=== PATIENT | female | born 1950 | race Caucasian/White ===

== ENCOUNTER 2018-01-14 00:30 | Inpatient (IN) | payer OTHER, MEDICAID ==
[2018-01-14] VITALS (11 sets, daily range): BP systolic 116–241; BP diastolic 41–116
[~2018-01-14] VITALS: Ht 172.7 cm; Wt 88.9 kg
--- NOTE | 2018-01-14 00:42 | NUR ---
BIB WHEELCHAIR TO ER BED 3
--- NOTE | 2018-01-14 00:50 | NUR ---
67/F CAME IN W C/O 07/20 GENERALIZED HEADACHE, ACUTE ONSE X 2 DAYS. PT REPORTS NAUSEA, DENIES V/D, DENIES VISUAL DISTURBANCES.AOX4, GCS 15. PMH: HTN, DM Addendum: 01/14/18 at 0109 by MEDNK DENIES SOB/CP. ALL LUNG SOUNDS CBTA, 16 RR EVEN AND UNLABORED. ELEVATED BP 231/113, ER MD MARCANO AWARE
[2018-01-14 00:57] LABS: BASOPHILS # (AUTO) 0.1 K/uL (0.00-0.22); BASOPHILS % (AUTO) 0.6 % (0.0-2.0); EOSINOPHILS % (AUTO) 0.5 % (0.0-4.0); HEMATOCRIT 37.3 % (36-48); LYMPHOCYTES # (AUTO) 3.1 K/uL (2.5-16.5); LYMPHOCYTES % (AUTO) 33.2 % (20.5-51.1); MEAN CORPUSCULAR HEMOGLOBIN 27 pg (27-31); MEAN CORPUSCULAR HGB CONC 32 g/dL (33-37); MEAN CORPUSCULAR VOLUME 84.8 fL (80-94); MONOCYTES # (AUTO) 0.5 K/uL (0.8-1.0); MONOCYTES % (AUTO) 5.2 % (1.7-9.3); NEUTROPHILS # (AUTO) 5.7 K/uL (1.8-7.7); NEUTROPHILS % (AUTO) 60.5 % (42.2-75.2); PLATELET COUNT (AUTO) 367 K/uL (140-450); RED CELL DISTRIBUTION WIDTH 13.4 % (11.6-13.7); WHITE BLOOD COUNT (AUTO) 9.5 K/uL (4.8-10.8)
[2018-01-14 01:15] LABS: PROTHROMBIN TIME 9.9 secs (10.8-13.4)
--- NOTE | 2018-01-14 01:20 | NUR ---
PT TAKEN TO CT
[2018-01-14 01:21] LABS: ANION GAP 17.3 (8-16); CARBON DIOXIDE 22.5 mmol/L (21-32); POTASSIUM 3.8 mmol/L (3.5-5.1)
[2018-01-14 01:22] LABS: ALBUMIN 3.6 g/dL (3.4-5.0); CREATININE 1.8 mg/dL (0.6-1.3); TOTAL BILIRUBIN 0.5 mg/dL (0.0-1.0)
[2018-01-14] MEDS ORDERED: LABETALOL 100 MG/20 ML VIAL IVP ONE (01:25)
[2018-01-14 01:26] LABS: CREATINE KINASE MB 4.5 ng/mL (0-3.6)
[2018-01-14] MEDS ORDERED: INSULIN REGULAR, HUMAN 100 UNIT/ML VIAL IVP ONE (01:30)
[2018-01-14 01:48] LABS: FREE T4 (FREE THYROXINE) 0.96 ng/dL (0.76-1.46); THYROID STIMULATING HORMONE 0.75 uIU/mL (0.34-3.74)
[2018-01-14 02:18] LABS: BARBITURATE, URINE NEGATIVE ng/ml (NEG <=200); BENZODIAZEPINE, URINE NEGATIVE ng/mL (NEG <=200); CANNABINOID, URINE NEGATIVE ng/mL (NEG <=50); COCAINE, URINE NEGATIVE ng/mL (NEG <=300); OPIATE, URINE NEGATIVE ng/mL (NEG <=2000); PHENCYCLIDINE SCREEN,URINE NEGATIVE ng/mL (NEG <=25)
[2018-01-14] MEDS ORDERED: ASPIRIN 325 MG TAB PO ONE (02:25)
[2018-01-14] MEDS ORDERED: INSULIN REGULAR, HUMAN 100 UNIT in NACL 0.9% 100 ML IV ONE ×2 (02:25)
--- NOTE | 2018-01-14 03:00 | NUR ---
Patient will be admitted to care of [facility]. Admited to ICU. Will go to room 5. Belongings list completed. BEDSIDE Report to SHOLA LINTON. INSULIN DRIP INFUSING
--- NOTE | 2018-01-14 03:10 | NUR ---
RECEIVED PT FROM ED NURSE.
--- NOTE | 2018-01-14 03:18 | NUR ---
PT ALERT AND ORIENTED X3, DROWSY, HISTORY OF CATARACTS. ABLE TO MOVE ALL EXTREMITIES, CLEAR SPEECH, S1 S2, NO EDEMA NOTED. BP ELEVATED 190S. LUNGS CLEAR TO AUSCULTATION, ABD SOFT NON DISTENDED, ACTIVE BOWEL SOUNDS. PT STATES SHE VOIDS REGULARLY. SKIN INTACT. PERIPHERAL IV TO R AC, INSULIN DRIP RUNNING @ 5 UNITS/HR. NO S/S OF DISTRESS NOTED. PT DENIES PAIN @ THIS TIME. WILL CONTINUE TO OBSERVE.
--- NOTE | 2018-01-14 03:20 | NUR ---
CALLED DR. SIMMONS FOR ORDERS FOR ELEVATED BP, ELEVATED BLOOD SUGAR. NEW ORDERS GIVEN, WILL CARRY OUT. SEE ORDER HISTORY FOR DETAILS.
[2018-01-14] MEDS ORDERED: LABETALOL 100 MG/20 ML VIAL ONE (03:37)
[2018-01-14] MEDS: LABETALOL 100 MG/20 ML VIAL IV PRN ×2 (03:42→20:56)
[2018-01-14] MEDS: INSULIN REGULAR, HUMAN 100 UNIT in NACL 0.9% 100 ML IV SCH ×12 (03:43→23:02)
[2018-01-14] MEDS ORDERED: LORazepam 2 MG/ML VIAL IVP PRN (03:45)
[2018-01-14] MEDS ORDERED: MORPHINE SULFATE 4 MG/ML SYR IVP PRN (03:45)
[2018-01-14] MEDS ORDERED: ONDANSETRON 4 MG/2 ML VIAL IVP PRN (03:45)
[2018-01-14] MEDS ORDERED: ACETAMINOPHEN 325 MG TAB PO PRN (03:45)
[2018-01-14] MEDS: NACL 0.9% 1,000 ML IV SCH ×3 (04:49→23:58)
[2018-01-14] MEDS: cloNIDine 0.1 MG TAB PO PRN (04:49)
--- NOTE | 2018-01-14 04:49 | NUR ---
BP STILL ELEVATED, PRN CLONIDINE GIVEN
--- NOTE | 2018-01-14 06:11 | NUR ---
bs checked 435; pt remained on insulin drip at 5 units/hr
[2018-01-14] MEDS ORDERED: GLIP10TE PO (06:40)
[2018-01-14] MEDS ORDERED: [UNRECOGNIZED DRUG - CODE] PO (06:40)
[2018-01-14] MEDS ORDERED: METF850T PO (06:40)
[2018-01-14] MEDS ORDERED: LIP80 PO (06:40)
[2018-01-14] MEDS ORDERED: LORA-476 PO (06:40)
[2018-01-14] MEDS ORDERED: BLEOS OP (06:40)
--- NOTE | 2018-01-14 07:07 | NUR ---
BS CHECKED 402, INSULIN DRIP @ 5 UNITS/HR.
--- NOTE | 2018-01-14 07:10 | NUR ---
RECEIEVED REPORT FROM LIZ JOLLEY RN. PT IS SLEEP IN BED. PT IS AMBULATORY AND MOVES ALL EXTREMITIES. PT IS A&0X4. PERRLA. S1S2 HEARD. PT LUNG SOUNDS ARE CLEAR BILATERALLY. BOWEL SOUNDS ARE PRESENT AND ACTIVE IN ALL 4 QUADRANTS. PT HAS INSULIN DRINK 5 UNITS/ HR RUNNING, NS RUNNING 100ML/HR. PT HAS SCDS IN PLACE. PT'S BED IS IN LOWEST POSITION, BED LOCK AND ALARM ON, CALL LIGHT WITHIN REACH. Addendum: 01/14/18 at 1002 by Raysa Galan RN PTS SKIN IS IN TACT, WARM AND DRY. PT IS ABLE TO VOCALIZED ALL NEEDS.
--- NOTE | 2018-01-14 07:28 | NUR ---
REPORT GIVEN TO AM NURSE, ENDORSED POC. NO ACUTE DISTRESS NOTED.
[2018-01-14] MEDS: HYDROcodone/APAP 5/325 MG 1 TAB TAB PO PRN (08:45)
[2018-01-14] MEDS ORDERED: LORazepam 1 MG TAB PO PRN (09:35)
[2018-01-14] MEDS ORDERED: HYDROCHLOROTHIAZIDE 25 MG TAB PO SCH (09:42)
--- NOTE | 2018-01-14 09:45 | NUR ---
DR. SIMMONS CAME TO SEE PT. SPOKE WITH PT AND DAUGHTER.
[2018-01-14 09:48] LABS: CREATINE KINASE MB 1.9 ng/mL (0-3.6)
[2018-01-14] MEDS: BLOOD GLUCOSE MONITORING 1 DEV DEV FS SCH ×14 (10:00→23:01)
--- NOTE | 2018-01-14 10:17 | NUR ---
PATIENT HAS BEEN SCREENED AND CATEGORIZED HIGH NUTRITION RISK. PATIENT WILL BE SEEN WITHIN 1-2 DAYS OF ADMISSION. 01/14/18 - 01/15/[address]
--- NOTE | 2018-01-14 11:00 | NUR ---
PT RESTING COMFORTABLY. NO FAMILY PRESENT AT MOMENT
--- NOTE | 2018-01-14 12:30 | NUR ---
PTS FAMILY AT BEDSIDE. PT IS RESTING AND STATES SHE FEELS MUCH MORE COMFORTABLE.
[2018-01-14] MEDS: PREDNISOL/SULFACE 0.23%-10% OP SOL. 5 ML BTL LEFT EYE SCH ×3 (13:00→20:16)
--- NOTE | 2018-01-14 13:15 | NUR ---
PT ASKED IF SHE CAN EAT SHE IS STARVING, EDUCATED HER ON BLOOD SUGAR, INSULIN, FOOD. PT EDUCATION GIVEN AND SHE WAS THANKFUL FOR ADVISE SHE ADMITTED HER DM IS POORLY CONTROLLED.
[2018-01-14] MEDS ORDERED: PROBIOTIC SCREEN 1 EA MISC MC PRN (14:50)
--- NOTE | 2018-01-14 15:00 | NUR ---
HOURLY BLOOD SUGAR CHECKS. FAMILY AT BEDSIDE. BED ALARM ON, LOCK ON, CALL LIGHT WITHIN REACH, BED IN LOWEST PERSON.
--- NOTE | 2018-01-14 16:50 | NUR ---
NOTIFIED DR. PRESTON WHEN SHE ARRIVED TO SEE PT OF PTS CURRENT HIGH BLOOD PRESSURE. RECEIVED NEW ORDERS. WILL CLOSELY MONITOR.
[2018-01-14] MEDS ORDERED: NIFEdipine 30 MG TABER PO SCH (17:00)
--- NOTE | 2018-01-14 17:00 | NUR ---
PT IS BACK ASLEEP AFTER FAMILY LEFT. SHE HAS HAD A LOT OF FAMILY AT BEDSIDE AND STATED SHE IS UNABLE TO REST. I HAVE ASKED FAMILY TO COME BACK LATER AFTER PT HAS RESTED.
--- NOTE | 2018-01-14 18:00 | NUR ---
WHEN FAMILY LEFT EARLIER, I ASKED GRANDSON, TO BRING IN HIS GRANDMOTHERS MEDICATION FROM HOME IN WHICH SHE FREQUENTLY TAKES. MEDICATION RECONCILIATION IS SHOWING A FEW MEDICATIONS HER FAMILY MEMBERS DO NOT BELIEVE SHE IS TAKING. SAMANTHA JUST CALLED BACK SAYING HE WILL BRING IN ALL THE MEDS. HE READ ALOUD WHICH MEDICATION SHE HAS AT HOME IN ADDITION TO THE DATES. MANY ARE FROM 2017. FAMILY HAS ALSO ELECTED TO HAVE PT'S SON; CHRISTIANO PERRY, EMERGENCY CONTRACT HE IS HER MAIN CAREGIVER. PT HAS OVER 10 SIBLINGS AND FAMILY HAS DECIDED THAT ANDREEA WILL BE THE POINT OF CONTACT AND TO DIRECT FAMILY MEMBERS WHO CALL TO SPEAK WITH ANDREEA FOR UPDATES.
--- NOTE | 2018-01-14 18:45 | NUR ---
FIRST COLLECTION OF URINE FOR 24 HR URINE COLLECTION.
--- NOTE | 2018-01-14 19:20 | NUR ---
PHONE CALL MADE TO DR GUILLEN, TIMBER SELECTOR; LEFT MESSAGE TO CALL RN BACK.AWAITING REPLY
--- NOTE | 2018-01-14 19:30 | NUR ---
ASSUMED CARE OF PT.INITIAL ASSESSMENT COMPLETED.PT AWAKE ALERT AND ORIENTED X4.SR ON MONITOR.W/ PERIPHERAL IV TO RT AC G20 INFUSING INSULIN DRIP AT 3UNITS/HOUR; CANNULA OUT, INSULIN DRIP TRANSFERRED TO RT HAND G22 INTACT.PT DENIES N/V.SKIN INTACT.DENIES PAIN.REPOSITIONED.
[2018-01-14] MEDS: glipiZIDE 5 MG TAB PO SCH (20:15)
[2018-01-14] MEDS: ATORVASTATIN 80 MG TAB PO SCH (20:15)
--- NOTE | 2018-01-14 20:38 | NUR ---
SPOKE WITH DR. SAI SIMMONS (CARDIO) AT 2034 REGARDING CONSULT, MD SAID THAT HE WILL COME AND SEE THE PATIENT TOMORROW.
[2018-01-14] MEDS ORDERED: metFORMIN 850 MG TAB PO SCH (21:00)
--- NOTE | 2018-01-14 22:20 | NUR ---
FAMILY IN THE UNIT.UPDATED ON PTS PRESENT CONDITION.QUESTIONS ANSWERED. PT ASLEEP;EASILY AROUSABLE.NO SOB NOTED ON ROOM AIR.INSULIN AT 2 UNITS/HR AT THIS TIME.WILL CONTINUE TO CLOSELY MONITOR PT
[2018-01-15] VITALS (12 sets, daily range): BP systolic 107–165; BP diastolic 48–82
[2018-01-15] MEDS: BLOOD GLUCOSE MONITORING 1 DEV DEV FS SCH ×24 (00:02→23:07)
[2018-01-15] MEDS: INSULIN REGULAR, HUMAN 100 UNIT in NACL 0.9% 100 ML IV SCH ×40 (00:03→20:12)
--- NOTE | 2018-01-15 00:07 | NUR ---
pt up to bedside commode to urinate. continued on 24 hour urine collection.no sob noted on room air.denies pain.
--- NOTE | 2018-01-15 02:30 | NUR ---
PT ASLEEP;NO SIGNS OF DISTRESS NOTED.STILL ON INSULIN DRIP AT 1UNIT/HR.NO SOB NOTED
--- NOTE | 2018-01-15 05:09 | NUR ---
MORNING CARE DONE.PT UP TO BEDSIDE COMMODE.VOIDED.DENIES PAIN.
--- NOTE | 2018-01-15 06:20 | NUR ---
BS 131; CONTINUED ON INSULIN DRIP AT 1UNITS/HR.TOLERATING ROOM AIR .NO SOB NOTED.DENIES PAIN.
[2018-01-15 07:15] LABS: BASOPHILS # (AUTO) 0.1 K/uL (0.00-0.22); BASOPHILS % (AUTO) 0.6 % (0.0-2.0); EOSINOPHILS # (AUTO) 0.1 K/uL (0-0.4); EOSINOPHILS % (AUTO) 1.4 % (0.0-4.0); HEMATOCRIT 31.8 % (36-48); HEMOGLOBIN 10.4 g/dL (12.0-16.0); LYMPHOCYTES # (AUTO) 3.1 K/uL (2.5-16.5); LYMPHOCYTES % (AUTO) 30.2 % (20.5-51.1); MEAN CORPUSCULAR HEMOGLOBIN 28 pg (27-31); MEAN CORPUSCULAR HGB CONC 33 g/dL (33-37); MONOCYTES # (AUTO) 0.5 K/uL (0.8-1.0); MONOCYTES % (AUTO) 5.1 % (1.7-9.3); NEUTROPHILS # (AUTO) 6.4 K/uL (1.8-7.7); NEUTROPHILS % (AUTO) 62.7 % (42.2-75.2); PLATELET COUNT (AUTO) 268 K/uL (140-450); RED BLOOD CELL COUNT(AUTO) 3.79 MIL/uL (4.20-5.40); RED CELL DISTRIBUTION WIDTH 13.4 % (11.6-13.7); WHITE BLOOD COUNT (AUTO) 10.3 K/uL (4.8-10.8)
--- NOTE | 2018-01-15 07:25 | NUR ---
REPORT RECEIVED FROM NIGHT RN FOR CONTINUITY OF CARE. PATIENT IS AAO X4. SKIN WARM TO TOUCH WNL, TOENAILS WNL, NO EDEMA, FINE HAIR GROWTH AND +2 BILATERAL PEDAL PULSES. URINE AND BOWEL CONTINENT ABLE TO USE BEDSIDE COMMODE. RFA PERIPHERAL IV PATENT AND INTACT. CALL LIGHT WITHIN REACH. SAFETY MEASURES IN PLACE. WILL CONTINUE TO MONITOR.
[2018-01-15 07:40] LABS: ALBUMIN 2.7 g/dL (3.4-5.0); ANION GAP 16.2 (8-16); CARBON DIOXIDE 20.8 mmol/L (21-32); CREATININE 1.5 mg/dL (0.6-1.3); MAGNESIUM 2.1 mg/dL (1.8-2.4); PHOSPHORUS 3.1 mg/dL (2.5-4.9); TOTAL BILIRUBIN 0.4 mg/dL (0.0-1.0)
[2018-01-15 07:43] LABS: ANION GAP 16.7 (8-16); CARBON DIOXIDE 21.3 mmol/L (21-32); CREATININE 1.5 mg/dL (0.6-1.3)
[2018-01-15 07:59] LABS: CREATINE KINASE MB 3.6 ng/mL (0-3.6)
[2018-01-15] MEDS: NIFEdipine 30 MG TABER PO SCH (08:19)
[2018-01-15] MEDS: glipiZIDE 5 MG TAB PO SCH ×2 (08:19→20:46)
[2018-01-15] MEDS: HYDROCHLOROTHIAZIDE 25 MG TAB PO SCH (08:20)
--- NOTE | 2018-01-15 08:50 | NUR ---
DR. JULIA MANCINI IN, SEEN AND EXAMINED PATIENT. WILL FOLLOW UP WITH ORDERS.
[2018-01-15] MEDS: PREDNISOL/SULFACE 0.23%-10% OP SOL. 5 ML BTL LEFT EYE SCH ×4 (09:00→20:51)
[2018-01-15] MEDS ORDERED: LUBIPROSTONE PO SCH (09:00)
--- NOTE | 2018-01-15 09:48 | NUR ---
01/15/18 RD INITIAL ASSESSMENT COMPLETED PLEASE REFER TO NUTRITION ASSESSMENT UNDER CARE ACTIVITY FOR ESTIMATED NUTRITIONAL NEEDS. RD RECOMMENDATIONS: 1. CONTINUES ON CARDIAC, CCHO 60 GM DIET TOLERATED. 2. CONSULT RDN PRN. 3. RD WILL F/U 7 DAYS; LOW RISK. 5. RDN PROVIDED DIABETES/HEART HEALTHY DIET EDUCATION TO PATIENT AND/OR FAMILY; PT AND FAMILY ACCEPTED DIABETES/HEART HEALTHY DIET EDUCATION. DOMINGA LESLIE, , RDN
[2018-01-15] MEDS: NACL 0.9% 1,000 ML IV SCH ×2 (10:36→20:46)
--- NOTE | 2018-01-15 11:10 | NUR ---
DR. SIMMONS IN, SEEN AND EXAMINED PATIENT. WILL FOLLOW UP ON ORDERS.
[2018-01-15] MEDS: CHLORHEXADINE GLUC 2% CLOTH TP SCH (12:09)
[2018-01-15] MEDS: MUPIROCIN 2% OINT 22 GM TUBE TP SCH (13:45)
--- NOTE | 2018-01-15 19:25 | NUR ---
REPORT GIVEN TO NIGHT RN FOR CONTINUITY OF CARE. PATIENT IN STABLE CONDITION.
--- NOTE | 2018-01-15 19:30 | NUR ---
RECEIVED PT FROM DAY NURSE. NO ACUTE DISTRESS NOTED. WILL CONTINUE TO OBSERVE.
--- NOTE | 2018-01-15 19:45 | NUR ---
PT AAOX4, SITTING UP IN BED. NSR ON MONITOR S1 S2 NO EDEMA NOTED. LUNGS CTA. DENIES N/V/D. VOIDING IN BSC @ BEDSIDE. INSULIN DRIP RUNNING INTO R FOREARM. NS IVF RUNNING INTO R HAND. DENIES PAIN, DIZZINESS @ THIS TIME. NO ACUTE DISTRESS NOTED. WILL CONTINUE TO MONITOR.
[2018-01-15] MEDS: DOCUSATE SODIUM 100 MG GELCAP PO SCH (20:46)
[2018-01-15] MEDS: ATORVASTATIN 80 MG TAB PO SCH (20:46)
--- NOTE | 2018-01-15 21:30 | NUR ---
SON, HARLAN, CALLED UPDATED FAMILY WITH PT STATUS. NO ACUTE DISTRESS. WILL CONTINUE TO OBSERVE.
--- NOTE | 2018-01-15 23:15 | NUR ---
ASSISTED TO BEDSIDE COMMODE, 800 ML CLEAR YELLOW URINE NOTED.
[2018-01-16] VITALS (10 sets, daily range): BP systolic 124–171; BP diastolic 67–127
[2018-01-16] MEDS: BLOOD GLUCOSE MONITORING 1 DEV DEV FS SCH ×14 (00:33→20:22)
--- NOTE | 2018-01-16 01:30 | NUR ---
PT ASLEEP, RESTING COMFORTABLY NO S/S OF ACUTE DISTRESS NOTED. WILL CONTINUE TO OBSERVE.
--- NOTE | 2018-01-16 02:48 | NUR ---
PT RESTING COMFORTABLY NO S/S OF ACUTE DISTRESS NOTED. WILL CONTINUE TO MONITOR.
--- NOTE | 2018-01-16 04:35 | NUR ---
CHG BATH GIVEN, BACTROBAN APPLIED TO NARES PER PROTOCOL. LINEN CHANGED. PT SAT UP TO BEDSIDE COMMODE. PT DENIES PAIN @ THIS TIME. WILL CONTINUE TO OBSERVE.
[2018-01-16] MEDS: NACL 0.9% 1,000 ML IV SCH ×2 (05:26→19:29)
--- NOTE | 2018-01-16 06:35 | NUR ---
PT ASLEEP IN BED, VSS, DENIES PAIN. NO ACUTE DISTRESS. CONTINUE TO MONITOR
[2018-01-16 07:13] LABS: BASOPHILS # (AUTO) 0.1 K/uL (0.00-0.22); BASOPHILS % (AUTO) 0.6 % (0.0-2.0); EOSINOPHILS # (AUTO) 0.2 K/uL (0-0.4); HEMATOCRIT 31.6 % (36-48); HEMOGLOBIN 10.4 g/dL (12.0-16.0); LYMPHOCYTES # (AUTO) 2.7 K/uL (2.5-16.5); LYMPHOCYTES % (AUTO) 28.8 % (20.5-51.1); MEAN CORPUSCULAR HEMOGLOBIN 27 pg (27-31); MEAN CORPUSCULAR HGB CONC 33 g/dL (33-37); MEAN CORPUSCULAR VOLUME 83.3 fL (80-94); MONOCYTES # (AUTO) 0.5 K/uL (0.8-1.0); MONOCYTES % (AUTO) 5.7 % (1.7-9.3); NEUTROPHILS # (AUTO) 5.8 K/uL (1.8-7.7); NEUTROPHILS % (AUTO) 62.9 % (42.2-75.2); PLATELET COUNT (AUTO) 280 K/uL (140-450); RED BLOOD CELL COUNT(AUTO) 3.79 MIL/uL (4.20-5.40); WHITE BLOOD COUNT (AUTO) 9.3 K/uL (4.8-10.8)
[2018-01-16 07:23] LABS: ANION GAP 12.3 (8-16); CARBON DIOXIDE 22.8 mmol/L (21-32); CREATININE 1.2 mg/dL (0.6-1.3); POTASSIUM 4.1 mmol/L (3.5-5.1)
--- NOTE | 2018-01-16 07:29 | NUR ---
RECEIVED REPORT FROM NOC SHIFT RN. PT RESTING IN BED AWAKE, COMFORTABLY. SR ON MONITOR. PT A/O X4, ABLE TO MAKE NEEDS KNOWN. SKIN DRY AND WARM TO TOUCH, AFEBRILE. LUNGS SOUND CLEAR ON AUSCULTATION. PERIPHERAL LINES ON RIGHT FOREARM 22G AND RIGHT HAND 22G, INTACT. NS RUNNING AT 100 ML/HR. ABDOMEN SOFT ROUND AND NON-TENDER. ACTIVE BOWEL SOUND ON AUSCULTATION. DENIES PAIN AT THIS TIME. KEPT HOB ELEVATED. CALL LIGHT WITHIN REACH, BED IN LOW POSITION LOCKED. WILL CONTINUE TO MONITOR.
--- NOTE | 2018-01-16 07:29 | NUR ---
ENDORSED CARE TO DAY SHIFT RN. NO ACUTE DISTRESS NOTED.
[2018-01-16 07:31] LABS: MAGNESIUM 1.8 mg/dL (1.8-2.4); PHOSPHORUS 3.1 mg/dL (2.5-4.9)
[2018-01-16] MEDS: glipiZIDE 5 MG TAB PO SCH ×2 (08:23→20:24)
[2018-01-16] MEDS: NIFEdipine 30 MG TABER PO SCH (08:23)
[2018-01-16] MEDS: HYDROCHLOROTHIAZIDE 25 MG TAB PO SCH (08:24)
[2018-01-16] MEDS: PREDNISOL/SULFACE 0.23%-10% OP SOL. 5 ML BTL LEFT EYE SCH ×4 (08:26→20:23)
--- NOTE | 2018-01-16 08:28 | NUR ---
ADMINISTERED MEDICATION PER ORDERED. WILL CONTINUE TO MONITOR.
--- NOTE | 2018-01-16 09:29 | NUR ---
VEE AT BEDSIDE TALKING TO PT.
--- NOTE | 2018-01-16 09:53 | NUR ---
PT SEEN BY DR. MANCINI. WILL FOLLOW UP WITH ORDER.
[2018-01-16] MEDS: LABETALOL 100 MG/20 ML VIAL IV PRN ×2 (10:10→20:23)
[2018-01-16] MEDS ORDERED: DEXTROSE 50% 50 ML SYR IVP PRN (10:35)
[2018-01-16] MEDS: cloNIDine 0.1 MG TAB PO PRN (11:30)
[2018-01-16] MEDS: INSULIN LISPRO SLIDING SCALE 100 UNITS/ML VIAL SUBQ PRN ×3 (11:43→20:31)
[2018-01-16] MEDS: MUPIROCIN 2% OINT 22 GM TUBE TP SCH (12:55)
[2018-01-16] MEDS: CHLORHEXADINE GLUC 2% CLOTH TP SCH (12:56)
--- NOTE | 2018-01-16 13:00 | NUR ---
SEEN BY DR. MORALES. WILL FOLLOW UP ON ORDER.
--- NOTE | 2018-01-16 14:50 | NUR ---
PT SLEEPING IN BED. BP 144/72. NO RESPIRATORY DISTRESS NOTED. NO CHANGE IN LOC. WILL CONTINUE TO MONITOR.
--- NOTE | 2018-01-16 17:14 | NUR ---
PT TRANFERRED TO TELE UNIT BED 113 SAFELY VIA WHEELCHAIR. PT ON STABLE CONDITION. T-98 P -82 RR- 15 BP 144/69 SPO2 98%. BELONGING HANDED TO PT AND FAMILY. REPORT GIVEN TO TELE NURSE
--- NOTE | 2018-01-16 17:15 | NUR ---
PATIENT ARRIVED ON MST UNIT FROM ICU VIA WHEELCHAIR. PATIENT ABLE TO AMBULATE FROM WHEELCHAIR TO MST BED WITH STEADY GAIT. NO DISTRESS NOTED. DENIES ANY PAIN AT THIS TIME. RESPIRATIONS EVEN, UNLABORED, ON ROOM AIR. AAOX4, CALM, COOPERATIVE, SKIN COLOR APPROPRIATE TO ETHNICITY, WARM TO TOUCH. SKIN IS INTACT. LUNGS CTA ON ALL LOBES. ABDOMEN SOFT, OBESE. IV SITE INTACT, PATENT AND INFUSING IVF PER ORDERS. ORIENTED PATIENT TO ROOM AND CALL LIGHT. REVIEWED PLAN OF CARE WITH PATIENT. PATIENT VERBALIZED UNDERSTANDING. WILL CONTINUE TO MONITOR.
--- NOTE | 2018-01-16 18:30 | NUR ---
PATIENT SITTING IN BED WITH DINNER TRAY IN FRONT. NO DISTRESS NOTED. DENIES ANY PAIN. WILL CONTINUE TO MONITOR.
--- NOTE | 2018-01-16 19:15 | NUR ---
GAVE REPORT TO FORESTRY FARM LABORER NURSE FOR CONTINUITY OF CARE. PATIENT IN STABLE CONDITION.
--- NOTE | 2018-01-16 19:16 | NUR ---
RECEIVED REPORT FROM DAY NURSE, PT IN STABLE CONDITION. NO S/S OF DISTRESS NOTED. PT ON RA, AAOX4. IV TO RH 22G, AND R FA 22G, PATENT AND INTACT, INFUSING WELL. SKIN IS WARM AND DRY TO TOUCH, INTACT. RR EVEN/UNLABORED. INITIAL ASSESSMENT COMPLETED, PLAN OF CARE DISCUSSED WITH PT AND FAMILY AT THE BEDSIDE, VERBALIZED UNDERSTANDING. ALL SAFETY PRECAUTIONS MET, CALL LIGHT WITHIN REACH, BOARD UPDATED, WILL CONTINUE TO MONITOR
[2018-01-16] MEDS: ATORVASTATIN 80 MG TAB PO SCH (20:23)
[2018-01-16] MEDS: DOCUSATE SODIUM 100 MG GELCAP PO SCH (20:24)
[2018-01-16] MEDS: HYDROcodone/APAP 5/325 MG 1 TAB TAB PO PRN (20:24)
--- NOTE | 2018-01-16 21:30 | NUR ---
VSS; PT RESTING COMFORTABLY IN BED, NO S/S OF DISTRESS NOTED; RR EVEN/UNLABORED; ALL SAFETY PRECAUTIONS MET, WILL CONTINUE TO MONITOR.
[2018-01-17] VITALS: BP 142/65
--- NOTE | 2018-01-17 | NUR ---
VSS; PT RESTING COMFORTABLY IN BED, NO S/S OF DISTRESS NOTED; RR EVEN/UNLABORED; ALL SAFETY PRECAUTIONS MET, WILL CONTINUE TO MONITOR.
[2018-01-17 04:00] VITALS: BP 144/68
--- NOTE | 2018-01-17 04:06 | NUR ---
VSS; PT RESTING COMFORTABLY IN BED, NO S/S OF DISTRESS NOTED; RR EVEN/UNLABORED; ALL SAFETY PRECAUTIONS MET, WILL CONTINUE TO MONITOR.
[2018-01-17] MEDS: NACL 0.9% 1,000 ML IV SCH (05:52)
[2018-01-17] MEDS: BLOOD GLUCOSE MONITORING 1 DEV DEV FS SCH ×3 (06:47→16:30)
[2018-01-17 06:58] LABS: BASOPHILS # (AUTO) 0.1 K/uL (0.00-0.22); BASOPHILS % (AUTO) 0.8 % (0.0-2.0); EOSINOPHILS # (AUTO) 0.2 K/uL (0-0.4); EOSINOPHILS % (AUTO) 2.2 % (0.0-4.0); HEMATOCRIT 31.6 % (36-48); HEMOGLOBIN 10.3 g/dL (12.0-16.0); LYMPHOCYTES % (AUTO) 35.6 % (20.5-51.1); MEAN CORPUSCULAR HEMOGLOBIN 27 pg (27-31); MEAN CORPUSCULAR HGB CONC 33 g/dL (33-37); MEAN CORPUSCULAR VOLUME 83.8 fL (80-94); MONOCYTES # (AUTO) 0.5 K/uL (0.8-1.0); MONOCYTES % (AUTO) 5.6 % (1.7-9.3); NEUTROPHILS # (AUTO) 4.7 K/uL (1.8-7.7); NEUTROPHILS % (AUTO) 55.8 % (42.2-75.2); PLATELET COUNT (AUTO) 284 K/uL (140-450); RED BLOOD CELL COUNT(AUTO) 3.77 MIL/uL (4.20-5.40); RED CELL DISTRIBUTION WIDTH 13.4 % (11.6-13.7); WHITE BLOOD COUNT (AUTO) 8.5 K/uL (4.8-10.8)
[2018-01-17 07:26] LABS: ALBUMIN 2.6 g/dL (3.4-5.0); ANION GAP 13.3 (8-16); CARBON DIOXIDE 22.7 mmol/L (21-32); CREATININE 1.2 mg/dL (0.6-1.3); MAGNESIUM 1.8 mg/dL (1.8-2.4); PHOSPHORUS 3.6 mg/dL (2.5-4.9); TOTAL BILIRUBIN 0.3 mg/dL (0.0-1.0)
--- NOTE | 2018-01-17 07:27 | NUR ---
REPORT GIVEN TO DAY SHIFT NURSE FOR CONTINUITY OF CARE, PT IN STABLE CONDITION
--- NOTE | 2018-01-17 07:28 | NUR ---
RECEIVED REPORT FROM WASTE MANAGEMENT RECYCLING TECHNICIAN NURSE. PATIENT SITTING LYING IN BED SLEEPING, AROUSABLE BY VOICE. NO DISTRESS NOTED. DENIES ANY PAIN AT THIS TIME. RESPIRATIONS EVEN, UNLABORED, ON ROOM AIR. AAOX4, CALM, COOPERATIVE, SKIN COLOR APPROPRIATE TO ETHNICITY, WARM TO TOUCH. SKIN IS INTACT. LUNGS CTA ON ALL LOBES. ABDOMEN SOFT, NON-DISTENDED. IV SITE INTACT, PATENT, AND INFUSING IVF PER ORDERS. REVIEWED PLAN OF CARE WITH PATIENT. PATIENT VERBALIZED UNDERSTANDING. SAFETY MEASURES IN PLACE, CALL LIGHT WITHIN REACH. WILL CONTINUE TO MONITOR.
[2018-01-17 08:00] VITALS: BP 145/72
[2018-01-17] MEDS ORDERED: NIFEdipine 30 MG TABER PO SCH (09:00)
[2018-01-17] MEDS: PREDNISOL/SULFACE 0.23%-10% OP SOL. 5 ML BTL LEFT EYE SCH ×3 (09:29→18:02)
[2018-01-17] MEDS: glipiZIDE 5 MG TAB PO SCH (09:29)
--- NOTE | 2018-01-17 09:32 | NUR ---
PATIENT LYING IN BED WATCHING TV. NO DISTRESS NOTED. DENIES ANY PAIN. SCHEDULED MEDICATIONS DUE GIVEN. SAFETY MEASURES IN PLACE, CALL LIGHT WITHIN REACH. WILL CONTINUE TO MONITOR.
--- NOTE | 2018-01-17 11:00 | NUR ---
PATIENT SITTING IN BED WATCHING TV. NO DISTRESS NOTED. DENIES ANY PAIN. CONDITION UNCHANGED. WILL CONTINUE TO MONITOR.
[2018-01-17 12:00] VITALS: BP 185/92
[2018-01-17] MEDS: CHLORHEXADINE GLUC 2% CLOTH TP SCH (12:30)
[2018-01-17] MEDS: MUPIROCIN 2% OINT 22 GM TUBE TP SCH (12:30)
[2018-01-17] MEDS: INSULIN LISPRO SLIDING SCALE 100 UNITS/ML VIAL SUBQ PRN (12:40)
[2018-01-17] MEDS: cloNIDine 0.1 MG TAB PO PRN (12:46)
--- NOTE | 2018-01-17 12:48 | NUR ---
PATIENT SITTING IN BED WITH LUNCH TRAY. NO DISTRESS NOTED. DENIES ANY PAIN AT THIS TIME. SCHEDULED MEDICATIONS DUE GIVEN. CLONIDINE GIVEN PRN DUE TO HIGH BP. SAFETY MEASURES IN PLACE, CALL LIGHT WITHIN REACH. WILL CONTINUE TO MONITOR.
[2018-01-17] MEDS ORDERED: INSULIN LANTUS 100 UNITS/ML 10 ML VIAL SUBQ SCH (13:29)
[2018-01-17 16:00] VITALS: BP 139/69
--- NOTE | 2018-01-17 16:30 | NUR ---
GAVE REPORT TO ROYER RAND FOR CONTINUITY OF CARE FOR PATIENT. ANSWERED ALL QUESTIONS. PATIENT IN STABLE CONDITION.
[2018-01-17] MEDS ORDERED: BACTO TP (17:34)
[2018-01-17] MEDS ORDERED: ADA30 PO (17:34)
[2018-01-17] MEDS ORDERED: DOCU-299 PO (17:34)
[2018-01-17 18:15] VITALS: BP 135/88
--- NOTE | 2018-01-17 18:56 | NUR ---
PATIENT DISCHARGE TO HOME WITH BY AMBULATE. ALERT AND ORIENTED X3 STABLE CONDITION. V/S STABLE. INSTRUCTED DISCHARGE MEDS,DM MANAGEMENT,INFECTION CONTROL,F/U MD APPOINTMENT DATE. PATIENT ABLE TO SIGN DC PAPER AND VERBALIZED UNDERSTANDING.
[2018-01-18] MEDS ORDERED: INSULIN LANTUS 100 UNITS/ML 10 ML VIAL SUBQ SCH (09:00)
== END 2018-01-17 18:40 | disposition home or self-care (01) | DRG 304 ==
LOC: MED 00:30 → MIC 02:27 → MTU 01-16 17:57
PROVIDERS: ADMIT Preventive Medicine Preventive Medicine/Occupational Environmental Medicine; ATTEND Preventive Medicine Preventive Medicine/Occupational Environmental Medicine
DX: I16.0 Hypertensive urgency (principal); N17.0 Acute kidney failure with tubular necrosis; E87.2 Acidosis; E87.1 Hypo-osmolality and hyponatremia; E11.21 Type 2 diabetes mellitus with diabetic nephropathy; E11.69 Type 2 diabetes mellitus with other specified complication; E11.65 Type 2 diabetes mellitus with hyperglycemia; E88.81 Metabolic syndrome and other insulin resistance; E11.22 Type 2 diabetes mellitus with diabetic chronic kidney disease; D64.9 Anemia, unspecified; N20.0 Calculus of kidney; I65.23 Occlusion and stenosis of bilateral carotid arteries; N18.9 Chronic kidney disease, unspecified; E88.09 Other disorders of plasma-protein metabolism, not elsewhere classified; I12.9 Hypertensive chronic kidney disease with stage 1 through stage 4 chronic kidney disease, or unspecified chronic kidney disease; I25.10 Atherosclerotic heart disease of native coronary artery without angina pectoris; H53.8 Other visual disturbances; E66.9 Obesity, unspecified; R79.89 Other specified abnormal findings of blood chemistry; Z22.322 Carrier or suspected carrier of Methicillin resistant Staphylococcus aureus; Z79.4 Long term (current) use of insulin; Z91.19 Patient's noncompliance with other medical treatment and regimen; Z68.29 Body mass index [BMI] 29.0-29.9, adult
CPT/HCPCS: 36415; 70450; 71045; 76770; 80048; 80053; 80305; 82330; 82550; 82553; 82570; 82803; 82948; 83036; 83540; 83690; 83735; 84100; 84439; 84443; 84484; 85025; 85610; 85730; 87081; 93005; 93880; 96374; 96375; 99291; J1815; J3490; J7030; Q0092

== ENCOUNTER 2018-12-18 12:30 | Inpatient (IN) | payer MEDICAID, OTHER ==
[~2018-12-18] VITALS: Ht 175.3 cm; Wt 66.7 kg
[~2018-12-18 12:30] MED LIST: BACTO TP; BLEOS OP; DOCU-299 PO; GLIP10TE PO; LIP80 PO; LORA-476 PO; NIFE30TE98 PO; [UNRECOGNIZED DRUG - CODE] PO
[2018-12-18 12:49] VITALS: BP 124/66
[2018-12-18 13:34] LABS: ANION GAP 12.2 (8-16); APPEARANCE,URINE CLEAR (CLEAR); BILIRUBIN,URINE NEGATIVE (NEGATIVE); BLOOD, URINE TRACE-L (NEGATIVE); CARBON DIOXIDE 28.7 mmol/L (21-32); COLOR,URINE YELLOW (YELLOW); CREATININE 1.8 mg/dL (0.6-1.3); LEUKOCYTE ESTERASE ,URINE NEGATIVE (NEGATIVE); NITRITE, URINE NEGATIVE (NEGATIVE); PH,URINE 5.5 (5.0-9.0); POTASSIUM 3.9 mmol/L (3.5-5.1); UGLUCOSE 2+ (NEGATIVE)
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
[2018-12-18 13:44] LABS: ALBUMIN 3.6 g/dL (3.4-5.0); TOTAL BILIRUBIN 0.5 mg/dL (0.0-1.0)
--- NOTE | 2018-12-18 13:46 | NUR ---
PT TO ER BED 5
--- NOTE | 2018-12-18 13:50 | NUR ---
PATIENT PRESENTS TO ED WITH BEBA CHEIF C/O DIZZINESS THAT STARTED 2 DAYS AGO. PT ALSO C/O PAIN ON RIGHT ARM. HAS LEFT DIEBETIC FOOT, COVERED WITH DRESSING, INTACT DRESSING. DENIES N/V/D SKIN IS PINK/WARM/DRY; AAOX4 WITH EVEN AND STEADY GAIT. PT DENIES ANY FEVER, CP, SOB, OR COUGH AT THIS TIME. PATIENT STATES PAIN OF 7/10 AT THIS TIME. VSS. PATIENT POSITIONED FOR COMFORT. HOB ELEVATED. BEDRAILS UP X2. BED DOWN. ER MD MADE AWARE OF PT STATUS.
[2018-12-18 13:57] LABS: WBC,URINE 0-5 /HPF (0-5)
[2018-12-18 14:05] LABS: BASOPHILS % (AUTO) 0.3 % (0.0-2.0); EOSINOPHILS # (AUTO) 0.2 K/uL (0-0.4); EOSINOPHILS % (AUTO) 1.9 % (0.0-4.0); HEMATOCRIT 34.5 % (36-48); HEMOGLOBIN 11.4 g/dL (12.0-16.0); LYMPHOCYTES # (AUTO) 2.7 K/uL (2.5-16.5); LYMPHOCYTES % (AUTO) 28.2 % (20.5-51.1); MEAN CORPUSCULAR HEMOGLOBIN 27 pg (27-31); MEAN CORPUSCULAR HGB CONC 33 g/dL (33-37); MEAN CORPUSCULAR VOLUME 82.3 fL (80-94); MONOCYTES # (AUTO) 0.4 K/uL (0.8-1.0); MONOCYTES % (AUTO) 3.7 % (1.7-9.3); NEUTROPHILS # (AUTO) 6.2 K/uL (1.8-7.7); NEUTROPHILS % (AUTO) 65.9 % (42.2-75.2); PLATELET COUNT (AUTO) 359 K/uL (140-450); WHITE BLOOD COUNT (AUTO) 9.5 K/uL (4.8-10.8)
--- NOTE | 2018-12-18 14:15 | NUR ---
NO C/O HEADACHE OR DIZZINESS AT THIS TIME.
[2018-12-18] MEDS ORDERED: NACL 0.9% 1,000 ML IV ONE (14:21)
[2018-12-18] MEDS ORDERED: MECLIZINE 25 MG TAB PO ONE (14:25)
[2018-12-18] MEDS ORDERED: METOCLOPRAMIDE 10 MG TAB PO ONE (14:25)
[2018-12-18] MEDS ORDERED: ONDANSETRON 4 MG/2 ML VIAL IVP ONE (14:25)
[2018-12-18] MEDS ORDERED: FAMOTIDINE 20 MG TAB PO ONE (14:25)
[2018-12-18] MEDS ORDERED: hydrOXYzine HCL 25 MG TAB PO ONE (14:25)
[2018-12-18 14:58] LABS: AMYLASE 49 U/L (25-115); LIPASE 211 U/L (73-393)
[2018-12-18 15:35] LABS: PROTHROMBIN TIME 9.3 secs (10.8-13.4)
[2018-12-18] MEDS ORDERED: ACETAMINOPHEN 325 MG TAB PO PRN (15:35)
[2018-12-18] MEDS ORDERED: LORazepam 2 MG/ML VIAL IM/IVP PRN (15:35)
[2018-12-18] MEDS ORDERED: ONDANSETRON 4 MG/2 ML VIAL IM/IVP PRN (15:35)
[2018-12-18] MEDS ORDERED: ZOLPIDEM 5 MG TAB PO PRN (15:35)
[2018-12-18] MEDS ORDERED: MORPHINE SULFATE 2 MG/ML SYR IVP PRN (15:35)
[2018-12-18] MEDS ORDERED: DOCUSATE SODIUM 100 MG GELCAP PO PRN (15:35)
[2018-12-18 16:00] VITALS: BP 168/84
[2018-12-18 16:06] LABS: MAGNESIUM 1.7 mg/dL (1.8-2.4); PHOSPHORUS 4.4 mg/dL (2.5-4.9); THYROID STIMULATING HORMONE 1.4 uIU/mL (0.34-3.74)
[2018-12-18] MEDS ORDERED: DEXTROSE 50% 50 ML SYR IVP PRN (16:25)
[2018-12-18] MEDS ORDERED: ALBUTEROL SULFATE/IPRATROPIU 3 ML SOL IH PRN (16:25)
[2018-12-18] MEDS: BLOOD GLUCOSE MONITORING 1 DEV DEV FS SCH ×2 (16:30→21:29)
[2018-12-18] MEDS ORDERED: MECLIZINE 25 MG TAB PO PRN (16:45)
--- NOTE | 2018-12-18 16:45 | NUR ---
Patient noted to have existing wounds upon arrival to ER. Photos taken of wound and placed in chart. Wound covered with dressing. Physician informed.
--- NOTE | 2018-12-18 16:49 | NUR ---
Patient will be admitted to care of Dr. Nguyen. Admited to tele unit. Will go to room 120A. Belongings list completed.
--- NOTE | 2018-12-18 17:00 | NUR ---
PT TRANSFERRED TO [facility] 120A VIA [facility] ON STABLE CONDITION. BELONGINGS TAKEN WITH PT. REPORT GIVEN TO CASSI.
--- NOTE | 2018-12-18 17:00 | NUR ---
RECEIVED BEDSIDE REPORT FROM ROYER CHIU. PATIENT AAOX4. PATIENT ON ROOM AIR, NO DISTRESS NOTED. L MEDIAL FOOT DIABETIC ULCER, OPEN TO AIR. FALL RISK PROTOCOL IN PLACE, WALKER AT BEDSIDE. IV ON R AC 20 G INFUSING NS AT 60. IV ASYMPTOMATIC, PATENT AND INTACT. PATIENT ON TELE MONITOR AND STANDARD PRECAUTIONS IN PLACE. MRSA SWAB OF BOTH NARES DONE AND SENT TO LAB. BED IN LOW POSITION, CALL LIGHT WITHIN REACH, SIDE RAILS X2 UP. WILL CONTINUE TO MONITOR.
[2018-12-18] MEDS: NACL 0.9% 1,000 ML IV SCH (17:45)
[2018-12-18] MEDS ORDERED: MAGNESIUM OXIDE 400 MG TAB PO SCH (18:00)
--- NOTE | 2018-12-18 18:50 | NUR ---
PATIENT SLEEPING. NO DISTRESS NOTED, ON ROOM AIR. WILL CONTINUE TO MONITOR.
--- NOTE | 2018-12-18 19:10 | NUR ---
GAVE REPORT TO RENÉE. PATIENT ENDORSED IN STABLE CONDITION.
--- NOTE | 2018-12-18 19:11 | NUR ---
RECEIVED BEDSIDE REPORT FROM DAY SHIFT NURSE CASSI RN, PT STABLE, NO DISTRESS NOTED, IV TO L FA 20G PATENT, INTACT, INFUSING NS @ 60ML/HR, INFUSING WELL, PT ON ROOM AIR, NO SOB, PT STATED HAVING NO PAIN AT THIS MOMENT, INITIAL ASSESSMENT DONE, ALL SAFETY PRECAUTION MET, CALL LIGHT WITHIN REACH, WILL CONTINUE TO MONITOR.
[2018-12-18 20:00] VITALS: BP 156/84
[2018-12-18] MEDS: INSULIN LISPRO SLIDING SCALE 100 UNITS/ML VIAL SUBQ PRN (21:37)
--- NOTE | 2018-12-18 21:37 | NUR ---
CHECKED PT BLOOD SUGAR 196, INSULIN PER PROTOCOL ADMINISTERED, PT TOLERATED WELL, NO DISTRESS NOTED, CALL LIGHT WITHIN REACH, WILL CONTINUE TO MONITOR.
[2018-12-19] VITALS: BP 145/76
--- NOTE | 2018-12-19 00:10 | NUR ---
CHECKED ON PT, PT SLEEPING, V/S TAKEN, WITHIN PT BASELINE, CALL LIGHT WITHIN REACH, WILL CONTINUE TO MONITOR.
--- NOTE | 2018-12-19 02:07 | NUR ---
PT SLEEPING, NO DISTRESS NOTED, CALL LIGHT WITHIN REACH, WILL CONTINUE TO MONITOR,.
[2018-12-19] MEDS: NACL 0.9% 1,000 ML IV SCH (03:10)
[2018-12-19 04:00] VITALS: BP 144/75
--- NOTE | 2018-12-19 04:14 | NUR ---
CHECKED ON PT, PT SLEEPING, NO DISTRESS NOTED, V/S TAKEN, WITHIN PT BASELINE, CALL LIGHT WITHIN REACH, WILL CONTINUE TO MONITOR.
[2018-12-19] MEDS: BLOOD GLUCOSE MONITORING 1 DEV DEV FS SCH ×4 (05:46→20:31)
[2018-12-19] MEDS: HYDROcodone/APAP 5/325 MG 1 TAB TAB PO PRN ×2 (06:01→20:22)
[2018-12-19] MEDS ORDERED: PNEUMOCOCCAL VACCINE 23 MCG/0.5 ML VIAL IMVAC SCH (06:25)
[2018-12-19 06:40] LABS: BASOPHILS % (AUTO) 0.4 % (0.0-2.0); EOSINOPHILS # (AUTO) 0.1 K/uL (0-0.4); EOSINOPHILS % (AUTO) 1.9 % (0.0-4.0); HEMATOCRIT 31.2 % (36-48); HEMOGLOBIN 10.4 g/dL (12.0-16.0); LYMPHOCYTES # (AUTO) 2.5 K/uL (2.5-16.5); LYMPHOCYTES % (AUTO) 33.1 % (20.5-51.1); MEAN CORPUSCULAR HEMOGLOBIN 27 pg (27-31); MEAN CORPUSCULAR HGB CONC 33 g/dL (33-37); MEAN CORPUSCULAR VOLUME 82.1 fL (80-94); MONOCYTES # (AUTO) 0.4 K/uL (0.8-1.0); MONOCYTES % (AUTO) 5.5 % (1.7-9.3); NEUTROPHILS # (AUTO) 4.5 K/uL (1.8-7.7); NEUTROPHILS % (AUTO) 59.1 % (42.2-75.2); PLATELET COUNT (AUTO) 312 K/uL (140-450); RED CELL DISTRIBUTION WIDTH 13.8 % (11.6-13.7); WHITE BLOOD COUNT (AUTO) 7.5 K/uL (4.8-10.8)
[2018-12-19 06:51] LABS: CHOL/HDL RATIO 6.2 (1-4.5); MAGNESIUM 1.7 mg/dL (1.8-2.4)
[2018-12-19 06:52] LABS: ANION GAP 9.9 (8-16); CARBON DIOXIDE 28.9 mmol/L (21-32); CREATININE 1.8 mg/dL (0.6-1.3); POTASSIUM 3.8 mmol/L (3.5-5.1)
--- NOTE | 2018-12-19 07:22 | NUR ---
ENDORSED PT TO DAY SHIFT NURSE GRISELDA LINTON, PT STABLE, NO DISTRESS NOTED, CALL LIGHT WITHIN REACH, WILL CONTINUE TO MONITOR.
--- NOTE | 2018-12-19 07:30 | NUR ---
RECEIVED PT FROM WOOD PANEL INSPECTOR NURSE, RENÉE, PT IS AWAKE AND LYING ON THE BED WITH SIDE RAILS UP AND CALL LIGHT WITHIN REACH, PT HAS AN IV LINE ON THE RT FA G. 22 INTACT WITH NS AT 60ML/HR INFUSING, PT HAS A WALKER ON THE BEDSIDE AND USED FOR AMBULATION. PT HAS A DIABETIC ULCER NOTED ON THE LEFT FOOT. PT DENIES PAIN ANO SOB NOTED. WILL CONTINUE TO MONITOR PT.
[2018-12-19 08:00] VITALS: BP 154/86
--- NOTE | 2018-12-19 08:00 | NUR ---
PT IS AWAKE AND VITAL SIGNS TAKEN AND IS WITHIN NORMAL LIMIT, NO SIGN OF DISTRESS NOTED AND WILL CONTINUE TO MONITOR PT.
[2018-12-19 08:14] LABS: T4 (THYROXINE) 7.8 ug/dL (4.5-12.0)
--- NOTE | 2018-12-19 08:37 | NUR ---
PATIENT HAS BEEN SCREENED AND CATEGORIZED MODERATE NUTRITION RISK. PATIENT WILL BE SEEN WITHIN 3-5 DAYS OF ADMISSION. 12/21/18DHARMESH SAUCEDO RD
--- NOTE | 2018-12-19 11:24 | NUR ---
WOUND CARE EVALUATION NOTE: REASON FOR EVALUATION: LEFT FOOT WOUND SKIN ASSESSMENT DONE ON THIS 68 Y/O FEMALE PATIENT TO [facility], WITH INITIAL DIAGNOSIS OF DIZZINESS X 3 DAYS. PT IS AAX4 DURING ASSESSMENT. PAST MEDICAL HX: DM, HTN, HLD AND PER PT. HAS HX OF DIABETIC ULCER TO LEFT FOOT AND FOLLOW UP WITH A PODIATRY WITH HX OF DEBRIDEMENT TO LEFT FOOT ABOUT A MONTH AGO. PER PT. HER NEXT PODIATRY APPOINTMENT WILL BE ON 12/28/2018. PT. AMBULATED TO WITH 4WW, ABLE TO TURN AND REPOSITION . WOUND CARE PLAN DISCUSSED WITH PRIMARY RN AND PT. PT VERBALIZES UNDERSTANDING. PER PT. SHE AND HER DAUGHTER ARE ABLE TO DO THE WOUND CARE AT HOME. INTEGUMENTARY: -LEFT MEDIAL FOOT 1ST METATARSAL DIABETIC ULCER UN-STAGEABLE 2.5X2CM 100% BROWN ESCHAR, ROBERTH WOUND PALE PINK AND INTACT, NO PAIN -BLE MULTIPLE PIN POINTS OLD DRY SCABS RECOMMENDATIONS: -APPLY SOAKED BETADINE SOLUTION TO LEFT MEDIAL FOOT 1ST METATARSAL AND COVER WITH DRY DRESSING QD AND PRN IF SOILING. -CONTINUE TO FOLLOW PODIATRY OUT PATIENT. -OFFLOAD BILATERAL HEELS BY PLACING PILLOWS UNDER CALVES AT ALL TIMES, UNLESS OTHERWISE CONTRAINDICATED RECOMMENDATIONS DISCUSSED WITH PRIMARY RN. WILL FOLLOW UP PATIENT Q 7 -10 DAYS AND PRN. PLEASE CONTACT WOUND CARE NURSE FOR ANY QUESTIONS AND CHANGES IN SKIN CONDITION.
--- NOTE | 2018-12-19 11:25 | NUR ---
SKIN ASSESSMENT DONE TO PT BY WOUND CARE NURSE AND PT SHOWS NO SIGN OF PAIN AND DISTRESS, WILL MONITOR PT.
--- NOTE | 2018-12-19 11:30 | NUR ---
PT IS AWAKE AND VITAL SIGNS TAKEN AND IS WITHIN NORMAL LIMIT, BLOOD GLUCOSE CHECK DONE AND RESULT IS 234 AND INSULIN 4 UNITS WAS GIVEN AND PT TOLERATED IT. WILL MONITOR PT.
[2018-12-19] MEDS ORDERED: LORazepam 1 MG TAB PO PRN (11:55)
[2018-12-19 12:00] VITALS: BP 170/82
[2018-12-19] MEDS ORDERED: hydrALAZINE 20 MG/ML VIAL IVP PRN (12:00)
[2018-12-19] MEDS ORDERED: NIFEdipine 30 MG TABER PO SCH ×2 (12:01→19:00)
[2018-12-19] MEDS ORDERED: PREDNISOL/SULFACE 0.23%-10% OP SOL. 5 ML BTL OP SCH (13:00)
[2018-12-19] MEDS: INSULIN LISPRO SLIDING SCALE 100 UNITS/ML VIAL SUBQ PRN ×3 (13:17→20:30)
[2018-12-19 16:00] VITALS: BP 142/71
--- NOTE | 2018-12-19 17:15 | NUR ---
PT IS AWAKE AND VITAL SIGNS TAKEN AND IS WITHIN NORMAL LIMIT, ORAL MEDICATIONS WERE GIVEN AND BLOOD GLUCOSE CHECK DONE AND RESULT IS 228, INSULIN 4 UNITS WAS GIVEN ON THE RT UA AND PT TOLERATED IT. NO SIGN OF DISTRESS NOTED AND WILL MONITOR PT.
[2018-12-19] MEDS: glipiZIDE 5 MG TAB PO SCH (17:16)
--- NOTE | 2018-12-19 17:22 | NUR ---
PT IS AWAKE AND VITAL SIGNS CHECKED AND BP RESULT IS 142/71, BLOOD GLUCOSE CHECK DONE AND RESULT IS 228 AND 4 UNITS INSULIN WAS GIVEN ON THE RT UA, PT TOLERATED IT, PT DENIES PAIN AND NO SIGN OF DISTRESS NOTED. WILL MONITOR PT.
--- NOTE | 2018-12-19 19:20 | NUR ---
ENDORSED PT TO BASIN TENDER NURSEAARON FOR CONTINUITY OF CARE, PT IS AWAKE AND STABLE AT THIS TIME TALKING TO FAMILY ON THE BEDSIDE.
--- NOTE | 2018-12-19 19:21 | NUR ---
RECEIVED BEDSIDE REPORT FROM GRISELDA LINTON. PT IS AAO X 4. RESPIRATIONS ARE EQUAL AND UNLABORED. HAS IV ON R FA 20G NS IS INFUSING AT 60ML/H. PT USES WALKER WITH ASSIST. PT WITH L FOOT DM ULCER. WOUND CARE NURSE SAW PT TODAY. APPLIED BETADINE AND DRESSING. DRESSING SEEN WITH MINIMAL DRAINAGE. WILL CONTINUE TO MONITOR. FAMILY IS AT BEDSIDE. SAFETY MEASURES ARE IN PLACE. WILL CONTINUE TO MONITOR.
[2018-12-19 20:00] VITALS: BP 146/74
[2018-12-19] MEDS ORDERED: MAGNESIUM OXIDE 400 MG TAB PO SCH (20:00)
--- NOTE | 2018-12-19 20:31 | NUR ---
VITAL SIGNS ARE STABLE. PTS MG LEVEL LOW:1.7 MAG OX ADMINISTERED. PT STATES HAS PAIN 6/10 ON L FOOT ULCER. NORCO GIVEN. CALL LIGHT WITHIN REACH. WILL CONTINUE TO MONITOR.
[2018-12-19] MEDS ORDERED: DOCUSATE SODIUM 100 MG GELCAP PO SCH (21:00)
--- NOTE | 2018-12-19 21:00 | NUR ---
PT SHOWING FIRST DEGREE AV BLOCK ON TELE MONITOR. DR GUZMAN MADE AWARE. DR ORDERED EKG TO EVALUATE. WILL CONTINUE TO MONITOR.
[2018-12-20] VITALS: BP 127/68
--- NOTE | 2018-12-20 00:10 | NUR ---
VITAL SIGNS ARE STABLE.RESPIRATIONS ARE EQUAL AND UNLABORED. ASSISTED PT TO BATHROOM. PT USED HER WALKER. NO S/S OF DISTRESS. ALL NEEDS MET AT THIS TIME. WILL CONTINUE TO MONITOR.
--- NOTE | 2018-12-20 01:32 | NUR ---
PT IS SLEEPING. NO S/S OF DISTRESS NOTED. CALL LIGHT WITHIN REACH.
--- NOTE | 2018-12-20 03:03 | NUR ---
PT SLEEPING. NO S/S OF DISTRESS. CALL LIGHT WITHIN REACH.
[2018-12-20] MEDS: NACL 0.9% 1,000 ML IV SCH (03:05)
--- NOTE | 2018-12-20 03:20 | NUR ---
GAVE BEDSIDE REPORT TO RAUL LINTON. PT ENDORSED IN STABLE CONDITION.
--- NOTE | 2018-12-20 03:21 | NUR ---
RECEIVED REPORT FROM ROYER MICHELE FOR CONTINUITY OF CARE. PT IS A/OX4, ON ROOM AIR. PT ABLE TO MAKE NEEDS KNOWN, AND ABLE TO FOLLOW COMMANDS. PT AMBULATES WITH ASSISTANCE. PT HAS LEFT FOOT DIABETIC ULCER, SEE WOUND ASSESSMENT. PT HAS A 20G IV TO RIGHT FOREARM, ASYMPTOMATIC AND INTACT. VITAL SIGNS WITHIN NORMAL LIMITS. PT STABLE, DENIES PAIN, NO SIGNS OF DISTRESS NOTED AT THIS TIME. PT POSITIONED FOR COMFORT. BED IN LOWEST POSITION, BED ALARM ON. WILL CONTINUE TO MONITOR.
[2018-12-20 04:00] VITALS: BP 125/68
[2018-12-20] MEDS: BLOOD GLUCOSE MONITORING 1 DEV DEV FS SCH (06:13)
[2018-12-20] MEDS: INSULIN LISPRO SLIDING SCALE 100 UNITS/ML VIAL SUBQ PRN (06:16)
[2018-12-20] MEDS: glipiZIDE 5 MG TAB PO SCH (06:30)
--- NOTE | 2018-12-20 06:31 | NUR ---
ADMINISTERED SCHEDULED MEDICATIONS, PT TOLERATED WELL. 2 UNITS OF HUMALOG GIVEN FOR GLUCOSE LEVEL 183.
[2018-12-20 06:40] LABS: ANION GAP 10.4 (8-16); CARBON DIOXIDE 26.6 mmol/L (21-32); CREATININE 1.8 mg/dL (0.6-1.3)
[2018-12-20 06:41] LABS: MAGNESIUM 1.9 mg/dL (1.8-2.4); PHOSPHORUS 4.1 mg/dL (2.5-4.9)
[2018-12-20 06:49] LABS: BASOPHILS % (AUTO) 0.5 % (0.0-2.0); EOSINOPHILS # (AUTO) 0.2 K/uL (0-0.4); EOSINOPHILS % (AUTO) 2.6 % (0.0-4.0); HEMATOCRIT 28.1 % (36-48); HEMOGLOBIN 9.5 g/dL (12.0-16.0); LYMPHOCYTES # (AUTO) 2.2 K/uL (2.5-16.5); MEAN CORPUSCULAR HEMOGLOBIN 28 pg (27-31); MEAN CORPUSCULAR HGB CONC 34 g/dL (33-37); MEAN CORPUSCULAR VOLUME 82.5 fL (80-94); MONOCYTES # (AUTO) 0.5 K/uL (0.8-1.0); MONOCYTES % (AUTO) 6.2 % (1.7-9.3); NEUTROPHILS # (AUTO) 5.2 K/uL (1.8-7.7); NEUTROPHILS % (AUTO) 63.7 % (42.2-75.2); PLATELET COUNT (AUTO) 298 K/uL (140-450); RED BLOOD CELL COUNT(AUTO) 3.41 MIL/uL (4.20-5.40); RED CELL DISTRIBUTION WIDTH 13.7 % (11.6-13.7); WHITE BLOOD COUNT (AUTO) 8.2 K/uL (4.8-10.8)
--- NOTE | 2018-12-20 07:29 | NUR ---
ENDORSED PT TO DAY SHIFT RN CASSI AT BEDSIDE, FOR CONTINUITY OF CARE. PT IN STABLE CONDITION.
--- NOTE | 2018-12-20 07:30 | NUR ---
RECEIVED BEDSIDE REPORT FROM LOG BUYER NURSE. PATIENT ON TELE MONITOR. PATIENT AAOX4. ON ROOM AIR, NO DISTRESS NOTED. L MEDIAL FOOT DIABETIC ULCER DRESSING INTACT. PATIENT AMBULATORY W WALKER. PATIENT CONTINENT. IV ON R FA 20 G INFUSING NS AT 60, IV ASYMPTOMATIC, PATENT AND INTACT. BED IN LOW POSITION, CALL LIGHT WITHIN REACH, SIDE RAILS X2 UP. WILL CONTINUE TO MONITOR.
[2018-12-20 08:00] VITALS: BP 125/64
[2018-12-20] MEDS ORDERED: NIFEdipine 30 MG TABER PO SCH ×2 (09:00)
[2018-12-20] MEDS ORDERED: hydrALAZINE 10 MG TAB PO SCH (09:00)
[2018-12-20] MEDS ORDERED: ASPIRIN 81 MG TAB.CHEW PO SCH (09:00)
[2018-12-20] MEDS ORDERED: ATORVASTATIN 80 MG TAB PO SCH (09:00)
[2018-12-20] MEDS ORDERED: LISINOPRIL 20 MG TAB PO SCH (09:00)
--- NOTE | 2018-12-20 09:21 | NUR ---
FAMILY AT BEDSIDE. ADMINISTERED SCHEDULED MEDS. PATIENT TOLERATED WELL. WILL CONTINUE TO MONITOR. PATIENT STATED SHE NEEDS TO BE DISCHARGED BY 11 AM BECAUSE SHE HAS BUSINESS TO TAKE CARE OF.
[2018-12-20] MEDS ORDERED: ORE25 PO (10:40)
[2018-12-20 12:00] VITALS: BP 151/67
[2018-12-20] MEDS ORDERED: INSU100S22 SUBQ (12:01)
--- NOTE | 2018-12-20 12:26 | NUR ---
PATIENT EATING LUNCH. ON ROOM AIR, NO DISTRESS NOTED AT THIS TIME. ASKED PATIENT IF SHE STILL WANTED PNA VACCINE, PATIENT REFUSED. EDUCATED PATIENT ON IMPORTANCE OF VACCINE, BUT STILL REFUSED.
--- NOTE | 2018-12-20 13:25 | NUR ---
PROVIDED PATIENT WITH DISCHARGE INSTRUCTIONS. INSTRUCTED PATIENT TO FOLLOW UP WITH PCP WITHIN 5-7 DAYS. EDUCATED TO RETURN TO NEAREST ER WHEN EXPERIENCING SOB, FEVER, PAIN ETC. PROVIDED PATIENT WITH LIST OF NEW MEDICATIONS AND TO CONTINUE HOME MEDS. PRESCRIPTIONS ELECTRONICALLY SENT TO PHARMACY. ADVISED PATIENT TO ASSESS FEET DAILY FOR HER DIABETES AND TO FOLLOW UP WITH CLIENT RESOLUTION SPECIALIST. PHOTO TAKEN OF L MEDIAL DIABETIC FOOT ULCER. FLU UP TO DATE, REFUSED PNA VACCINE. REMOVED WRIST BANDS, TELE MONITOR, AND IV, IV TIP INTACT. PATIENT WITH ALL BELONGINGS TAKEN HOME INCLUDING WALKER. FAMILY AT BEDSIDE. ANSWERED ALL QUESTIONS AND CONCERNS. PATIENT VERBALIZED UNDERSTANDING.
== END 2018-12-20 13:25 | disposition home or self-care (01) | DRG 73 ==
LOC: MED 12:30 → MTU 15:36
PROVIDERS: ADMIT General Practice; ATTEND General Practice
DX: G90.8 Other disorders of autonomic nervous system (principal); N17.0 Acute kidney failure with tubular necrosis; N18.4 Chronic kidney disease, stage 4 (severe); E11.65 Type 2 diabetes mellitus with hyperglycemia; E83.42 Hypomagnesemia; Z79.899 Other long term (current) drug therapy; I12.9 Hypertensive chronic kidney disease with stage 1 through stage 4 chronic kidney disease, or unspecified chronic kidney disease; E11.22 Type 2 diabetes mellitus with diabetic chronic kidney disease; M19.90 Unspecified osteoarthritis, unspecified site; J45.909 Unspecified asthma, uncomplicated; E11.621 Type 2 diabetes mellitus with foot ulcer; L97.529 Non-pressure chronic ulcer of other part of left foot with unspecified severity; Z79.84 Long term (current) use of oral hypoglycemic drugs
CPT/HCPCS: 36415; 70450; 71045; 80048; 80053; 81001; 82140; 82150; 82948; 83036; 83690; 83735; 83880; 84100; 84436; 84443; 84484; 85025; 85610; 85730; 87081; 90732; 93005; 93880; 93925; 93970; 96374; 99285; J1644; J1815; J2405; J7030; J8597; Q0092

== ENCOUNTER 2021-02-06 07:57 | Inpatient (IN) | payer OTHER, SELFPAY ==
[~2021-02-06] VITALS: Ht 172.7 cm; Wt 86.2 kg
[2021-02-06] VITALS (16 sets, daily range): BP systolic 130–166; BP diastolic 57–84
[~2021-02-06 07:57] MED LIST changes: -BACTO TP; +INSU100S22 SUBQ; +NIFE-184 PO; -NIFE30TE98 PO
--- NOTE | 2021-02-06 08:04 | NUR ---
Patient transferred to bed 10 via wheelchair by tech. RN evaluating the patient at bedside.
--- NOTE | 2021-02-06 08:07 | NUR ---
Dr. Beach is evaluating the patient at bedside.
--- NOTE | 2021-02-06 08:16 | NUR ---
RT AT BEDSIDE.
[2021-02-06] MEDS ORDERED: ATI.5 PO (08:24)
[2021-02-06] MEDS ORDERED: LISI-487 PO (08:24)
[2021-02-06] MEDS ORDERED: ASPI-1822 PO (08:24)
[2021-02-06] MEDS ORDERED: METO-251 PO (08:24)
[2021-02-06] MEDS ORDERED: SULF-59 PO (08:24)
[2021-02-06] MEDS ORDERED: GABA100C PO (08:24)
[2021-02-06] MEDS ORDERED: AMLO10TA PO (08:24)
[2021-02-06] MEDS ORDERED: HYDR-5191 PO (08:24)
[2021-02-06] MEDS ORDERED: ICOS1SGL PO (08:24)
[2021-02-06] MEDS ORDERED: LORA10TA19 PO (08:24)
[2021-02-06] MEDS ORDERED: GLIP5TER PO (08:24)
[2021-02-06] MEDS ORDERED: ALBU0.0912 INH (08:26)
--- NOTE | 2021-02-06 08:38 | NUR ---
BIB FAMILY C/O SOB STARTING THIS AM. PT SPO2 73% ON ROOM AIR HX HYPERLIPIDEMIA, HTN, DM
--- NOTE | 2021-02-06 08:41 | NUR ---
PT CAME TO ED SOB AND IN DISTRESS. PLACED PT ON BIPAP WITH SETTINGS 12/6 RR 16 FIO2 100%. MD MARCANO AWARE OF SETTINGS AND AGREES. TITRATED FIO2 TO 40% SPO2 NOW IS 98% . PT VERBALIZED FEELING BETTER WITH BIPAP. BREATH SOUNDS CLEAR. PT HAS MEDIUM MASK WITH SKIN GEL UNDERNEATH. SKIN INTACT. BIPAP CONNECTED TO RED OUTLET. ALARMS AUDIBLE. WILL CONTINUE TO MONITOR.
[2021-02-06 08:45] LABS: BASOPHILS % (AUTO) 0.2 % (0.0-2.0); HEMATOCRIT 24.3 % (36-48); HEMOGLOBIN 7.9 g/dL (12.0-16.0); LYMPHOCYTES # (AUTO) 0.5 K/uL (2.5-16.5); LYMPHOCYTES % (AUTO) 5.8 % (20.5-51.1); MEAN CORPUSCULAR HEMOGLOBIN 28 pg (27-31); MEAN CORPUSCULAR HGB CONC 33 g/dL (33-37); MEAN CORPUSCULAR VOLUME 85.7 fL (80-94); MONOCYTES # (AUTO) 0.1 K/uL (0.8-1.0); MONOCYTES % (AUTO) 1.6 % (1.7-9.3); NEUTROPHILS # (AUTO) 7.6 K/uL (1.8-7.7); NEUTROPHILS % (AUTO) 92.4 % (42.2-75.2); PLATELET COUNT (AUTO) 166 K/uL (140-450); RED BLOOD CELL COUNT(AUTO) 2.83 MIL/uL (4.20-5.40); RED CELL DISTRIBUTION WIDTH 13.8 % (11.6-13.7); WHITE BLOOD COUNT (AUTO) 8.2 K/uL (4.8-10.8)
[2021-02-06] MEDS ORDERED: DEXAMETHASONE 4 MG/ML VIAL IVP ONE (08:50)
[2021-02-06 09:06] LABS: ALBUMIN 3.4 g/dL (3.4-5.0); ANION GAP 21.7 (8-16); CARBON DIOXIDE 12.6 mmol/L (21-32); POTASSIUM 5.3 mmol/L (3.5-5.1); TOTAL BILIRUBIN 0.6 mg/dL (0.0-1.0)
--- NOTE | 2021-02-06 09:24 | NUR ---
Dr. Beach is evaluating the patient at bedside.
[2021-02-06] MEDS ORDERED: AZITHROMYCIN 500 MG in DEXTROSE 5% 250 ML IV ONE (09:30)
[2021-02-06] MEDS ORDERED: ASPIRIN 325 MG TAB PO ONE (09:30)
[2021-02-06] MEDS ORDERED: cefTRIAXone 1,000 MG VIAL ONE (09:39)
--- NOTE | 2021-02-06 09:55 | NUR ---
Dr. Cardenas is evaluating the patient at bedside.
[2021-02-06] MEDS ORDERED: AZITHROMYCIN 500 MG INJ VIAL IV ONE (09:57)
[2021-02-06] MEDS ORDERED: DEXT 5% /NACL 0.9% 1,000 ML IV SCH (10:00)
[2021-02-06] MEDS ORDERED: HYDROcodone/APAP 7.5/325 MG 1 TAB PO PRN (10:00)
[2021-02-06] MEDS ORDERED: ONDANSETRON 4 MG/2 ML VIAL IM/IVP PRN (10:00)
[2021-02-06] MEDS ORDERED: DOCUSATE SODIUM 100 MG GELCAP PO PRN (10:00)
[2021-02-06] MEDS ORDERED: guaiFENesin DM 200/20 MG-10 ML 10 ML UDC PO PRN (10:00)
[2021-02-06] MEDS ORDERED: ZOLPIDEM 5 MG TAB PO PRN (10:00)
[2021-02-06] MEDS ORDERED: ACETAMINOPHEN 325 MG TAB PO PRN (10:00)
[2021-02-06] MEDS ORDERED: POTASSIUM CHLORIDE 40 MEQ, LIDOCAINE MPF 1% 25 MG in NACL 0.9% 250 ML IV PRN ×7 (10:00→11:05)
[2021-02-06] MEDS ORDERED: ALBUTEROL HFA MDI 90 MCG/ACTUATION 8 GM INH PRN (10:05)
[2021-02-06] MEDS ORDERED: ALBUTEROL SULFATE/IPRATROPIU 3 ML SOL IH PRN (10:05)
[2021-02-06] MEDS ORDERED: DEXTROSE 50% 50 ML SYR IVP PRN ×2 (10:10→11:05)
[2021-02-06] MEDS ORDERED: INSULIN LISPRO SLIDING SCALE 100 UNITS/ML VIAL SUBQ PRN (10:10)
[2021-02-06 10:26] LABS: PROTHROMBIN TIME 10.4 secs (10.8-13.4)
[2021-02-06] MEDS ORDERED: FUROSEMIDE 100 MG/10 ML VIAL IV SCH (10:30)
[2021-02-06 10:32] LABS: CHOL/HDL RATIO 3.9 (1-4.5); FREE T4 (FREE THYROXINE) 1.08 ng/dL (0.76-1.46); PHOSPHORUS 4.8 mg/dL (2.5-4.9); THYROID STIMULATING HORMONE 1.02 uIU/mL (0.34-3.74)
--- NOTE | 2021-02-06 10:32 | NUR ---
Patient will be admitted to care of Virginia Cardenas DO. Admited to ICU. Will go to room 8. Belongings list completed. Report to ROYER Mike.
--- NOTE | 2021-02-06 10:37 | NUR ---
RECEIVED REPORT FROM ED NURSE. PATIENT BROUGHT IN VIA GURNEY. ON BIPAP RR 12, 40% FIO2, 97% SPO2 WITH LABORED BREATHING AND ACCESSORY MUSCLE USE. R AC 20 G SL. SKIN INTACT. TAR POT MAN IN PLACE. SAFETY MEASURES IN PLACE. ENHANCED DROPLET PRECAUTIONS FOR COVID 19.
--- NOTE | 2021-02-06 10:37 | NUR ---
PT TRANSFERRED FROM ED TO ICU ON BIPAP WITH NO INCIDENT. BIPAP CONNECTED TO RED OUTLET, ALARMS AUDIBLE. PAGED MD GARCIA TO VERIFY HHN ORDER, WAITING FOR CALL BACK. WILL CONTINUE TO MONITOR.
--- NOTE | 2021-02-06 11:01 | NUR ---
ADMINISTERED SCHEDULED MEDS PER MD ORDER. MED EDUCATION PROVIDED, PATIENT VERBALIZES UNDERSTANDING. IV FLUID STARTED WITH ALL NEW TUBING. RIB CUTTER IN PLACE. SAFETY MEASURES IN PLACE.
[2021-02-06] MEDS ORDERED: INSULIN REGULAR, HUMAN 100 UNIT in NACL 0.9% 100 ML IV SCH ×2 (11:05)
[2021-02-06] MEDS ORDERED: INSULIN REGULAR, HUMAN 100 UNIT/ML VIAL IVP SCH (11:30)
[2021-02-06] MEDS ORDERED: BLOOD GLUCOSE MONITORING 1 DEV DEV FS SCH (11:30)
--- NOTE | 2021-02-06 11:41 | NUR ---
DC PLANNIN YRS OLD FEMALE PATIENT WAS ADMITTED FROM HOME WITH A DX OF COVID, RENAL FAILURE BIPAP AND NSTEMI. PT HAS A HX OF DM, HTN, BKA AND ASTHMA. CXR SHOWED DIFFUSED BILATERAL PULMONARY NODULES/INFILTRATES. RAPID COVID TEST POSITIVE. BLOOD CULTURE PENDING. ON BIPAP FIO2 100% SATING 96%. ORDERED CONVALESCENT PLASMA ,STARTED COVID PROTOCOL, IVF, IV ABX AZITHROMYCIN AND ROCEPHIN CONSULTED WITH CARDIO, PULMO,NEPHRO AND ID. DC PLAN PER PT RESPOND TO THE TREATMENT. CM TO FOLLOW. Addendum: 02/14/21 at 1511 by Zari Soni RN DC PLANNING: CALLED DR ARNOLD SPEECH AND HEARING DIRECTOR DISCUSSED THE DC PLAN IF PT NEEDS PERMANENT DIALYSIS OR TEMPORARY . PER DR ARNOLD IT'S HARD TO TELL NOW FOR THE KIDNEY TO RECOVER. HOWEVER PT NEEDS TUNNEL CATH WILL ORDER IT ON WEDNESDAY AND TO PLACE HER FOR OUT PATIENT DIALYSIS ,CAN GO TO [facility]. CM TO FOLLOW
[2021-02-06] MEDS: BLOOD GLUCOSE MONITORING 1 DEV DEV FS SCH ×13 (12:01→23:05)
[2021-02-06] MEDS: NACL 0.9% 1,000 ML IV SCH ×2 (12:01→22:34)
[2021-02-06 12:13] LABS: PHOSPHORUS 5.2 mg/dL (2.5-4.9)
[2021-02-06 12:26] LABS: ANION GAP 21.6 (8-16); CARBON DIOXIDE 12.7 mmol/L (21-32)
--- NOTE | 2021-02-06 12:39 | NUR ---
ABG, RR PUNCTURE ON BIPAP 12 07/15 40% pH 7.32 pCO2 22.0 pO2 82.2 HCO3 11.1 BE -13.5 Addendum: 02/06/21 at 1[address] DR[address] GARCIA CALLED, AWAITING CALL BACK
[2021-02-06 12:42] LABS: POTASSIUM 6.3 mmol/L (3.5-5.1)
--- NOTE | 2021-02-06 12:43 | NUR ---
ATTEMPTED TO SEE PATIENT FOR PHYSICAL THERAPY EVALUATION HOWEVER CHARGE NURSE REPORTED HOLD FOR ALL THERAPY DUE TO PLACEMENT OF BIPAP AT THIS TIME. WILL FOLLOW UP TOMORROW IF PATIENT APPROPRIATE.
--- NOTE | 2021-02-06 12:50 | NUR ---
TALK TO DR GARCIA INFORMED HIM LAB RESULT GLUCOSE 500 K 6.3 ,SO HE IS AWARE AND PT ALREADY RECEIVED INSULIN IVP AND INSULIN IV DRIP. SHE WILL BE OK.
--- NOTE | 2021-02-06 13:14 | NUR ---
CALL PLACE TO PICC RN LEAVE MESSAGE IN ANSWERING MACHINE, PT FOR PICC INSERTION.
[2021-02-06] MEDS: hydrALAZINE 25 MG TAB PO SCH ×2 (13:28→17:28)
[2021-02-06] MEDS: ALBUTEROL SULFATE/IPRATROPIU 3 ML SOL IH SCH ×2 (13:28→19:39)
[2021-02-06 16:36] LABS: ANION GAP 21.1 (8-16); CARBON DIOXIDE 13.7 mmol/L (21-32); MAGNESIUM 2.2 mg/dL (1.8-2.4); PHOSPHORUS 5.1 mg/dL (2.5-4.9); POTASSIUM 5.8 mmol/L (3.5-5.1)
[2021-02-06 16:39] LABS: CREATININE 4.9 mg/dL (0.6-1.3)
[2021-02-06 17:20] LABS: CKMB RELATIVE INDEX 1.1 (0.0-2.5); CREATINE KINASE MB 9.6 ng/mL (0-3.6)
--- NOTE | 2021-02-06 19:24 | NUR ---
ENDORSED PATIENT TO WAISTBAND SETTER LOCKSTITCH NURSE. PATIENT STABLE AT THIS TIME.
--- NOTE | 2021-02-06 19:30 | NUR ---
RECEIVED PT IN HIGH FOWLERS. DENIES PAIN UPON QUESTIONING. A/O X4. PUPILS 3MM, PERRL. BIPAP IN PLACE WITH FIO2 @ 35%RT FA PERIPHERAL IV IN PLACE, INFUSING NS @ 125 ML/H. REGULAR INSULIN @ 0.1 U/KG/H. LUNGS RHONCHI THROUGHOUT. +S1, S2 NOTED. SR-ST ON MONITOR. BOWEL SOUNDS ACTIVE X4. NO ABD DISTENTION/TENDERNESS NOTED. NPO EXCEPT MEDS AT THIS TIME. ABLE TO USE BEDPAN WITH ASSISTANCE AND FREQUENT EPISODES OF INCONTINENCE. LEFT BKA NOTED. SKIN WARM, DRY, AND INTACT. BED LOW AND LOCKED WITH CALL LIGHT IN EASY REACH. WILL CONTINUE TO MONITOR FOR CHANGES.
--- NOTE | 2021-02-06 19:49 | NUR ---
PT SEEN AND ASSESSED. PT IS AWAKE AND ALERT. FOUND PT ON BiPAP SETTINGS IPAP 10, EPAP 5, BACK UP RR 10, FiO2 30% WITH SPO2 OF 98%. MACHINE PLUGGED IN RED OUTLET, ALARM SET AND FUNCTIONING, AMBU BAG AT BEDSIDE. AUSCULTATION REVEALS CLEAR BILATERAL BREATH SOUNDS. NO NOTED RESPIRATORY DISTRESS AT THIS TIME. HHN TX GIVEN, AND PT TOLERATED TX WELL WITH NO ADVERSE REACTION. WILL CONTINUE TO MONITOR PT.
--- NOTE | 2021-02-06 19:52 | NUR ---
TITRATED FiO2 FROM 35% TO 30%. SPO2 95%. PT TOLERATING WELL AT THIS TIME. RN NOTIFIED. WILL CONTINUE TO MONITOR PT.
[2021-02-06 20:31] LABS: CREATININE 4.9 mg/dL (0.6-1.3)
[2021-02-06 20:46] LABS: MAGNESIUM 2.2 mg/dL (1.8-2.4)
[2021-02-06] MEDS: METOPROLOL 50 MG TAB PO SCH (21:51)
[2021-02-07] VITALS (20 sets, daily range): BP systolic 96–172; BP diastolic 54–82
[2021-02-07] MEDS: BLOOD GLUCOSE MONITORING 1 DEV DEV FS SCH ×24 (00:07→23:05)
[2021-02-07 00:27] LABS: PHOSPHORUS 5.1 mg/dL (2.5-4.9)
[2021-02-07 00:32] LABS: ANION GAP 22.3 (8-16); POTASSIUM 5.3 mmol/L (3.5-5.1)
[2021-02-07] MEDS: ALBUTEROL SULFATE/IPRATROPIU 3 ML SOL IH SCH ×4 (00:34→19:24)
--- NOTE | 2021-02-07 00:41 | NUR ---
NO NOTED RESPIRATORY DISTRESS AT THIS TIME. HHN TX GIVEN, AND PT TOLERATED TX WELL WITH NO ADVERSE REACTION. WILL CONTINUE TO MONITOR PT.
--- NOTE | 2021-02-07 00:58 | NUR ---
VENOUS BLOOD RESULTS REPORTED TO DR. DUPONT. WILL CONTINUE TO MONITOR PT.
--- NOTE | 2021-02-07 01:07 | NUR ---
WEANED PT FROM BiPAP TO HIGH FLOW BUBBLE HUMIDIFIER AT 6L. SPO2 94%. NO NOTED RESPIRATORY DISTRESS AT THIS TIME. WILL CONTINUE TO MONITOR PT.
[2021-02-07 04:22] LABS: HEMOGLOBIN 7.7 g/dL (12.0-16.0); MONOCYTES # (AUTO) 0.2 K/uL (0.8-1.0)
[2021-02-07 05:16] LABS: ANION GAP 23.1 (8-16); CARBON DIOXIDE 11.8 mmol/L (21-32); POTASSIUM 4.9 mmol/L (3.5-5.1)
[2021-02-07 06:02] LABS: BASOPHILS % (AUTO) 0.2 % (0.0-2.0); HEMATOCRIT 23.8 % (36-48); LYMPHOCYTES # (AUTO) 0.8 K/uL (2.5-16.5); LYMPHOCYTES % (AUTO) 7.7 % (20.5-51.1); MEAN CORPUSCULAR HEMOGLOBIN 28 pg (27-31); MEAN CORPUSCULAR HGB CONC 33 g/dL (33-37); MONOCYTES % (AUTO) 1.7 % (1.7-9.3); NEUTROPHILS # (AUTO) 9.5 K/uL (1.8-7.7); NEUTROPHILS % (AUTO) 90.4 % (42.2-75.2); PLATELET COUNT (AUTO) 178 K/uL (140-450); RED BLOOD CELL COUNT(AUTO) 2.76 MIL/uL (4.20-5.40); RED CELL DISTRIBUTION WIDTH 13.7 % (11.6-13.7); WHITE BLOOD COUNT (AUTO) 10.5 K/uL (4.8-10.8)
[2021-02-07 06:04] LABS: CREATININE 4.7 mg/dL (0.6-1.3)
[2021-02-07] MEDS ORDERED: hydrALAZINE 20 MG/ML VIAL IVP PRN (06:50)
--- NOTE | 2021-02-07 06:50 | NUR ---
DR. GARCIA RETURNED THE CALL AFTER THE FOURTH TIME PAGING HIM; GOT NEW ORDER FOR THE HIGH BP MEDS AND UPDATED HIM ABOUT THE PATIENT'S OTHER MEDICAL CONDITION; WITH NEW ORDERS, CARRIED OUT.
[2021-02-07] MEDS ORDERED: hydrALAZINE 20 MG/ML VIAL ONE (06:56)
--- NOTE | 2021-02-07 07:20 | NUR ---
RECEIVED REPORT FROM NIGHTSHIFT NURSE. PT RESTING IN BED. ABLE TO MAKE NEEDS KNOWN. HIGH FLOW WITH BUBBLER IN PLACE AT 10L. NO SOB OR RESPIRATORY DISTRESS. ISIDRO PICC LINE IS CLEAN, DRY, AND INTACT, INFUSING NS @ 125 ML/H. REGULAR INSULIN @ 0.1 U/KG/H. NPO EXCEPT MEDS AT THIS TIME. SKIN WARM AND DRY TO TOUCH, LEFT BKA NOTED. PT WITH MCCLAIN DRAINING VIA GRAVITY. SAFETY MEASURES IN PLACE. WILL CONTINUE TO MONITOR
[2021-02-07 07:39] LABS: PHOSPHORUS 4.9 mg/dL (2.5-4.9)
[2021-02-07] MEDS: NACL 0.9% 1,000 ML IV SCH ×3 (07:39→17:47)
[2021-02-07 08:08] LABS: T4 (THYROXINE) 7.2 ug/dL (4.5-12.0)
[2021-02-07 08:26] LABS: ANION GAP 27.4 (8-16); CARBON DIOXIDE 9.5 mmol/L (21-32); MAGNESIUM 1.8 mg/dL (1.8-2.4); PHOSPHORUS 4.8 mg/dL (2.5-4.9); POTASSIUM 4.9 mmol/L (3.5-5.1)
[2021-02-07 08:30] LABS: CREATININE 4.5 mg/dL (0.6-1.3)
--- NOTE | 2021-02-07 08:30 | NUR ---
RECIEVED CALL FROM LAB, PT BICARB IS 9.5, GLUCOSE 493, CR 4.5. DR. GARCIA MADE AWARE. WILL CONTINUE TO MONITOR
--- NOTE | 2021-02-07 08:51 | NUR ---
PATIENT HAS BEEN SCREENED AND CATEGORIZED MODERATE NUTRITION RISK. PATIENT WILL BE SEEN WITHIN 3-5 DAYS OF ADMISSION. 02/08/21 02/10/[address] Addendum: 02/07/21 at [address] PATIENT WAS RE-SCREENED AND CATEGORIZED HIGH NUTRITIONAL RISK FOR DKA. PATIENT WILL BE SEEN WITHIN 1-2 DAYS OF ADMISSION. 02/07/[address]
[2021-02-07] MEDS ORDERED: AZITHROMYCIN 250 MG TAB PO SCH (09:00)
[2021-02-07] MEDS: PANTOPRAZOLE 40 MG INJ VIAL IVP SCH (09:11)
[2021-02-07] MEDS: METOPROLOL 50 MG TAB PO SCH ×2 (09:14→20:02)
[2021-02-07] MEDS: ZINC SULF 220 MG CAP PO SCH (09:14)
[2021-02-07] MEDS: ASCORBIC ACID 500 MG TAB PO SCH (09:15)
[2021-02-07] MEDS: ATORVASTATIN 80 MG TAB PO SCH (09:15)
--- NOTE | 2021-02-07 09:15 | NUR ---
ADMINISTERED SCHED MED PRESCRIBED PER MD ORDER. PT TOLERATED WELL. MEDICATION EDUCATION PERFORMED. PT VERBALIZED UNDERSTANDING. SAFETY MEASURES IN PLACE. WILL CONTINUE TO MONITOR
[2021-02-07] MEDS: ASPIRIN 81 MG TAB.CHEW PO SCH (09:16)
[2021-02-07] MEDS: amLODIPine 5 MG TAB PO SCH (09:16)
[2021-02-07] MEDS: hydrALAZINE 25 MG TAB PO SCH ×3 (09:17→16:24)
--- NOTE | 2021-02-07 10:29 | NUR ---
SOCIAL WORK NOTE: Patient's Orientation Unable To Assess Information Provided By ANDREEA PERRY - SON Comments SW WAS UNABLE TO MEET PATIENT AT BEDSIDE. SW COMPLETED ASSESSMENT WITH PATIENT'S SON. Flexographic Press Operator, Realtionship and Phone Number DAIANA HOPKINS SON [phone] ANDREEA PERRY SON [phone] Healthcare Power of Weaver Hand No Does Patient Have a POLST No Identifying Problems No Social Work Triggers Is A Social Work Consult Needed No Mandate Report Filed No Explanation Of Identifying Problems PATIENT IS A 70-YEAR-OLD FEMALE ADMITTED FOR COVID AND RENAL DISEASE. PATIENT HAS PMHX OF ASTHMA, DIABETES, AND HYPERTENSION. Admitted From Home Pre-Admission Level Of Functioning Status Assist With ADL Level Of Functioning Comment PER SON, PATIENT REQUIRES ASSISTANCE WITH MEAL PREPARATION, BATHING, MEDICATION, AND TOILETING. Prior Resources/Services Used In Last 12 Months [facility] Prior Resources/Service Comments PATIENT RECEIVES 60 HOURS MONTHLY. Prior DME Walker Wheelchair Dialysis Comments N/A Living Situation Lives With Family House Patient Had Caregiver Yes Name and Contact Number Of Designated Caregiver ANDREEA PERRY - [phone] Home Support No Caregiver Issues Financial Issues No Known Financial Issue Referral To The Financial Counselor Needed No Factors/Needs No D/C Needs Identified Pt/Rep Participated In Discharge Plan Yes Patient/Family Agress With Discharge Plan Yes Discharge Plan Comments TENTATIVE DISCHARGE PLAN IS FOR PATIENT TO RETURN HOME. DC Plan Status Initiated
--- NOTE | 2021-02-07 11:28 | NUR ---
CRYSTAL EVALUATOR CALLED TO BEDSIDE, PT REMOVED O2 AND WAS HALF OUT OF BED, PT RR>30 RETURNED TO BIPAP TO RECOVER WITH SpO2 REURN>90%, WILL REST ON BiPAP WHILE RN MEDICATES.
--- NOTE | 2021-02-07 11:29 | NUR ---
PT CONFUSED AND TAKING OFF HIGH FLOW NASAL CANNULA WHILE TRYING TO CLIMB OUT OF BED. PT DESAT TO 67% ON ROOM AIR. PT AAOX1. CALLED RT FOR ASSISTANCE. PT PLACED ON BIPAP SATURATING AT 96%. PAGED DR. GARCIA FOR ORDERS. ORDERS RECEIVED. SAFETY MEASURES IN PLACE. WILL CONTINUE TO MONITOR
--- NOTE | 2021-02-07 11:30 | NUR ---
PT TOOK OFF BIPAP AND DESAT TO 70% ON ROOM AIR. EDUCATED PT ON IMPORTANCE OF OXYGEN MAINTAINCE. PT AAOX0 AND UNABLE TO VERBALIZE UNDERSTANDING. WILL CONTINUE TO MONITOR
[2021-02-07] MEDS: LORazepam 2 MG/ML VIAL IM/IVP PRN ×3 (11:48→23:35)
--- NOTE | 2021-02-07 11:48 | NUR ---
PT TOOK OFF BIPAP AND DESAT TO 72%. WHEN EDUCATING PATIENT ON IMPORTANCE PT UNABLE TO VERBALIZE UNDERSTANDING. PT AAOXO AND CONFUSED. PT UNABLE TO STATE WHERE SHE IS, WHAT THE DAY IS, OR WHAT THE YEAR IS. PT IS AWARE OF NAME. ADMINISTERED PRN ATIVAN PRESCRIBED PER MD ORDER. SAFETY MEASURES IN PLACE. WILL CONTINUE TO MONITOR
--- NOTE | 2021-02-07 12:32 | NUR ---
PT HAS NO RESTRAINTS. PT SLEEPING. RT AT BEDSIDE AND SPOKE TO DR. GARCIA. CHARGE NURSE SPOKE WITH DR. GARCIA WELL TO UPDATE. ORDERS RECEIVED. SAFETY MEASURES IN PLACE. WILL CONTINUE TO MONITOR
--- NOTE | 2021-02-07 12:45 | NUR ---
PT PULLED OUT PICC LINE AND MCCLAIN CATHETER. NO SIGNS OF BLEEDING OR DISTRESS AT THIS TIME. NO SIGNS OF DISTRESS. NEWLY PLACED 16FR MCCLAIN CATHETER INSERTED PER MD ORDER. WILL FOLLOW UP WITH PICC LINE PLACEMENT. PT IN SOFT BILATERAL UPPER EXTREMITY RESTRAINTS. SAFETY MEASURES IN PLACE. WILL CONTINUE TO MONITOR
[2021-02-07] MEDS: INSULIN REGULAR, HUMAN 100 UNIT in NACL 0.9% 100 ML IV SCH ×4 (13:00→19:13)
[2021-02-07 13:02] LABS: ANION GAP 20.5 (8-16); CARBON DIOXIDE 12.2 mmol/L (21-32); POTASSIUM 4.7 mmol/L (3.5-5.1)
[2021-02-07 13:03] LABS: MAGNESIUM 2.1 mg/dL (1.8-2.4); PHOSPHORUS 5.7 mg/dL (2.5-4.9)
[2021-02-07 13:18] LABS: CREATININE 4.7 mg/dL (0.6-1.3)
--- NOTE | 2021-02-07 13:30 | NUR ---
OBJECTIVE C DEVELOPER CALLED PICCRN PT FOR PICCLINE REINSERTION
[2021-02-07] MEDS ORDERED: MORPHINE SULFATE 2 MG/ML SYR IVP PRN (13:50)
[2021-02-07] MEDS: SODIUM BICARBONATE 8.4% PFS 50 MEQ/50 ML SYR IVP SCH ×2 (14:00→20:11)
[2021-02-07] MEDS ORDERED: FUROSEMIDE 100 MG/10 ML VIAL IV SCH (14:00)
--- NOTE | 2021-02-07 14:01 | NUR ---
PT IS IN SEVERE PAIN. PRN MORPHINE ADMINISTERED PRESCRIBED PER MD ORDER. PT TOLERATED WELL. SAFETY MEASURES IN PLACE. WILL CONTINUE TO MONITOR
--- NOTE | 2021-02-07 14:03 | NUR ---
02/07/21 RD INITIAL ASSESSMENT COMPLETED PLEASE REFER TO NUTRITION ASSESSMENT UNDER CARE ACTIVITY FOR ESTIMATED NUTRITIONAL NEEDS. 1. CURRENTLY NPO 2. IF/WHEN MEDICALLY CLEARED RECOMMEND SWALL[facility]. RD TO FOLLOW-UP 2-3 DAYS, HIGH RISK DHARMESH SAUCEDO, RD
--- NOTE | 2021-02-07 16:05 | NUR ---
PT BLOOD SUGAR IS 256. PT ON INSULIN DRIP. NO SIGNS OF DISTRESS. WILL CONTINUE TO MONITOR
[2021-02-07 17:32] LABS: ANION GAP 25.2 (8-16); CARBON DIOXIDE 10.8 mmol/L (21-32)
--- NOTE | 2021-02-07 17:45 | NUR ---
OBTAINED CONSENT FOR PICC LINE FROM TRICIA DORAN [phone] VERIFIED WITH SECOND NURSE. SAFETY MEASURES IN PLACE. WILL CONTINUE TO MONITOR
[2021-02-07 18:00] LABS: CREATININE 4.7 mg/dL (0.6-1.3)
--- NOTE | 2021-02-07 18:20 | NUR ---
PT RESTLESS, ATTEMPTING TO PULL OFF OXYGEN NC, GOWN, IV, AND MCCLAIN. PT AAOX0. ADMINISTERED PRN ATIVAN PRESCRIBED PER MD ORDER. PT TOLERATED WELL. SAFETY MEASURES IN PLACE. WILL CONTINUE TO MONITOR
[2021-02-07 18:51] LABS: MAGNESIUM 2.1 mg/dL (1.8-2.4); PHOSPHORUS 5.8 mg/dL (2.5-4.9)
--- NOTE | 2021-02-07 19:14 | NUR ---
ENDORSED TO NIGHTSHIFT FOR CONTINUITY OF CARE. PT IS STABLE
--- NOTE | 2021-02-07 19:15 | NUR ---
RECEIVED BEDSIDE REPORT FROM DAY SHIFT NURSE NICHO RN, PT RESTING, NO DISTRESS NOTED, BILATERAL SOFT WRIST RESTRAINTS, NO S/S OF INJURY, PT AWAKE ABLE TO LET NEEDS KNOWN, PT ON HIGH FLOW O2 30LPM, FIO2 100%, SATURATING @ 95%, NO SOB NOTED, IV TO R FA 24G, PATENT INTACT, INFUSING NS @ 100ML/HR, INSULIN DRIP @ 0.05UNIT/KG/HR, INFUSING WELL, MCCLAIN CATH IN PLACE DRAINING TO GRAVITY, INITIAL ASSESSMENT DONE, ALL SAFETY PRECAUTION MET, CALL LIGHT WITHIN REACH, WILL CONTINUE TO MONITOR.
--- NOTE | 2021-02-07 19:37 | NUR ---
SPEECH THERAPIST AT BEDSIDE DOING SWALLOW EVAL. PER ST PT IS NOT ABLE TO SWALLOW, IT IS NOT SAFE TO GIVE ANYTHING TO PT BY MOUTH. TO KEEP PT NPO.
--- NOTE | 2021-02-07 19:41 | NUR ---
PT WAS SEEN FOR DYSPHAGIA. PT WAS POCKETING AND HIGH RISK OF ASPIRATION FOR ANY PO TRIALS. RECOMMENDATION NOTHING BY MOUTH
[2021-02-07] MEDS: DEXT 5% / NACL 0.45% 1,000 ML IV SCH (19:45)
--- NOTE | 2021-02-07 20:02 | NUR ---
DUE MEDICATIONS ADMINISTERED, PT TOLERATED WELL, LOPRESSOR PO NOT GIVEN DUE TO PT FAILED SWALLOW EVAL. PT CURRENTLY NPO. WILL CONTINUE TO MONITO.
[2021-02-07] MEDS: MUPIROCIN CA NASAL 2% 1GM TUBE NS SCH (20:10)
[2021-02-07] MEDS: CHLORHEXADINE GLUC 2% CLOTH TP SCH (20:11)
[2021-02-07 20:25] LABS: CARBON DIOXIDE 13.7 mmol/L (21-32); POTASSIUM 3.7 mmol/L (3.5-5.1)
[2021-02-07 20:26] LABS: MAGNESIUM 2.1 mg/dL (1.8-2.4); PHOSPHORUS 3.7 mg/dL (2.5-4.9)
[2021-02-07 20:35] LABS: CREATININE 4.6 mg/dL (0.6-1.3)
--- NOTE | 2021-02-07 22:15 | NUR ---
PT RESTING, RESTLESS TRYING TO PULL LINES, RESTRAINTS IN PLACE, NO S/S OF INJURY.
--- NOTE | 2021-02-07 23:36 | NUR ---
DR GARCIA CALLED, TALKED TO DR GARCIA REGARDING PT STILL AGITATED AND RESTLESS, TRYING TO PULL LINES, PER DR GARCIA OK TO CHANGE THE ORDER OF ATIVAN TO Q4H INSTEAD OF Q6H. WILL CONTINUE TO WITH ORDERS.
[2021-02-08] VITALS (25 sets, daily range): BP systolic 101–164; BP diastolic 42–83
[2021-02-08] MEDS: BLOOD GLUCOSE MONITORING 1 DEV DEV FS SCH ×13 (00:05→20:21)
[2021-02-08 00:30] LABS: ANION GAP 20.4 (8-16); CARBON DIOXIDE 14.3 mmol/L (21-32); PHOSPHORUS 3.8 mg/dL (2.5-4.9); POTASSIUM 3.7 mmol/L (3.5-5.1)
[2021-02-08 00:32] LABS: CREATININE 4.5 mg/dL (0.6-1.3)
[2021-02-08] MEDS: ALBUTEROL SULFATE/IPRATROPIU 3 ML SOL IH SCH ×4 (00:52→19:00)
--- NOTE | 2021-02-08 02:12 | NUR ---
PT RESTING, NO DISTRESS NOTED, RESTLESS, RESTRAINTS IN PLACE, NO S/S OF INJURY, WILL CONTINUE TO MONITOR.
[2021-02-08] MEDS: LORazepam 2 MG/ML VIAL IM/IVP PRN ×3 (03:25→12:36)
--- NOTE | 2021-02-08 03:25 | NUR ---
PT VERY RESTLESS, TRYING TO GET OUT OF BED, EXPLAINED TO PT, REORIENT PT, PT STILL TRYING TO GET OUT OF BED, ATIVAN GIVEN PER DR DE LA TORRE, WILL CONTINUE TO LILLIAN. Addendum: 02/08/21 at 0327 by Mae Cooper RN NOTED V/S STABLE 143/73, HR 101, RR 26, O2 SAT 97% ON HIFLOW O2
[2021-02-08] MEDS: NACL 0.9% 1,000 ML IV SCH (03:49)
--- NOTE | 2021-02-08 03:55 | NUR ---
PT WENT TO CT, FOR CT HEAD, IN STABLE CONDITION.
--- NOTE | 2021-02-08 04:25 | NUR ---
CAME BACK FROM CT, PT TOLERATED WELL, WILL CONTINUE TO MONITOR.
[2021-02-08 06:03] LABS: BASOPHILS % (AUTO) 0.4 % (0.0-2.0); HEMATOCRIT 22.6 % (36-48); HEMOGLOBIN 7.4 g/dL (12.0-16.0); LYMPHOCYTES # (AUTO) 0.5 K/uL (2.5-16.5); LYMPHOCYTES % (AUTO) 4.5 % (20.5-51.1); MEAN CORPUSCULAR HEMOGLOBIN 28 pg (27-31); MEAN CORPUSCULAR HGB CONC 33 g/dL (33-37); MEAN CORPUSCULAR VOLUME 84.8 fL (80-94); MONOCYTES # (AUTO) 0.1 K/uL (0.8-1.0); MONOCYTES % (AUTO) 1.1 % (1.7-9.3); NEUTROPHILS # (AUTO) 11.3 K/uL (1.8-7.7); PLATELET COUNT (AUTO) 209 K/uL (140-450); RED BLOOD CELL COUNT(AUTO) 2.66 MIL/uL (4.20-5.40); RED CELL DISTRIBUTION WIDTH 14.1 % (11.6-13.7); WHITE BLOOD COUNT (AUTO) 12.1 K/uL (4.8-10.8)
[2021-02-08 06:16] LABS: ANION GAP 20.7 (8-16); CARBON DIOXIDE 14.9 mmol/L (21-32); POTASSIUM 3.6 mmol/L (3.5-5.1)
[2021-02-08 06:20] LABS: CREATININE 4.2 mg/dL (0.6-1.3)
--- NOTE | 2021-02-08 06:20 | NUR ---
NOTIFIED DR. GARCIA REGARDING PT BLOOD SUGAR 68 @ 6AM, ANION GAP STILL 20.7. PER DR TO CONTINUE INSULIN DRIP AND FLUIDS D5 1/2NS @ 150ML/HR. WILL CONTINUE WITH ORDERS.
[2021-02-08 06:23] LABS: MAGNESIUM 1.9 mg/dL (1.8-2.4); PHOSPHORUS 3.7 mg/dL (2.5-4.9)
[2021-02-08] MEDS: DEXT 5% / NACL 0.45% 1,000 ML IV SCH (06:37)
--- NOTE | 2021-02-08 07:17 | NUR ---
ENDORSED PT TO DAY SHIFT NURSE KANDACE LINTON FOR CONTINUOUS OF CARE.
--- NOTE | 2021-02-08 07:18 | NUR ---
RECEIVED REPORT FROM RADIOLOGICAL ENGINEER NURSE. PATIENT CONTINUES TO BE IN CRITICAL CONDITION. INSULIN DRIP INFUSING. ON HIGH FLOW 30L/MIN WITH 100% FIO2. SAFETY MEASURES IN PLACE, CALL LIGHT WITHIN REACH. WILL CONTINUE TO MONITOR.
[2021-02-08] MEDS: SODIUM BICARBONATE 8.4% PFS 50 MEQ/50 ML SYR IVP SCH ×2 (08:27→20:22)
[2021-02-08] MEDS: PANTOPRAZOLE 40 MG INJ VIAL IVP SCH (08:27)
[2021-02-08 08:32] LABS: ANION GAP 20.7 (8-16); CARBON DIOXIDE 14.1 mmol/L (21-32); POTASSIUM 3.8 mmol/L (3.5-5.1)
[2021-02-08 08:37] LABS: MAGNESIUM 1.8 mg/dL (1.8-2.4); PHOSPHORUS 3.6 mg/dL (2.5-4.9)
--- NOTE | 2021-02-08 08:56 | NUR ---
PATIENT RESPIRATIONS 32, ATIVAN GIVEN AT THIS TIME. RHONCHI SOUND HEARD ON ALL LUNG QUADRANTS. SCHEDULED IV MEDICATIONS DUE GIVEN. UNABLE TO GIVE ORAL MEDICATION AT THIS TIME DUE TO PATIENT LETHARGIC, MIGHT ASPIRATE. WILL NOTIFY DR. GARCIA. WILL CONTINUE TO MONITOR.
[2021-02-08] MEDS: ATORVASTATIN 80 MG TAB PO SCH (09:00)
[2021-02-08] MEDS: METOPROLOL 50 MG TAB PO SCH ×2 (09:00→20:22)
[2021-02-08] MEDS: ASCORBIC ACID 500 MG TAB PO SCH (09:00)
[2021-02-08] MEDS: ZINC SULF 220 MG CAP PO SCH (09:00)
[2021-02-08] MEDS: amLODIPine 5 MG TAB PO SCH (09:00)
[2021-02-08] MEDS: hydrALAZINE 25 MG TAB PO SCH ×2 (09:00→13:00)
[2021-02-08] MEDS: ASPIRIN 81 MG TAB.CHEW PO SCH (09:00)
--- NOTE | 2021-02-08 09:20 | NUR ---
DR. GARCIA AT BEDSIDE REVIEWING PLAN OF CARE WITH PATIENT. WILL CONTINUE TO MONITOR.
[2021-02-08 09:21] LABS: CREATININE 4.1 mg/dL (0.6-1.3)
--- NOTE | 2021-02-08 09:28 | NUR ---
PHONE CALL MADE TO SON ANDREEA PERRY FOR CONDITION UPDATE BY DR GARCIA
[2021-02-08] MEDS ORDERED: DEXTROSE 50% 50 ML SYR IVP PRN (09:35)
[2021-02-08] MEDS ORDERED: DEXT 5% / NACL 0.9% 500 ML IV SCH (09:40)
[2021-02-08 09:49] LABS: APPEARANCE,URINE SLIGHTLY HAZY (CLEAR); BILIRUBIN,URINE NEGATIVE (NEGATIVE); BLOOD, URINE 3+ (NEGATIVE); COLOR,URINE YELLOW (YELLOW); LEUKOCYTE ESTERASE ,URINE NEGATIVE (NEGATIVE); NITRITE, URINE NEGATIVE (NEGATIVE); PH,URINE 5.5 (5.0-9.0); UGLUCOSE NEGATIVE (NEGATIVE)
[2021-02-08 09:54] LABS: RBC,URINE 50-80 /HPF (0-5); WBC,URINE 0-5 /HPF (0-5)
[2021-02-08] MEDS: FUROSEMIDE 40 MG/4 ML VIAL IVP SCH ×2 (09:54→17:42)
[2021-02-08 09:55] LABS: URINE AMORPHOUS URATE 1+ /HPF (None Seen)
--- NOTE | 2021-02-08 09:55 | NUR ---
PICC LINE CENTER CONTACT, AND TOLD AMY IS THE PICC RN FOR [facility] AND HE WILL CALL SHORTLY.
--- NOTE | 2021-02-08 10:07 | NUR ---
RECEIVED CALL BACK FROM PICC RN AMY, THAT HE WILL BE HERE SHORTLY.
--- NOTE | 2021-02-08 10:11 | NUR ---
SCHEDULED MEDICATIONS DUE GIVEN. WILL CONTINUE TO MONITOR.
--- NOTE | 2021-02-08 10:33 | NUR ---
RECEIVED CALL FROM SON ANDREEA, UPDATED HIM WITH PATIENT'S CONDITION, AND PLAN OF CARE, ANDREEA WAS AWARE. ANDREEA REQUESTS TO ADD PATIENT'S SISTER AKIL Ferro. PN PROFILE, ALLOWED HER TO CALL FOR MEDICAL INFORMATION AND MAKE MEDICAL DECISION FOR PATIENT.
--- NOTE | 2021-02-08 10:58 | NUR ---
BP 162/75, P:108. PRN HYDRALAZINE GIVEN AT THIS TIME. ECHOCARDIOGRAM TECH AT BEDSIDE TO PERFORM ECHOCARDIOGRAM. WILL CONTINUE TO MONITOR.
[2021-02-08] MEDS: INSULIN LISPRO SLIDING SCALE 100 UNITS/ML VIAL SUBQ PRN ×3 (11:48→20:24)
--- NOTE | 2021-02-08 11:49 | NUR ---
SCHEDULED MEDICATIONS DUE GIVEN. WILL CONTINUE TO MONITOR.
--- NOTE | 2021-02-08 13:51 | NUR ---
ASSISTED RT AT BEDSIDE PERFORMING NASO SUCTIONING. PATIENT TOLERATED WELL. WILL CONTINUE TO MONITOR.
--- NOTE | 2021-02-08 15:36 | NUR ---
DR ORTIZ IS TALKING TO SON ANDREEA ON THE PHONE TO DISCUSS PLAN OF CARE.
[2021-02-08] MEDS ORDERED: MORPHINE SULFATE 50 MG in NACL 0.9% 45 ML IV PRN (15:40)
[2021-02-08] MEDS ORDERED: PROPOFOL 1000 MG/100 ML PREMIX 100 ML IV ONE (15:43)
--- NOTE | 2021-02-08 15:58 | NUR ---
PT INTUBATED BY WITHOUT INCIDENT. ETT 7.5 @22 TEETH/GUM SECURED WITH ANCHOR FAST DEVICE. ADEQUATE COLOR CHANGE ON CO2 DETECTOR. BILATERAL BREATH SOUNDS HEARD ON AUSCULTATION. CXR TO BE ORDERED.
--- NOTE | 2021-02-08 16:06 | NUR ---
PT PLACED ON VENTILATOR. CALCULATED VT PER IBW/KG SHOWN TO . VENT SETTINGS MADE BY AC 24, VT 375, PEEP 10 AND FIO2 100%, WILL OBTAIN ABG. VENT IS PLUGGED INTO A RED OUTLET WITH ALARMS ON AND FUNCTIONING.
--- NOTE | 2021-02-08 16:19 | NUR ---
assisted rt with intubation at bedside, pt tolerated intubation well, color change noted during bagging, and assisted casey placement after intubation.
--- NOTE | 2021-02-08 16:26 | NUR ---
RECEIVED VERBAL ORDER AT NURSING STATION FROM DR ORTIZ, TO DC ALL BLOOD PRESSURE MEDS: AMLODIPINE, HYDRALAZINE. DC PER MD ORDER.
[2021-02-08] MEDS: PROPOFOL 1000 MG/100 ML PREMIX 100 ML IV PRN (16:36)
--- NOTE | 2021-02-08 17:04 | NUR ---
PER ETT PULLED BACK 1CM TO 21cM TEETH/GUM.
--- NOTE | 2021-02-08 17:18 | NUR ---
ABG RESULTS GIVEN TO OVER PHONE. PHYSICIAN STATES TO WEAN FIO2 AT THIS TIME NO OTHER CHANGES TO BE MADE. NO REPEAT ABG ORDER. WILL CONTINUE TO MONITOR.
--- NOTE | 2021-02-08 17:42 | NUR ---
SCHEDULED MEDICATIONS DUE GIVEN. CLEANED AND TURNED PATIENT. WILL CONTINUE TO MONITOR.
--- NOTE | 2021-02-08 17:46 | NUR ---
FIO2 TITRATED TO 70%. SPO2 96%. PT NOT IN ANY DISTRESS AT THIS TIME. NURSE MADE AWARE OF CHANGE. VENT ALARMS ON AND FUNCTIONING. ETT IS SECURE WITH A PATENT AIRWAY.
--- NOTE | 2021-02-08 19:30 | NUR ---
RECEIVED PT ON AC/VC 375 f 24 70%, ETT SECURED AT 21CM. ETT CUFF MAY BE LEAKING/RUPTURED DUE TO OCCASIONAL GURGLE, AND APPEARS NOT TO BE HOLDING PRESSURE IN TOBACCO SORTER BALLOON. ED DR NOTIFIED AND WILL RE-ASSESS AND RE-INTUBATE IF NEEDED. PT IS RECEIVING ADEQUATE VOL AT THIS TIME W/ BILAT AUDIBLE B/S. PT SPO2 IS 96% VENT ALARMS ON AND AUDIBLE. AMBU AT BEDSIDE AND VENT PLUGGED INTO RED OUTLET. Tx NOT GIVEN AT THIS TIME DUE TO CUFF. WILL CONTINUE TO MONITOR
--- NOTE | 2021-02-08 19:50 | NUR ---
PER DR. MCCOY, STOP IVF.
--- NOTE | 2021-02-08 20:08 | NUR ---
RECEIVED REPORT FROM [facility] NURSE. PT ETT TO VENT, ACVC FI02 70%, TV 375, RATE 24, PEEP 10. VENT ALARMING, RT AT BEDSIDE. OGT IN PLACE, CONNECTED TO TUBE FEEDING NEPRO @ 20ML/HR. LUNG SOUNDS CLEAR, EQUAL CHEST RISE AND FALL. DIMINISHED AT BILATERAL BASES. RIJ CARLITOS CATH WITH PIGTAIL IN PLACE, DRESSING DRY AND INTACT. ISIDRO PICC IN PLACE, PROPOFOL @ 10MCG/KG/MIN, DRY WT. 93.89 KG. RASS -3, PT WITHDRAWS TO PAIN, IVF TKO. RIGHT FA 20G, SL. ABDOMEN LARGE, SOFT AND NONTENDER. BOWEL SOUNDS ACTIVE. MCCLAIN CATHETER IN PLACE, DRAINING BY GRAVITY, CLEAR YELLOW URINE NOTED. LEFT BKA. SKIN WARM AND DRY, INTACT, AFEBRILE. BILATERAL SOFT WRIST RESTRAINTS IN PLACE, NO INJURIES NOTED, CAP REFILL LESS THAN 3 SECONDS. QUICK RELEASE KNOTS. FLACC 0. HOB 30 DEGREES, SIDE RAILS UP, BED LOCKED AND IN LOWEST POSITION. DROPLET PRECAUTIONS IN PLACE. WILL CONTINUE TO MONITOR.
[2021-02-08] MEDS: MUPIROCIN CA NASAL 2% 1GM TUBE NS SCH (20:19)
[2021-02-08] MEDS: CHLORHEXADINE GLUC 2% CLOTH TP SCH (20:20)
[2021-02-08] MEDS ORDERED: LEVOFLOXACIN 500 MG/D5W PREMIX 100 ML IV SCH (21:00)
--- NOTE | 2021-02-08 21:14 | NUR ---
XRAY AT BEDSIDE, CHARGE NURSE TO ASSIST
--- NOTE | 2021-02-08 21:30 | NUR ---
CONFIRMED OGT PLACEMENT VIA AUSCULTATION,GASTRIC RESIDUALS 5 ML. SCHEDULED MEDS GIVEN. TURNED AND REPOSITION PT, SMALL BM NOTED. PROVIDED SKIN CARE, AND CHLORHEXIDINE BATH. PROVIDED ORAL CARE. PT WITHDRAWS TO PAIN AND SUCTIONING AND CLEANING. INCREASED TUBE FEEDING TO 30ML/HR. WILL CONTINUE TO MONITOR. SAFETY MEASURES IN PLACE.
--- NOTE | 2021-02-08 22:20 | NUR ---
UPDATED PT's SON ON PATIENT CONDITION. ANSWERED ALL QUESTIONS AND CONCERNS. AWARE OF HD SCHEDULED FOR TOMORROW.
--- NOTE | 2021-02-08 23:14 | NUR ---
SPOKE WITH PATIENTS DAUGHTER, VERIFIED WITH LEWIS (SON-PERSON ON FACE SHEET) VERIFIED OK TO GIVE PATIENT UPDATE, LEWIS AT WORK, WANTS TO ALLOW SISTER TO CALL WHEN HES AT WORK. WILL UPDATE. MIRA YIBARD (DAUGHTER) [phone]
--- NOTE | 2021-02-08 23:50 | NUR ---
PT STARTING TO WAKE UP, WENT TO BEDSIDE, PT HAS EYES OPEN AND ATTEMPTING TO TALK. PT RESPONDING TO SIMPLE COMMANDS. REORIENTED PT TO TREATMENT PLAN AND TO UNIT. INCREASED SEDATION, SEE IV SPREADSHEET. VENT ALARMING CONTINUOUSLY, SP02 WITHIN RANGE. RT AWARE. RT INFLATING CUFF. ER MD AWARE OF STATUS. WAITING FOR ERMD TO ASSESS PT.
[2021-02-09] VITALS (35 sets, daily range): BP systolic 115–169; BP diastolic 50–74
[2021-02-09] MEDS: ALBUTEROL SULFATE/IPRATROPIU 3 ML SOL IH SCH ×4 (01:00→19:40)
--- NOTE | 2021-02-09 02:46 | NUR ---
ED MD CAME TO BEDSIDE AN EXCHANGED ETT CUFF WAS RUPTURED. 8.0 ETT SECURED @ 21CM ( PREVIOUSLY WAS) W/ COLOR CHANGE ON EZ CAP, CONDENSATION IN ETT, AND BILAT B/S. NO CHANGES ON VENT. CXR PENDING FOR PLACEMENT WILL CONTINUE TO MONITOR
[2021-02-09] MEDS: PROPOFOL 1000 MG/100 ML PREMIX 100 ML IV PRN ×4 (03:02→23:05)
--- NOTE | 2021-02-09 04:03 | NUR ---
RT AT BEDSIDE, DECREASED FI02 TOLERATED. SP02 WITHIN RANGE. PT TURNED AND REPOSITIONED. PROVIDED ORAL CARE. PT OPENS EYES TO PAIN. RESTRAINTS RELEASED, SKIN AND CIRCULATION INTACT. PT ATTEMPTS TO THRASH AT NURSE. REPLACED RESTRAINTS IN QUICK RELEASE KNOTS. SAFETY MEASURES IN PLACE. WILL CONTINUE TO MONITOR.
[2021-02-09 06:10] LABS: HEMATOCRIT 21.7 % (36-48); HEMOGLOBIN 7.4 g/dL (12.0-16.0); LYMPHOCYTES # (AUTO) 0.4 K/uL (2.5-16.5); LYMPHOCYTES % (AUTO) 3.7 % (20.5-51.1); MEAN CORPUSCULAR HEMOGLOBIN 29 pg (27-31); MEAN CORPUSCULAR HGB CONC 34 g/dL (33-37); MEAN CORPUSCULAR VOLUME 84.9 fL (80-94); MONOCYTES # (AUTO) 0.1 K/uL (0.8-1.0); MONOCYTES % (AUTO) 1.3 % (1.7-9.3); NEUTROPHILS # (AUTO) 10.3 K/uL (1.8-7.7); PLATELET COUNT (AUTO) 218 K/uL (140-450); RED BLOOD CELL COUNT(AUTO) 2.55 MIL/uL (4.20-5.40); RED CELL DISTRIBUTION WIDTH 14.1 % (11.6-13.7); WHITE BLOOD COUNT (AUTO) 10.9 K/uL (4.8-10.8)
--- NOTE | 2021-02-09 06:11 | NUR ---
PTS RESIDUALS OVER 200ML. HELD FEEDING AT THIS TIME. MCCLAIN EMPTIED, 750ML. PROVIDED SPONGE BATH AND MCCLAIN CARE. NO INJURIES AT SACRUM NOTED. OFFLOADED PRESSURE AREAS. SAFETY MEASURES IN PLACE. PT SEDATED RASS -3. WILL ENDORSE TO DAYSHIFT NURSE.
[2021-02-09 06:21] LABS: ANION GAP 18.2 (8-16); CARBON DIOXIDE 19.2 mmol/L (21-32); POTASSIUM 4.4 mmol/L (3.5-5.1)
[2021-02-09 06:34] LABS: CREATININE 4.2 mg/dL (0.6-1.3)
[2021-02-09] MEDS: BLOOD GLUCOSE MONITORING 1 DEV DEV FS SCH ×4 (06:44→21:06)
[2021-02-09] MEDS: INSULIN LISPRO SLIDING SCALE 100 UNITS/ML VIAL SUBQ PRN ×4 (06:45→21:08)
--- NOTE | 2021-02-09 07:09 | NUR ---
RECEIVED INTUBATED PT WITH A 8.0 ETT SECURED @21 TEETH/GUM ON VENT. SETTINGS AC 24, VT 375, PEEP 5cmH2O AND FIO2 60%. PT SUCTIONED OBTAINED SMALL AMOUNT OF THICK YELLOW SECRETIONS, AIRWAY IS PATENT AND ETT IS SECURE WITH ANCHOR FAST DEVICE. PT IS SEDATED BREATHING OVER SET VT/RR, TACHYPNEIC. VENT IS PLUGGED INTO A RED OUTLET WITH ALARMS ON AND FUNCTIONING. BREATHING TX DUONEB 3ML TO BE ADMINISTERED. WILL CONTINUE TO MONITOR.
--- NOTE | 2021-02-09 07:30 | NUR ---
RECEIVED REPORT FROM P D DRIVER NURSE. PATIENT ETT TO VENT. MCCLAIN CATH IN PLACE, ISIDRO PICC LINE INTACT, PATENT. RIJ CARLITOS CATHETER IN PLACE. HD SCHEDULED LATER TODAY. OGTUBE IN PLACE, ON CONTINUOUS FEEDING. SAFETY MEASURES IN PLACE. WILL CONTINUE TO MONITOR.
[2021-02-09] MEDS: FUROSEMIDE 40 MG/4 ML VIAL IVP SCH ×2 (08:25→17:00)
[2021-02-09] MEDS: ATORVASTATIN 80 MG TAB PO SCH (08:26)
[2021-02-09] MEDS: ASPIRIN 81 MG TAB.CHEW PO SCH (08:26)
[2021-02-09] MEDS: PANTOPRAZOLE 40 MG INJ VIAL IVP SCH (08:26)
[2021-02-09] MEDS: ASCORBIC ACID 500 MG TAB PO SCH (08:27)
[2021-02-09] MEDS: ZINC SULF 220 MG CAP PO SCH (08:27)
[2021-02-09] MEDS ORDERED: DEXAMETHASONE 4 MG/ML VIAL IVP SCH (09:00)
--- NOTE | 2021-02-09 09:30 | NUR ---
SCHEDULED MEDICATIONS DUE GIVEN. OGTUBE RESIDUAL CHECKED AT 280 ML. WILL CONTINUE TO HOLD FEEDINGS. PERFORMED ORAL CARE AND ETT SUCTIONING. WILL CONTINUE TO MONITOR.
--- NOTE | 2021-02-09 11:05 | NUR ---
PHONE CALL MADE TO SON ANDREEA PERRY, CONDITION AND PLAN OF CARE UPDATED BY DR GARCIA.
[2021-02-09] MEDS: fentaNYL citrate - 50mL vial 2.5 MG in NACL 0.9% 200 ML IV PRN (11:50)
--- NOTE | 2021-02-09 11:59 | NUR ---
FENTANYL STARTED AT THIS TIME. OTHER SCHEDULED MEDICATIONS DUE GIVEN. WILL CONTINUE TO MONITOR.
--- NOTE | 2021-02-09 13:18 | NUR ---
FIO2 TITRATED TO 45%, PEEP TITRATED TO 8cmH2O. NURSE MADE AWARE. WILL CONTINUE TO MONITOR.
--- NOTE | 2021-02-09 14:34 | NUR ---
DR ORTIZ AT BEDSIDE
--- NOTE | 2021-02-09 17:18 | NUR ---
CLEANED AND REPOSITIONED PATIENT. RECHECKED OGTUBE RESIDUAL AT 380. WILL CONTINUE TO HOLD FEEDING. SAFETY MEASURES IN PLACE. WILL CONTINUE TO MONITOR.
--- NOTE | 2021-02-09 17:40 | NUR ---
PT NOT IN ANY DISTRESS AT THIS TIME. VENT ALARMS REMAIN ON AND FUNCTIONING. ETT IS SECURE WITH PATENT AIRWAY.
--- NOTE | 2021-02-09 18:35 | NUR ---
ANDREEA PERRY CALLED FOR CONDITION UPDATE, ALL QUESTIONS ASKED. AWAITING DIALYSIS TODAY.
--- NOTE | 2021-02-09 19:11 | NUR ---
GAVE REPORT TO STATION OPERATOR NURSE FOR CONTINUITY OF CARE.
--- NOTE | 2021-02-09 19:33 | NUR ---
PT RECEIVED ON SETTINGS NOTATED AC/VC 375 +8, f 24 45% W/ 8.0 ETT SECURED @ 21CM. VENT PLUGGED INTO RED OUTLET W/ ALARMS ON AND AUDIBLE. AMBU AT BEDSIDE WILL CONTINUE TO MONITOR
--- NOTE | 2021-02-09 19:37 | NUR ---
RECEIVED REPORT FROM [facility] NURSE. PT ETT TO VENT, ACVC FI02 45%, TV 375, RATE 24, PEEP 8. SIZE 8 ETT, 21 AT THE TEETH. OGT IN PLACE, FEEDING HELD AT THIS TIME. LUNG SOUNDS CLEAR, EQUAL CHEST RISE AND FALL. DIMINISHED AT BILATERAL BASES. RIJ CARLITOS CATH WITH PIGTAIL IN PLACE, DRESSING DRY AND INTACT. ISIDRO PICC IN PLACE, PROPOFOL @ 20MCG/KG/MIN, FENTANYL 1.0 MCG/KG/MIN. DRY WT. 93.89 KG. RASS -3, PT WITHDRAWS TO PAIN, OPENS EYES TO PAIN. PERRL 3MM. IVF TKO. RIGHT FA 20G, SL. ABDOMEN LARGE, SOFT AND NONTENDER. BOWEL SOUNDS ACTIVE. MCCLAIN CATHETER IN PLACE, DRAINING BY GRAVITY, CLEAR YELLOW URINE NOTED. LEFT BKA. SKIN WARM AND DRY, INTACT, AFEBRILE. BILATERAL SOFT WRIST RESTRAINTS IN PLACE, NO INJURIES NOTED, CAP REFILL LESS THAN 3 SECONDS. QUICK RELEASE KNOTS. FLACC 0. HOB 30 DEGREES, SIDE RAILS UP, BED LOCKED AND IN LOWEST POSITION. DROPLET PRECAUTIONS IN PLACE. WILL CONTINUE TO MONITOR.
[2021-02-09] MEDS: MUPIROCIN CA NASAL 2% 1GM TUBE NS SCH (20:45)
--- NOTE | 2021-02-09 20:45 | NUR ---
PT TURNED AND REPOSITIONED, PROVIDED ORAL CARE. SKIN WARM AND DRY, AFEBRILE. SKIN INTACT, OFFLOADED PRESSURE AREAS. PT IS RASS -3, WILL WITHDRAW TO PAIN, OPEN EYES, MAKE EYE CONTACT. CONFIRMED OGT PLACEMENT VIA AUSCULTATION, GASTRIC RESIDUALS 100ML. RESTARTED FEEDING, WILL TITRATE TOLERATED.
[2021-02-09] MEDS: CHLORHEXADINE GLUC 2% CLOTH TP SCH (20:46)
--- NOTE | 2021-02-09 21:32 | NUR ---
DIALYSIS NURSE AT BEDSIDE TO START HD. SAFETY MEASURES IN PLACE, WILL CONTINUE TO MONITOR. HEPATITIS PANEL ALREADY SENT TO THE LAB.
--- NOTE | 2021-02-09 21:43 | NUR ---
UPDATED PT's SON LEWIS, ANSWERED ALL QUESTIONS, SON AWARE DIALYSIS STARTING NOW.
--- NOTE | 2021-02-09 23:20 | NUR ---
ONGOING HEMODIALYSIS, WILL CONTINUE TO CLOSELY MONITOR PT
[2021-02-10] VITALS (32 sets, daily range): BP systolic 100–153; BP diastolic 44–78
--- NOTE | 2021-02-10 00:45 | NUR ---
HD COMPLETE, PT TOLERATED WELL. NO INCIDENT OCCURRED. NO SIGNS OF DISTRESS. ALL VSS. PER DIALYSIS NURSE 2L OUT. WILL CONTINUE TO MONITOR.
[2021-02-10] MEDS: ALBUTEROL SULFATE/IPRATROPIU 3 ML SOL IH SCH ×4 (01:39→19:49)
--- NOTE | 2021-02-10 02:13 | NUR ---
NO SIGNS OF DISTRESS. PT RESTING WELL. FLACC 0. NO INJURIES NOTED AT RESTRAINT SITES. SAFETY MEASURES IN PLACE.
--- NOTE | 2021-02-10 04:35 | NUR ---
TUBE FEEDING HELD, PT HAS GASTRIC RESIDUALS OVER 400ML. WILL REASSESS.
--- NOTE | 2021-02-10 06:11 | NUR ---
SPONGE BATH AND MCCLAIN CARE PROVIDED. NO SIGNS OF SKIN BREAKDOWN AT SACRUM. CHANGED ALL LINEN. GASTRIC RESIDUALS STILL OVER 400ML, CONTINUE TO HOLD. OFFLOADED PRESSURE AREAS.
[2021-02-10] MEDS: INSULIN LISPRO SLIDING SCALE 100 UNITS/ML VIAL SUBQ PRN ×3 (06:35→16:50)
[2021-02-10 06:38] LABS: ANION GAP 17.8 (8-16); CARBON DIOXIDE 19.9 mmol/L (21-32); CREATININE 3.6 mg/dL (0.6-1.3); POTASSIUM 3.7 mmol/L (3.5-5.1)
[2021-02-10] MEDS: BLOOD GLUCOSE MONITORING 1 DEV DEV FS SCH ×4 (06:41→21:10)
[2021-02-10 06:52] LABS: BASOPHILS % (AUTO) 0.2 % (0.0-2.0); EOSINOPHILS % (AUTO) 0.2 % (0.0-4.0); HEMATOCRIT 20.2 % (36-48); LYMPHOCYTES # (AUTO) 0.5 K/uL (2.5-16.5); LYMPHOCYTES % (AUTO) 5.6 % (20.5-51.1); MEAN CORPUSCULAR HEMOGLOBIN 28 pg (27-31); MEAN CORPUSCULAR HGB CONC 33 g/dL (33-37); MEAN CORPUSCULAR VOLUME 84.8 fL (80-94); MONOCYTES # (AUTO) 0.2 K/uL (0.8-1.0); MONOCYTES % (AUTO) 2.5 % (1.7-9.3); NEUTROPHILS # (AUTO) 8.5 K/uL (1.8-7.7); NEUTROPHILS % (AUTO) 91.5 % (42.2-75.2); PLATELET COUNT (AUTO) 219 K/uL (140-450); RED BLOOD CELL COUNT(AUTO) 2.39 MIL/uL (4.20-5.40); RED CELL DISTRIBUTION WIDTH 14.5 % (11.6-13.7); WHITE BLOOD COUNT (AUTO) 9.2 K/uL (4.8-10.8)
--- NOTE | 2021-02-10 06:56 | NUR ---
RECEIVED INTUBATED PT WITH A 8.0 ETT SECURED @21 TEETH/GUM ON VENT. SETTINGS AC 24, VT 375, PEEP 8 cmH2O AND FIO2 45%. PT SUCTIONED OBTAINED SMALL AMOUNT OF THICK YELLOW SECRETIONS, AIRWAY IS PATENT AND ETT IS SECURE WITH ANCHOR FAST DEVICE. PT IS SEDATED BREATHING OVER SET VT/RR, TACHYPNEIC. VENT IS PLUGGED INTO A RED OUTLET WITH ALARMS ON AND FUNCTIONING. BREATHING TX DUONEB 3ML TO BE ADMINISTERED. WILL CONTINUE TO MONITOR.
[2021-02-10 07:01] LABS: HEMOGLOBIN 6.8 g/dL (12.0-16.0)
--- NOTE | 2021-02-10 07:04 | NUR ---
PHONE CALL TO DR GARCIA; DR OCHOA INSULATION BLANKET MAKER. READ BACK CRITICAL LAB RESULT HGB 6.8 HCT 20.2; PER DR OCHOA TO GIVE 1 UNIT PRBC BUT TO COORDINATE WITH GRAVITY FLOW IRRIGATOR
--- NOTE | 2021-02-10 07:20 | NUR ---
RECEIVED REPORT FROM [employer] NURSE. PT DRY WEIGHT 93KG. PT RESTING IN BED WITH ETT TUBE IN PLACE AT 45% FIO2, 24RR, PEEP 5, TV 375. RESPIRATIONS EVEN AND UNLABORED WITH NO SOB OR RESPIRATORY DISTRESS. OGT IN PLACE WITH FEEDS ON HOLD DUE TO HIGH RESIDUAL. PT ON FENTYL 1MCG AND PROPOFOL AT 20MCG. SKIN WARM AND DRY TO TOUCH. PICC LINE IN ISIDRO IS CLEAN, DRY, AND INTACT. MCCLAIN IS DRAINING VIA GRAVITY. SAFETY MEASURE IN PLACE. WILL CONTINUE TO MONITOR
[2021-02-10] MEDS: DEXAMETHASONE 4 MG/ML VIAL IVP SCH (08:49)
[2021-02-10] MEDS: PANTOPRAZOLE 40 MG INJ VIAL IVP SCH (08:50)
[2021-02-10] MEDS: ASPIRIN 81 MG TAB.CHEW PO SCH (08:53)
[2021-02-10] MEDS: ZINC SULF 220 MG CAP PO SCH (08:53)
[2021-02-10] MEDS: ASCORBIC ACID 500 MG TAB PO SCH (08:53)
[2021-02-10] MEDS: ATORVASTATIN 80 MG TAB PO SCH (08:53)
[2021-02-10] MEDS: PROPOFOL 1000 MG/100 ML PREMIX 100 ML IV PRN ×3 (08:57→21:16)
--- NOTE | 2021-02-10 09:05 | NUR ---
ADMINISTERED SCHED MED PRESCRIBED PER MD ORDER. PT TOLERATED WELL. MEDICATION EDUCATION PERFORMED. PT SEDATED AND UNABLE TO VERBALIZE UNDERSTANDING. SAFETY MEASURES IN PLACE. WILL CONTINUE TO MONITOR
--- NOTE | 2021-02-10 10:14 | NUR ---
CALLED KEAGAN TO LET HER KNOW THAT PATIENT IS SCHEDULED FOR HD. KEAGAN VERBALIZED UNDERSTANDING. WILL CONTINUE TO MONITOR
--- NOTE | 2021-02-10 10:35 | NUR ---
late entry -- Rocephin infusion completed at 1015 02/06/21. Azithromycin infusion completed in ED at 1037, remainder to infuse on inpatient unit.
--- NOTE | 2021-02-10 11:30 | NUR ---
PT BLOOD SUGAR IS 341. PRN INSULIN WILL BE ADMINISTERED PRESCRIBED PER MD ORDER. WILL CONTINUE TO MONITOR
--- NOTE | 2021-02-10 11:36 | NUR ---
ATTEMPTED TO SEE PATIENT FOR PHYSICAL THERAPY TREATMENT HOWEVER PATIENT IS INTUBATED AND SEDATED. HEMOGLOBIN 6.8L. WILL FOLLOW UP WHEN PATIENT IS APPROPRIATE; RN AWARE.
--- NOTE | 2021-02-10 11:50 | NUR ---
DAUGHTER MIRA CALLED AND WANTED AN UPDATE. UPDATE GIVEN, MIRA VERBALIZED UNDERSTANDING. SAFETY MEASURES IN PLACE. WILL CONTINUE TO MONITOR
--- NOTE | 2021-02-10 12:15 | NUR ---
OBTAINED BLOOD FROM LAB. PRIOR TO ADMINISTERING BLOOD PRODUCT, VERIFIED WITH SECOND NURSE. ADMINISTERED BLOOD PRESCRIBED PER MD ORDER. PT TOLERATING WELL. SAFETY MEASURES IN PLACE. WILL CONTINUE TO MONITOR.
--- NOTE | 2021-02-10 12:51 | NUR ---
PT. WITH LOW LETICIA SCALE AT HIGH RISK, CONTINUE TO FOLLOW PRESSURE INJURY PREVENTION INTERVENTIONS. -TURN AND REPOSITION PATIENT Q 2H -ASSESS AND MONITOR SKIN CONDITION DURING POSITION CHANGE -OFFLOAD BILATERAL HEELS BY PLACING PILLOWS UNDER CALVES AT ALL TIMES, UNLESS OTHERWISE CONTRAINDICATED -PRESSURE REDISTRIBUTION BY PLACING PILLOWS AND OFFLOADING SACRALCOCCYX -KEEP SKIN CLEAN AND DRY AT ALL TIMES.
[2021-02-10] MEDS: fentaNYL citrate - 50mL vial 2.5 MG in NACL 0.9% 200 ML IV PRN (14:00)
--- NOTE | 2021-02-10 14:05 | NUR ---
PT RESTING IN BED. RESPIRATIONS EVEN AND UNLABORED WITH NO SOB OR RESPIRATORY DISTRESS. SKIN WARM AND DRY TO TOUCH. SAFETY MEASURES IN PLACE. WILL CONTINUE TO MONITOR
--- NOTE | 2021-02-10 15:13 | NUR ---
02/10/21 RD FOLLOW UP COMPLETED PLEASE REFER TO NUTRITION ASSESSMENT UNDER CARE ACTIVITY FOR ESTIMATED NUTRITIONAL NEEDS. 1. RESTART TUBE FEEDING AT A LOW RATE, NEPHRO 1.8 @ 20 ML/HR AND INCREASE BY 10 ML/HR Q2H UNTIL GOAL IS REACHED AT 40 ML/HR -THIS IS MEETING 1728 KCAL AND 78 GM PROTEIN/DAY. THIS IS MEETING 100% OF ESTIMATED KCAL NEEDS AND >85% OF PROTEIN NEEDS 2. RECOMMEND PROSOURCE ONCE DAILY TO PROVIDE AN ADDITIONAL 15 GM OF PROTEIN AND 60 KCAL. 3. CONTINUE FREE WATER FLUSH OF 100 ML Q4H OR PER MD 4. RD TO FOLLOW-UP 2-3 DAYS, HIGH RISK DHARMESH SAUCEDO, ABELARDO
--- NOTE | 2021-02-10 15:30 | NUR ---
PT FINISHED ONE UNIT OF PRBC. NO REACTIONS NOTED. SAFETY MEASURES IN PLACE. WILL CONTINUE TO MONITOR
--- NOTE | 2021-02-10 16:50 | NUR ---
PT BLOOD SUGAR IS 341. PRN INSULIN ADMINISTERED PRESCRIBED PER MD ORDER. PT TOLERATED WELL. SAFETY MEASURES IN PLACE. WILL CONTINUE TO MONITOR
--- NOTE | 2021-02-10 17:15 | NUR ---
SON ANDREEA CALLED WANTING AN UPDATE. UPDATE GIVEN. ANDREEA VERBALIZED UNDERSTANDING. SAFETY MEASURES IN PLACE. WILL CONTINUE TO MONITOR
--- NOTE | 2021-02-10 17:44 | NUR ---
PT NOT IN ANY DISTRESS AT THIS TIME. ETT IS SECURE WITH A PATENT AIRWAY. VENT ALARMS ON AND FUNCTIONING.
[2021-02-10 18:03] LABS: BASOPHILS % (AUTO) 0.1 % (0.0-2.0); EOSINOPHILS % (AUTO) 0.1 % (0.0-4.0); HEMATOCRIT 22.8 % (36-48); HEMOGLOBIN 7.5 g/dL (12.0-16.0); LYMPHOCYTES # (AUTO) 0.5 K/uL (2.5-16.5); LYMPHOCYTES % (AUTO) 5.9 % (20.5-51.1); MEAN CORPUSCULAR HEMOGLOBIN 28 pg (27-31); MEAN CORPUSCULAR HGB CONC 33 g/dL (33-37); MEAN CORPUSCULAR VOLUME 85.5 fL (80-94); MONOCYTES # (AUTO) 0.2 K/uL (0.8-1.0); MONOCYTES % (AUTO) 2.4 % (1.7-9.3); NEUTROPHILS # (AUTO) 7.4 K/uL (1.8-7.7); NEUTROPHILS % (AUTO) 91.5 % (42.2-75.2); PLATELET COUNT (AUTO) 221 K/uL (140-450); RED BLOOD CELL COUNT(AUTO) 2.66 MIL/uL (4.20-5.40); RED CELL DISTRIBUTION WIDTH 14.2 % (11.6-13.7); WHITE BLOOD COUNT (AUTO) 8.1 K/uL (4.8-10.8)
--- NOTE | 2021-02-10 19:20 | NUR ---
ENDORSED TO NIGHTSHIFT FOR CONTINUITY OF CARE. PT IS STABLE
--- NOTE | 2021-02-10 19:30 | NUR ---
RECEIVED REPORT FROM DAY SHIFT RN; PT SEDATED RASS-3. RESTRAINTS IN PLACE SOFT WRIST BILATERAL. ETT TO VENT ON 45% FIO2, MINIMAL CREAMY SECRETIONS NOTED, PRESSURE CONTROL PEEP 8. ST WITH FREQUENT PACS NOTED, HR 120-130S. NO EDEMA NOTED. PALPABLE PULSES INTACT. OGT IN PLACE, HIGH RESIDUALS NOTED >300 ML. MCCLAIN CATH IN PLACE, OLIGURIC. SKIN INTACT, L BKA NOTED. ISIDRO PICC NOTED, RIJ CARLITOS IN PLACE. FENTANYL @ 1 MCG/KG/HR, PROPOFOL DRIP INFUSING. NO ACUTE DISTRESS NOTED. BED LOCKED IN LOWEST POSITION. WILL CONTINUE TO OBSERVE. WT: 93 KG.
--- NOTE | 2021-02-10 19:43 | NUR ---
PT RECEIVED ON AC/VC 375 +8, f24 45% W/ 8.0 ETT SECURED @ 21CM. VENT PLUGGED INTO RED OUTLET W/ ALARMS ON + AUDIBLE. AMBU AT BEDSIDE. Tx WAS GIVEN BUT HR INCR TO 134 AND Tx WAS STOPPED. WILL CONTINUE TO MONITOR
[2021-02-10] MEDS: MUPIROCIN CA NASAL 2% 1GM TUBE NS SCH (20:41)
[2021-02-10] MEDS: CHLORHEXADINE GLUC 2% CLOTH TP SCH (20:41)
[2021-02-10] MEDS: LEVOFLOXACIN 500 MG/D5W PREMIX 100 ML IV SCH (21:10)
[2021-02-10] MEDS: DOCUSATE 100 MG/10 ML UDC GT SCH (21:10)
[2021-02-10] MEDS: INSULIN LANTUS 100 UNITS/ML 10 ML VIAL SUBQ SCH (21:11)
[2021-02-10] MEDS ORDERED: METOPROLOL 5 MG/5 ML VIAL IVP PRN (21:30)
--- NOTE | 2021-02-10 21:33 | NUR ---
PT SEDATED RASS-3, FLACC 0. REPOSITIONED, HIGH RESIDUALS VIA OGT, >300ML. FEEDINGS ON HOLD. WILL CONTINUE TO OBSERVE.
[2021-02-10] MEDS ORDERED: CRUSHER, PILL MC ONE (22:56)
[2021-02-10] MEDS: METOPROLOL 25 MG TAB PO SCH (22:59)
--- NOTE | 2021-02-10 23:05 | NUR ---
FAMILY UPDATED SPOKE WITH SON ANDREEA, NO ACUTE DISTRESS NOTED. WILL CONTINUE TO OBSERVE
[2021-02-11] VITALS (34 sets, daily range): BP systolic 93–155; BP diastolic 41–76
[2021-02-11] MEDS: ALBUTEROL SULFATE/IPRATROPIU 3 ML SOL IH SCH ×4 (01:36→19:22)
--- NOTE | 2021-02-11 03:30 | NUR ---
PT HAS EYES CLOSED; FLACC 0. NO ACUTE DISTRESS NOTED. WILL CONTINUE TO OBSERVE
[2021-02-11] MEDS: PROPOFOL 1000 MG/100 ML PREMIX 100 ML IV PRN ×4 (04:40→22:15)
[2021-02-11] MEDS: BLOOD GLUCOSE MONITORING 1 DEV DEV FS SCH ×4 (05:01→21:00)
[2021-02-11] MEDS: INSULIN LISPRO SLIDING SCALE 100 UNITS/ML VIAL SUBQ PRN ×4 (05:02→22:08)
[2021-02-11 05:36] LABS: BASOPHILS % (AUTO) 0.1 % (0.0-2.0); EOSINOPHILS % (AUTO) 0.2 % (0.0-4.0); HEMATOCRIT 23.7 % (36-48); HEMOGLOBIN 7.7 g/dL (12.0-16.0); LYMPHOCYTES # (AUTO) 0.7 K/uL (2.5-16.5); LYMPHOCYTES % (AUTO) 7.7 % (20.5-51.1); MEAN CORPUSCULAR HEMOGLOBIN 28 pg (27-31); MEAN CORPUSCULAR HGB CONC 32 g/dL (33-37); MEAN CORPUSCULAR VOLUME 87.3 fL (80-94); MONOCYTES # (AUTO) 0.3 K/uL (0.8-1.0); MONOCYTES % (AUTO) 3.5 % (1.7-9.3); NEUTROPHILS # (AUTO) 7.7 K/uL (1.8-7.7); NEUTROPHILS % (AUTO) 88.5 % (42.2-75.2); PLATELET COUNT (AUTO) 222 K/uL (140-450); RED BLOOD CELL COUNT(AUTO) 2.72 MIL/uL (4.20-5.40); RED CELL DISTRIBUTION WIDTH 14.7 % (11.6-13.7); WHITE BLOOD COUNT (AUTO) 8.6 K/uL (4.8-10.8)
[2021-02-11 06:04] LABS: ANION GAP 19.1 (8-16); CARBON DIOXIDE 20.9 mmol/L (21-32)
[2021-02-11 06:10] LABS: CREATININE 5.6 mg/dL (0.6-1.3)
--- NOTE | 2021-02-11 07:15 | NUR ---
RECEIVED REPORT FROM FARM SERVICE ADVISER NURSE SHOLA LINTON, FOR CONTINUITY OF CARE. PATIENT IS RASS -3, FLACC 0, RESPIRATION EVEN, UNLABORED ON ETT TO VENT, AC/VC FIO2 45%, RATE 24, PEEP 8, TD 350, SPO2 97%. IV ON ON ISIDRO PICC LINE IN PLACE, DRESSING CLEAN AND DRY, RUNNING D5NS TKO AT 5 ML/HR. RIJ CARLITOS CATHETER WITH PIGTAIL IN PLACE, DRESSING CLEAN AND DRY. RIJ CARLITOS IN PLACE WITH PIGTAIL HANGING, DRESSING CLEAN, DRY AND INTACT. MCCLAIN IN PLACE, RUNNING WITH GRAVITY, YELLOW URINE IN BAG NOTED. OG-TUBE IN PLACE, RUNNING NEPRO AT 10 ML/HR, WATER FLUSH 100 ML/Q4H. PILLOWS, HEEL PROTECTORS USED TO OFFLOAD PRESSURE. ENHANCED DROPLET ISOLATION MAINTAINED. PAPER [place] MACHINE OPERATOR AND PULSE OXIMETER IN PLACE. SAFETY MEASURES IN PLACE. HOB ELEVATED 35 DEGREE, BED IN LOW POSITION, AND BED LOCKED. WILL CONTINUE TO MONITOR. Addendum: 02/11/21 at 0745 by Camilla Delvalle RN RN IGNORE ABOVE NOTE.
--- NOTE | 2021-02-11 07:15 | NUR ---
RECEIVED REPORT FROM [facility] NURSE SHOLA RN, FOR CONTINUITY OF CARE. PATIENT IS RASS -3, FLACC 0, DRY WEIGHT IS 93 KG, RESPIRATION EVEN, UNLABORED ON ETT TO VENT, AC/VC FIO2 45%, RATE 24, PEEP 8, TD 350, SPO2 97%. IV ON ON ISIDRO PICC LINE IN PLACE, DRESSING CLEAN AND DRY, RUNNING NS TKO AT 10 ML/HR, PROPOFOL AT 30MCG/KG/MIN, AND FENTANYL AT 1MCG/KG/HR. RIJ CARLITOS CATHETER WITH PIGTAIL IN PLACE, DRESSING CLEAN AND DRY. RIJ CARLITOS IN PLACE WITH PIGTAIL HANGING, DRESSING CLEAN, DRY AND INTACT. MCCLAIN IN PLACE, RUNNING WITH GRAVITY, YELLOW URINE IN BAG NOTED. OG-TUBE IN PLACE, RUNNING NEPRO AT 10 ML/HR, WATER FLUSH 100 ML/Q4H. PILLOWS, HEEL PROTECTORS USED TO OFFLOAD PRESSURE. ENHANCED DROPLET ISOLATION MAINTAINED. [place] KNITTER AND PULSE OXIMETER IN PLACE. SAFETY MEASURES IN PLACE. HOB ELEVATED 35 DEGREE, BED IN LOW POSITION, AND BED LOCKED. WILL CONTINUE TO MONITOR.
--- NOTE | 2021-02-11 07:50 | NUR ---
RECEIVED ON A [employer]APE R860 VENTILATOR PLUGGED INTO RED OUTLET TOLERATING WELL WITHOUT COMPLICATIONS NOTED TO A ENDOTRACHEAL TUBE #8.0 SECURED AT 21cm TEETH/GUM LINE WITH AN ANCHOR FAST CUFF PRESSURE CHECKED NOTED AMBU BAG NOTED AT BEDSIDE LOC SEDATED RESTING COMFORTABLY GOOD CHEST RISE ENDOTRACHEAL SUCTION FOR SMALL THICK YELLOW WITH BROWN TINGE SECRETIONS AIRWAY PATENT INCREASED Vt TO 400ml VTe LESS THAN 6ml/kg (400ml) IBW 6ml/kg = 410ml MARIVEL/RN NOTIFIED
--- NOTE | 2021-02-11 07:50 | NUR ---
[facility] NURSE ON FLOOR, LABS AND ORDER PRINTED, WILL BEGIN DIALYSIS, WILL HOLD MEDS UNTIL POST DIALYSIS, WILL CONTINUE TO MONITOR. Addendum: 02/11/21 at 0904 by Camilla Delvalle RN RN IGNORE ABOVE NOTE.
[2021-02-11 08:07] LABS: HEPATITIS A ANTIBODY IGM Negative (Negative); HEPATITIS B CORE AB TOTAL Negative (Negative); HEPATITIS B SURFACE ANTIBODY Non Reactive (.); HEPATITIS B SURFACE ANTIGEN Negative (Negative)
[2021-02-11] MEDS: ATORVASTATIN 80 MG TAB PO SCH (08:09)
[2021-02-11] MEDS: ZINC SULF 220 MG CAP PO SCH (08:10)
[2021-02-11] MEDS: ASPIRIN 81 MG TAB.CHEW PO SCH (08:10)
[2021-02-11] MEDS: ASCORBIC ACID 500 MG TAB PO SCH (08:10)
[2021-02-11] MEDS: DOCUSATE 100 MG/10 ML UDC GT SCH ×2 (08:11→21:59)
[2021-02-11] MEDS: POLYETHYLENE GLYCOL 17 GM/PKT GT SCH (08:11)
[2021-02-11] MEDS: METOPROLOL 25 MG TAB PO SCH ×2 (08:11→22:00)
[2021-02-11] MEDS: DEXAMETHASONE 4 MG/ML VIAL IVP SCH (08:13)
[2021-02-11] MEDS: PANTOPRAZOLE 40 MG INJ VIAL IVP SCH (08:13)
--- NOTE | 2021-02-11 08:15 | NUR ---
CHECKED RESIDUAL, 150. AUSCULTATE FOR POSITION OF OG-TUBE. OGT IN PLACE. ADMINISTERED AM MEDS. FLUSHED AFTER. PROVIDED VAP ORAL CARE, HYGIENE CARE, MCCLAIN CARE AND CHG BATH. SWAT TEAM MEMBER AND PULSE OXIMETER IN PLACE. BED AT 30 DEGREES. SAFETY MEASURES IN PLACE. BED IN LOW POSITION AND LOCKED. WILL CONTINUE TO MONITOR.
--- NOTE | 2021-02-11 10:04 | NUR ---
RESTING COMFORTABLY EQUAL CHEST RISE AIRWAY PATENT
--- NOTE | 2021-02-11 10:44 | NUR ---
START A NEW BOTTLE OF PROPOFOL, CONTINUED AT 30MCG/KG/MIN. PRIMED NEW TUBING. WILL CONTINUE TO MONITOR.
--- NOTE | 2021-02-11 11:33 | NUR ---
SEDATED STABLE EQUAL CHEST RISE ENDOTRACHEAL SUCTION FOR MODERATE THIN PALE YELLOW SECRETIONS AIRWAY PATENT HEMODIALYSIS IN PROGRESS
--- NOTE | 2021-02-11 11:42 | NUR ---
ATTEMPTED TO SEE PATIENT FOR PHYSICAL THERAPY TREATMENT HOWEVER PATIENT CONTINUES TO BE INTUBATED AND SEDATED; UNABLE TO PARTICIPATE. WILL FOLLOW UP IF APPROPRIATE; RN AWARE.
--- NOTE | 2021-02-11 12:00 | NUR ---
CHECKED PATIENT BLOOD SUGAR, 284, COVERED WITH 6 UNITS HUMALOG PER MD SLIDING SCALE. WILL CONTINUE TO MONITOR.
--- NOTE | 2021-02-11 13:33 | NUR ---
CHECKED ON PATIENT. RASS -3. FLACC 0. WILL CONTINUE TO MONITOR.
[2021-02-11] MEDS: fentaNYL citrate - 50mL vial 2.5 MG in NACL 0.9% 200 ML IV PRN (13:47)
--- NOTE | 2021-02-11 13:57 | NUR ---
DR. VIVEK BERRIOS. UPDATED ON PATIENT'S CONDITION AND STATUS. AWARE THAT PATIENT MAY BE DOWNGRADED PENDING ON DIRECT CARE WORKER. Addendum: 02/11/21 at 1359 by Camilla Delvalle RN RN IGNORE ABOVE NOTE. INCORRECT PATIENT.
--- NOTE | 2021-02-11 14:00 | NUR ---
DR. HARRY BERRIOS. UPDATED ON PATIENT'S CONDITION AND STATUS.
--- NOTE | 2021-02-11 14:24 | NUR ---
STABLE REMAINS SEDATED GOOD CHEST RISE AND AERATION THROUGHOUT BILATERAL LUNG SANTOS AIRWAY PATENT DURING HHN THERAPY AND HEMODIALYSIS SYSTOLIC PRESSURE DESCENDED TO 93mmHg DECREASED PEEP TO 5cmH2O SATURATION 98% ON FIO2 OF 45% PEEP OF 5cmH2O POST HHN THERAPY TITRATED FIO2 TO 40% MARIVEL/RN NOTIFIED
[2021-02-11] MEDS: EPOETIN ALFA-EPBX 10,000 UNITS/ML VIAL IV SCH (15:14)
--- NOTE | 2021-02-11 15:35 | NUR ---
DR. TANNER BERRIOS. UPDATED ON PATIENT STATUS AND CONDITION. WILL CONTINUE TO MONITOR.
--- NOTE | 2021-02-11 16:49 | NUR ---
SEDATED GOOD CHEST RISE AND AERATION THROUGHOUT BILATERAL LUNG SANTOS AIRWAY PATENT MARIVEL/RN NOTIFIED OF INCREASED Vt
--- NOTE | 2021-02-11 17:58 | NUR ---
PATIENT'S SON ANDREEA PERRY CALLED, UPDATED ON PATIENT'S STATUS AND CONDITION. ANSWERED ALL OF THE SONS QUESTIONS. WILL CONTINUE TO MONITOR. WILL ENDORSE TO RESIDENT PROGRAMS ASSISTANT NURSE.
--- NOTE | 2021-02-11 19:05 | NUR ---
ENDORSED CARE TO FACTORY REPRESENTATIVE NURSE, KEO LINTON, FOR CONTINUITY OF CARE.
--- NOTE | 2021-02-11 19:22 | NUR ---
PT SEEN AND ASSESSED. RECEIVED INTUBATED PT ON VENTILATOR SUPPORT. ETT SIZE 8.0 AND SECURED WITH ANCHOR-FAST @ 21cm TEETH. VENT SETTINGS: AC/VC RR 24, VT 450, PEEP 5, FiO2 40%. SPO2 99%. ALARMS SET AND FUNCTIONING. VENT PLUGGED IN RED OUTLET. AMBU BAG AT BEDSIDE. AUSCULTATION REVEALS BILATERAL CLEAR BREATH SOUNDS. SUCTION SMALL WHITE YELLOW THICK SECRETIONS. PT IS IN NO RESPIRATORY DISTRESS. HHN TX GIVEN AND PT TOLERATED TX WELL. NO ADVERSE REACTION. WILL CONTINUE TO MONITOR PT.
--- NOTE | 2021-02-11 20:05 | NUR ---
RECEIVED REPORT FROM [facility] NURSE. PT ETT TO VENT, ACVC FI02 40%, TV 450, RATE 24, PEEP 5. SIZE [address],NEPRO @ 40ML/HR. LUNG SOUNDS CLEAR, EQUAL CHEST RISE AND FALL. DIMINISHED AT BILATERAL BASES. RIJ CARLITOS CATH WITH PIGTAIL IN PLACE, DRESSING DRY AND INTACT. ISIDRO PICC IN PLACE, PROPOFOL @ 20MCG/KG/MIN, FENTANYL 1.5 MCG/KG/MIN. DRY WT. 93.89 KG. RASS -3, PT WITHDRAWS TO PAIN, OPENS EYES TO PAIN. PERRL 3MM. IVF TKO. RIGHT FA 20G, SL. ABDOMEN LARGE, SOFT AND NONTENDER. BOWEL SOUNDS ACTIVE. MCCLAIN CATHETER IN PLACE, DRAINING BY GRAVITY, YELLOW URINE NOTED. LEFT BKA. SKIN WARM AND DRY, INTACT, AFEBRILE. BILATERAL SOFT WRIST RESTRAINTS IN PLACE, NO INJURIES NOTED, CAP REFILL LESS THAN 3 SECONDS. QUICK RELEASE KNOTS. FLACC 0. HOB 30 DEGREES, SIDE RAILS UP, BED LOCKED AND IN LOWEST POSITION. DROPLET/CONTACT PRECAUTIONS IN PLACE. WILL CONTINUE TO MONITOR.
[2021-02-11] MEDS: CHLORHEXADINE GLUC 2% CLOTH TP SCH (20:40)
[2021-02-11] MEDS: MUPIROCIN CA NASAL 2% 1GM TUBE NS SCH (20:50)
[2021-02-11] MEDS: INSULIN LANTUS 100 UNITS/ML 10 ML VIAL SUBQ SCH (21:00)
--- NOTE | 2021-02-11 21:40 | NUR ---
CONFIRMED OGT PLACEMENT VIA AUSCULTATION. GASTRIC RESIDUALS OVER 400ML. HELD FEEDING AT THIS TIME. ADMINISTERED ALL MEDS. TURNED AND REPOSITIONED. PROVIDED ORAL CARE.
--- NOTE | 2021-02-11 23:25 | NUR ---
NO SIGNS OF DISTRESS. FLACC 0. EYES CLOSED, OPENS EYES TO PAIN, RASS -3. SAFETY MEASURES IN PLACE, SKIN AND CIRCULATION AT RESTRAINTS INTACT, WITHIN RANGE. WILL CONTINUE TO MONITOR.
[2021-02-12] VITALS (35 sets, daily range): BP systolic 127–171; BP diastolic 47–85
[2021-02-12] MEDS: ALBUTEROL SULFATE/IPRATROPIU 3 ML SOL IH SCH ×4 (00:58→19:33)
--- NOTE | 2021-02-12 00:59 | NUR ---
PT IS IN NO RESPIRATORY DISTRESS. HHN TX GIVEN AND PT TOLERATED TX WELL. NO ADVERSE REACTION. WILL CONTINUE TO MONITOR PT.
--- NOTE | 2021-02-12 01:05 | NUR ---
ORAL CARE PROVIDED, PT WITHDRAWING TO CLEANING. OFFLOADED PRESSURE AREAS. CHECKED GASTRIC RESIDUALS, OVER 350ML, CONTINUE TO KEEP FEEDING OFF. HOB 30 DEGREES, SIDE RAILS UP, BED LOCKED AND IN LOWEST POSITION.
--- NOTE | 2021-02-12 03:44 | NUR ---
NO SIGNS OF DISTRESS, EQUAL CHEST RISE AND FALL. ALL VITAL SIGNS STABLE. SAFETY MEASURES IN PLACE.
[2021-02-12 05:41] LABS: HEMATOCRIT 25.7 % (36-48); HEMOGLOBIN 8.5 g/dL (12.0-16.0); MEAN CORPUSCULAR HEMOGLOBIN 29 pg (27-31); MEAN CORPUSCULAR HGB CONC 33 g/dL (33-37); PLATELET COUNT (AUTO) 281 K/uL (140-450); RED BLOOD CELL COUNT(AUTO) 2.95 MIL/uL (4.20-5.40); RED CELL DISTRIBUTION WIDTH 14.1 % (11.6-13.7); WHITE BLOOD COUNT (AUTO) 12.6 K/uL (4.8-10.8)
[2021-02-12 06:08] LABS: ANION GAP 17.6 (8-16); CARBON DIOXIDE 23.5 mmol/L (21-32); POTASSIUM 4.1 mmol/L (3.5-5.1)
[2021-02-12 06:17] LABS: CREATININE 4.7 mg/dL (0.6-1.3)
[2021-02-12] MEDS: PROPOFOL 1000 MG/100 ML PREMIX 100 ML IV PRN ×3 (06:28→22:58)
[2021-02-12 06:38] LABS: LYMPHOCYTES % (MANUAL) 8 % (20-46); MONOCYTES % (MANUAL) 3 % (5-12)
[2021-02-12] MEDS: INSULIN LISPRO SLIDING SCALE 100 UNITS/ML VIAL SUBQ PRN ×4 (06:40→22:18)
[2021-02-12] MEDS: BLOOD GLUCOSE MONITORING 1 DEV DEV FS SCH ×4 (06:40→21:00)
--- NOTE | 2021-02-12 07:15 | NUR ---
RECEIVED HANDOFF FROM HVAC R INSTRUCTOR ROYER CROWLEY. PT IS RASS -3. PT IS ETT TO VENT ACVC FIO2 40%, VT 450, R 24, PEEP 5, SATURATING WELL, RESPIRATIONS EVEN AND UNLABORED. PT IS CURRENTLY SR/ST ON MONITOR. FOR ACCESS PT HAS ISIDRO PICC LINE, R FA 20 G, AND R IJ CARLITOS CATHETER WITH PIGTAIL. FENTANYL IS RUNNING AT 1.5 MCG/KG/HR, PROPOFOL AT 20 MCG/KG/MIN, AND IVF TKO. PT HAS OG TUBE TO FEED WITH NEPRO AT 40 ML/HR AND FWF 100 ML Q 4HR, BUT FEEDING HAS BEEN HELD PER HVAC R INSTRUCTOR DUE TO HIGH RESIDUAL OVER 300 ML. MCCLAIN CATHETER IS IN PLACE, BUT WITH MINIMAL OUTPUT. HOB IS 30 DEG WITH BED IN LOW, LOCKED POSITION. SAFETY MEASURES IN PLACE.
--- NOTE | 2021-02-12 07:15 | NUR ---
RECEIVED ON A [employer] DataSCAPE R860 VENTILATOR PLUGGED INTO RED OUTLET TOLERATING WELL WITHOUT ADVERSE REACTIONS NOTED TO AN ENDOTRACHEAL TUBE #8.0 SECURED AT 21cm TEETH/GUM LINE WITH AN ANCHOR FAST CUFF PRESSURE CHECKED NOTED AMBU BAG AT BEDSIDE LOC SEDATED GOOD CHEST RISE ENDOTRACHEAL SUCTIN FOR SMALL SEMI THICK YELLOW WITH BROWN TINGE SECRETIONS AIRWAY PATENT
--- NOTE | 2021-02-12 07:15 | NUR ---
RECEIVED ON A [employer] BSCAPE R860 VENTILATOR PLUGGED INTO RED OUTLET TOLERATING WELL WITHOUT ADVERSE REACTIONS NOTED TO AN ENDOTRACHEAL TUBE #8.0 SECURED AT 21cm TEETH/GUM LINE WITH AN ANCHOR FAST CUFF PRESSURE CHECKED NOTED LOC SEDATED RESTING COMFORTABLY GOOD CHEST RISE ENDOTRACHEAL SUCTION FOR SMALL SEMI THICK YELLOW WITH BROWN TINGE SECRETIONS AIRWAY PATENT
[2021-02-12] MEDS: PANTOPRAZOLE 40 MG INJ VIAL IVP SCH (08:04)
[2021-02-12] MEDS: ZINC SULF 220 MG CAP PO SCH (08:04)
[2021-02-12] MEDS: DOCUSATE 100 MG/10 ML UDC GT SCH ×2 (08:04→21:19)
[2021-02-12] MEDS: ASCORBIC ACID 500 MG TAB PO SCH (08:04)
[2021-02-12] MEDS: POLYETHYLENE GLYCOL 17 GM/PKT GT SCH (08:04)
[2021-02-12] MEDS: ATORVASTATIN 80 MG TAB PO SCH (08:05)
[2021-02-12] MEDS: METOPROLOL 25 MG TAB PO SCH ×2 (08:05→21:22)
[2021-02-12] MEDS: ASPIRIN 81 MG TAB.CHEW PO SCH (08:05)
[2021-02-12] MEDS: DEXAMETHASONE 4 MG/ML VIAL IVP SCH (08:05)
--- NOTE | 2021-02-12 08:15 | NUR ---
DR. GARCIA SEEING PT, MADE AWARE OF PT'S STATUS. PER DR. GARCIA, OKAY TO START CPAP TRIALS PENDING DRAWER IN STITCH BONDING MACHINE'S APPROVAL
[2021-02-12] MEDS: fentaNYL citrate - 50mL vial 2.5 MG in NACL 0.9% 200 ML IV PRN (09:07)
--- NOTE | 2021-02-12 09:08 | NUR ---
ATTEMPTED TO SEE PATIENT FOR PHYSICAL THERAPY TREATMENT HOWEVER PATIENT REMAINS SEDATED AND INTUBATED. NO CHANGE IN CONDITION; WILL FOLLOW UP TOMORROW IF APPROPRIATE. RN AWARE.
--- NOTE | 2021-02-12 09:10 | NUR ---
MEDICATIONS ADMINISTERED PER ORDER, PT TOLERATED WELL. AUSCULTATED TO CONFIRM PLACEMENT OF OG TUBE, 300 ML RESIDUAL FROM TUBE FEED NOTED, FEEDING HELD STILL. VAP ORAL CARE, CHG BATH, AND MCCLAIN CARE PROVIDED. TEMPERATURE 98.5 TEMPORALLY. PT REPOSITIONED, BONY PROMINENCES OFF LOADED WITH PILLOWS TO PROMOTE SKIN INTEGRITY. WILL CONTINUE TO MONITOR.
--- NOTE | 2021-02-12 09:40 | NUR ---
SPOKE TO SON ANDREEA AND PROVIDED UPDATE ON PT'S STATUS, ANSWERED SON'S QUESTIONS
--- NOTE | 2021-02-12 10:43 | NUR ---
DR. PAULINO SEEING PT. PER DR. PAULINO HD ORDER IS SUPPOSED TO BE FOR TOMORROW, NOT TODAY, AND HE WILL CHANGE THE DATE ON THE COMPUTER
--- NOTE | 2021-02-12 11:45 | NUR ---
BS 241, 4 UNITS OF INSULIN ADMINISTERED PER SLIDING SCALE. TEMPERATURE 99.0 TEMPORALLY. VAP ORAL CARE PROVIDED. PT REPOSITIONED AND OFF LOADED WITH PILLOWS FOR OPTIMAL SKIN INTEGRITY.
--- NOTE | 2021-02-12 11:50 | NUR ---
SEDATED RESTING COMFORTABLY EQUAL CHEST RISE ENDOTRACHEAL SUCTION FOR MODERATE THICK YELLOW WITH BROWN TINGE SECRETIONS AIRWAY PATENT
--- NOTE | 2021-02-12 12:11 | NUR ---
DR. HART SEEING PT, PER DR. HART, CAN ATTEMPT CPAP TOMORROW.
--- NOTE | 2021-02-12 13:28 | NUR ---
RESTING COMFORTABLY EQUAL CHEST RISE ENDOTRACHEAL SUCTION FOR LARGE THICK YELLOW WITH BROWN TINGE SECRETIONS AIRWAY PATENT SATURATION 96% ON FIO2 OF 40% PEEP 5cmH2O POST HHN THERAPY TITRATED FIO2 TO 35% BRENDA/RN NOTIFIED
--- NOTE | 2021-02-12 14:00 | NUR ---
PER ABELARDO BARROSO, OKAY TO RESTART TUBE FEEDING AT 10 ML/HR DESPITE HIGH RESIDUALS. TUBE FEED STARTED.
--- NOTE | 2021-02-12 14:14 | NUR ---
HANDOFF GIVEN TO CHRISTINE LINTON FOR CONTINUITY OF CARE.
--- NOTE | 2021-02-12 14:16 | NUR ---
RECEIVED BEDSIDE REPORT FROM BRENDA LINTON FOR CONTINUITY OF CARE. PATIENT IS SEDATED TO RASS -3, DRY WEIGHT 93.89 KG, RESPIRATION EVEN, UNLABORED, DIMINISHED UPON AUSCULTATION, ETT TO VENT, AC/VC FIO2 35%, RATE 24, VT 450, PEEP 5, SPO2 95% AT THIS TIME. FLACC 0, PUPILS SLUGGISH, REACT TO LIGHT. RFA 20G, SALINE LOCK; RIJ CARLITOS CATH WITH PIGTAIL, CLEAN AND DRY, ISIDRO PICC, RUNNING FENTANYL 1.5 MCG/KG/HR, 20 MCG/KG/MIN, AND IVF 10 ML/HR TKO. OGT IN PLACE, RUNNING NEPRO 10 ML/HR, WATER FLUSH 100 ML/Q4H. SKIN CLEAN, DRY, WARM TO TOUCH. MCCLAIN IN PLACE, DRAINING WITH GRAVITY, MINIMAL YELLOW URINE IN BAG NOTED. BILATERAL SOFT WRIST RESTRAINTS IN PLACE, NO SIGNS OF INJURY OR SKIN BREAK DOWN. PILLOWS USED TO OFFLOAD PRESSURE, HEEL PROTECTORS IN PLACE. DROPLET AND CONTACT PRECAUTION IN PLACE. SAFETY MEASURES IN PLACE. HOB ELEVATED 35 DEGREE, BED IN LOW POSITION, AND BED LOCKED.
--- NOTE | 2021-02-12 14:55 | NUR ---
STARTED A NEW BOTTLE OF PROPOFOL, CHANGED TO NEW TUBINGS, CONTINUE RUNNING AT 20 MCG/KG/MIN. PATIENT IS POSITIONED COMFORTABLY ON BED, RASS -3, FLACC 0. PROVIDED ORAL CARE, AND SUCTIONING. PILLOWS USED TO OFFLOAD PRESSURE, HEEL PROTECTORS IN PLACE. RELEASED SOFT WRIST RESTRAINTS, AND PERFORMED ROM, PATIENT TOLERATED FAIR. REAPPLIED SOFT WRIST RESTRAINTS, INTACT AND SECURED. HOB ELEVATED 35 DEGREE, BED IN LOW POSITION, AND BED LOCKED.
--- NOTE | 2021-02-12 15:24 | NUR ---
02/12/21 RD FOLLOW UP COMPLETED PLEASE REFER TO NUTRITION ASSESSMENT UNDER CARE ACTIVITY FOR ESTIMATED NUTRITIONAL NEEDS. 1. RESTART TUBE FEEDING AT A LOW RATE, NEPHRO 1.8 @ 10 ML/HR AND INCREASE BY 10 ML/HR Q2H UNTIL GOAL IS REACHED AT 40 ML/HR -THIS IS MEETING 1728 KCAL AND 78 GM PROTEIN/DAY. THIS IS MEETING 100% OF ESTIMATED KCAL NEEDS AND >85% OF PROTEIN NEEDS 2. RECOMMEND PROSOURCE ONCE DAILY TO PROVIDE AN ADDITIONAL 15 GM OF PROTEIN AND 60 KCAL. 3. CONTINUE FREE WATER FLUSH OF 100 ML Q4H OR PER MD 4. RD TO FOLLOW-UP 2-3 DAYS, HIGH RISK DHARMESH SAUCEDO, ABELARDO
--- NOTE | 2021-02-12 16:13 | NUR ---
STABLE SEDATED EQUAL CHEST RISE AIRWAY PATENT
--- NOTE | 2021-02-12 16:56 | NUR ---
CHECKED BLOOD GLUCOSE RECEIVED 203, 4 UNIT HUMALOG GIVEN. CHECKED OGT RESIDUAL RECEIVED 85 ML WHITE BROWN RESIDUAL, INCREASED OGT FEEDING TO 20 ML/HR. WITH ASSIST, REPOSITIONED PATIENT, PILLOWS USED TO OFFLOAD PRESSURE, HEEL PROTECTORS IN PLACE. SAFETY MEASURES IN PLACE.
--- NOTE | 2021-02-12 17:20 | NUR ---
RECEIVED A CALL FROM SON ANDREEA, UPDATED BRAIN WITH PATIENT'S CURRENT CONDITION AND ANSWERED ALL ANDREEA'S QUESTIONS, ANDREEA WAS AWARE OF CURRENT CONDITION AND PLAN OF CARE.
--- NOTE | 2021-02-12 17:22 | NUR ---
RESTING WELL EQUAL CHEST RISE ENDOTRACHEAL SUCTION FOR SMALL THIN YELLOW TO HAZY SECRETIONS AIRWAY PATENT
--- NOTE | 2021-02-12 19:30 | NUR ---
PT SEEN AND ASSESSED. RECEIVED INTUBATED PT ON VENTILATOR SUPPORT. ETT SIZE 8.0 AND SECURED WITH ANCHOR-FAST @ 21cm TEETH. VENT SETTINGS: AC/VC RR 24, VT 450, PEEP 5, FiO2 35%. SPO2 98%. ALARMS SET AND FUNCTIONING. VENT PLUGGED IN RED OUTLET. AMBU BAG AT BEDSIDE. AUSCULTATION REVEALS BILATERAL CLEAR BREATH SOUNDS. SUCTION SMALL WHITE YELLOW THICK SECRETIONS. PT IS IN NO RESPIRATORY DISTRESS. HHN TX GIVEN AND PT TOLERATED TX WELL. NO ADVERSE REACTION. WILL CONTINUE TO MONITOR PT.
--- NOTE | 2021-02-12 19:42 | NUR ---
RECEIVED REPORT FROM [facility] NURSE. PT ETT TO VENT, ACVC FI02 35%, TV 450, RATE 24, PEEP 5. SIZE [address],NEPRO @ 20ML/HR. LUNG SOUNDS CLEAR, EQUAL CHEST RISE AND FALL. DIMINISHED AT BILATERAL BASES. RIJ CARLITOS CATH WITH PIGTAIL IN PLACE, DRESSING DRY AND INTACT. ISIDRO PICC IN PLACE, PROPOFOL @ 20MCG/KG/MIN, FENTANYL 1.5 MCG/KG/MIN. DRY WT. 93.89 KG. RASS -3, PT WITHDRAWS TO PAIN, OPENS EYES TO PAIN. PERRL 3MM. IVF TKO. RIGHT FA 20G, SL. ABDOMEN LARGE, SOFT AND NONTENDER. BOWEL SOUNDS ACTIVE. MCCLAIN CATHETER IN PLACE, DRAINING BY GRAVITY, YELLOW URINE NOTED. LEFT BKA. SKIN WARM AND DRY, INTACT, AFEBRILE. BILATERAL SOFT WRIST RESTRAINTS IN PLACE, NO INJURIES NOTED, CAP REFILL LESS THAN 3 SECONDS. QUICK RELEASE KNOTS. FLACC 0. HOB 30 DEGREES, SIDE RAILS UP, BED LOCKED AND IN LOWEST POSITION. DROPLET/CONTACT PRECAUTIONS IN PLACE. WILL CONTINUE TO MONITOR.
[2021-02-12] MEDS: INSULIN LANTUS 100 UNITS/ML 10 ML VIAL SUBQ SCH (21:00)
[2021-02-12] MEDS: LEVOFLOXACIN 500 MG/D5W PREMIX 100 ML IV SCH (21:19)
--- NOTE | 2021-02-12 21:40 | NUR ---
CONFIRMED OGT PLACEMENT VIA AUSCULTATION. RESIDUALS 100ML. ADMINISTERED ALL MEDS. PROVIDED ORAL CARE. PT HAS EYES OPEN TO TOUCH. SKIN AT RESTRAINTS HAS GOOD CIRCULATION, NO INJURIES NOTED. TURNED AND REPOSITIONED. INCREASED TUBE FEEDING TO 30 ML/HR. SAFETY MEASURES IN PLACE.
--- NOTE | 2021-02-12 23:40 | NUR ---
ALL VSS. FLACC 0. PRESSURE AREAS ARE OFFLOADED. HOB 30 DEGREES, BED LOCKED AND IN LOWEST POSITION.
[2021-02-13] VITALS (35 sets, daily range): BP systolic 100–179; BP diastolic 45–94
[2021-02-13] MEDS: ALBUTEROL SULFATE/IPRATROPIU 3 ML SOL IH SCH ×4 (01:20→19:35)
--- NOTE | 2021-02-13 02:04 | NUR ---
CALLED TO BEDSIDE DUE TO PT DESATURATING 80s. SUCTIONED SMALL YELLOW WHITE THICK SECRETIONS. CHANGED PROBE POSITION. SPO2 IMPROVED TO 94%. WILL CONTINUE TO MONITOR PT.
--- NOTE | 2021-02-13 04:11 | NUR ---
CHECKED GASTRIC RESIDUALS, 180ML. CONTINUE FEEDING AT 30ML/HR. WILL ENDORSE TO DAYSHIFT NURSE TO TITRATE TOLERATED.
[2021-02-13] MEDS: fentaNYL citrate - 50mL vial 2.5 MG in NACL 0.9% 200 ML IV PRN ×2 (05:00→21:44)
[2021-02-13] MEDS: PROPOFOL 1000 MG/100 ML PREMIX 100 ML IV PRN ×3 (05:22→20:08)
--- NOTE | 2021-02-13 05:33 | NUR ---
SPONGE BATH, MCCLAIN CARE, AND ORAL CARE PROVIDED. RELEASED RESTRAINTS. PT REACHES FOR ETT. PT HAS EYES OPEN AND BITING ON ETT. FLACC 0. HOB 30 DEGREES, SIDE RAILS UP, BED LOCKED AND IN LOWEST POSITION.
[2021-02-13 05:38] LABS: BASOPHILS % (AUTO) 0.1 % (0.0-2.0); EOSINOPHILS # (AUTO) 0.2 K/uL (0-0.4); HEMATOCRIT 23.1 % (36-48); HEMOGLOBIN 7.8 g/dL (12.0-16.0); LYMPHOCYTES % (AUTO) 8.8 % (20.5-51.1); MEAN CORPUSCULAR HEMOGLOBIN 29 pg (27-31); MEAN CORPUSCULAR HGB CONC 34 g/dL (33-37); MEAN CORPUSCULAR VOLUME 86.1 fL (80-94); MONOCYTES # (AUTO) 0.2 K/uL (0.8-1.0); MONOCYTES % (AUTO) 1.8 % (1.7-9.3); NEUTROPHILS # (AUTO) 9.8 K/uL (1.8-7.7); NEUTROPHILS % (AUTO) 87.3 % (42.2-75.2); PLATELET COUNT (AUTO) 227 K/uL (140-450); RED BLOOD CELL COUNT(AUTO) 2.68 MIL/uL (4.20-5.40); RED CELL DISTRIBUTION WIDTH 13.9 % (11.6-13.7); WHITE BLOOD COUNT (AUTO) 11.3 K/uL (4.8-10.8)
[2021-02-13 05:52] LABS: ANION GAP 17.6 (8-16); CARBON DIOXIDE 22.4 mmol/L (21-32)
[2021-02-13 06:13] LABS: CREATININE 6.1 mg/dL (0.6-1.3)
[2021-02-13] MEDS: INSULIN LISPRO SLIDING SCALE 100 UNITS/ML VIAL SUBQ PRN ×4 (06:29→20:02)
[2021-02-13] MEDS: BLOOD GLUCOSE MONITORING 1 DEV DEV FS SCH ×4 (06:31→20:04)
--- NOTE | 2021-02-13 07:20 | NUR ---
RECEIVED BEDSIDE REPORT FROM ACCOUNT SERVICES SPECIALIST RN KEO FOR CONTINUITY OF CARE. PATIENT IS SEDATED TO RASS -3, DRY WEIGHT 93.89 KG, POSITIONED COMFORTABLY ON BED. RESPIRATION EVEN, UNLABORED, DIMINISHED UPON AUSCULTATION, ETT TO VENT, AC/VC FIO2 45%, RATE 24, VT 450, PEEP 5, SPO2 95% AT THIS TIME. FLACC 0. RFA 20G, SALINE LOCK; RIJ CARLITOS CATH WITH PIGTAIL, CLEAN AND DRY, ISIDRO PICC, RUNNING FENTANYL 1.5 MCG/KG/HR, 20 MCG/KG/MIN, AND IVF 10 ML/HR TKO. OGT IN PLACE, RUNNING NEPRO 30 ML/HR, WATER FLUSH 100 ML/Q4H, RESIDUAL CHECKED, RECEIVED 130 ML. SKIN CLEAN, DRY, WARM TO TOUCH. MCCLAIN IN PLACE, DRAINING WITH GRAVITY, MINIMAL YELLOW URINE IN BAG NOTED. BILATERAL SOFT WRIST RESTRAINTS IN PLACE, NO SIGNS OF INJURY OR SKIN BREAK DOWN. PILLOWS USED TO OFFLOAD PRESSURE, HEEL PROTECTORS IN PLACE. DROPLET AND CONTACT PRECAUTION IN PLACE. SAFETY MEASURES IN PLACE. HOB ELEVATED 35 DEGREE, BED IN LOW POSITION, AND BED LOCKED.
--- NOTE | 2021-02-13 07:23 | NUR ---
DIALYSIS LYNETTE RN IS AT BEDSIDE GETTING PATIENT READY FOR HD.
--- NOTE | 2021-02-13 08:24 | NUR ---
RECEIVED A CALL FROM AKIL THE DAUGHTER [phone], UPDATED HER WITH PATIENT'S CURRENT CONDITION, ANSWERED ALL HER QUESTIONS, AKIL IS AWARE THAT PATIENT IS IN DIALYSIS AT THIS TIME BEING CLOSELY MONITORING IN ICU, ON VENTILATOR, AC/VC FIO2 45% AT THIS TIME.
[2021-02-13] MEDS: ZINC SULF 220 MG CAP PO SCH (08:29)
[2021-02-13] MEDS: ASPIRIN 81 MG TAB.CHEW PO SCH (08:29)
[2021-02-13] MEDS: ATORVASTATIN 80 MG TAB PO SCH (08:29)
[2021-02-13] MEDS: ASCORBIC ACID 500 MG TAB PO SCH (08:29)
[2021-02-13] MEDS: DEXAMETHASONE 4 MG/ML VIAL IVP SCH (08:30)
[2021-02-13] MEDS: PANTOPRAZOLE 40 MG INJ VIAL IVP SCH (08:30)
[2021-02-13] MEDS: POLYETHYLENE GLYCOL 17 GM/PKT GT SCH (08:30)
[2021-02-13] MEDS: DOCUSATE 100 MG/10 ML UDC GT SCH ×2 (08:30→20:04)
--- NOTE | 2021-02-13 08:52 | NUR ---
CHECKED OGT PRIOR TO MEDS ADMINISTRATION, RECEIVED 100 ML WHITE CREAMY LIQUID, FLUSHED. ADMINISTERED SCHEDULED MEDS PER MD ORDER, WILL ADMINISTER METOPROLOL AND EPOETIN AFTER HD, FLUSHED BEFORE AND AFTER MEDS. PROVIDED AM HYGIENE CARE, ORAL CARE, MCCLAIN CARE. RELEASED SOFT WRISTS RESTRAINTS TO PERFORM ROM, NO SIGNS OF INJURY, REAPPLIED RESTRAINTS, SECURED AND INTACT. OGT FEEDING NEPRO CONTINUE RUNNING AT 30 ML/HR AND WATER FLUSH 100 ML/Q4H. PATIENT IS STILL IN HD AND DIALYSIS LYNETTE LINTON IS AT BEDSIDE MONITORING PATIENT CLOSELY. SAFETY MEASURES IN PLACE.
--- NOTE | 2021-02-13 08:55 | NUR ---
DR GARCIA IS ROUNDING ON PATIENT.
[2021-02-13] MEDS: EPOETIN ALFA-EPBX 10,000 UNITS/ML VIAL IV SCH (09:00)
[2021-02-13] MEDS: METOPROLOL 25 MG TAB PO SCH ×2 (09:00→20:04)
--- NOTE | 2021-02-13 10:49 | NUR ---
DIALYSIS COMPLETED, REMOVED 2.6 L. BP 101/20 PULSE 82. ADMINISTERED SCHEDULED MEDS EPOETIN AND METOPROLOL PER MD ORDER. WITH ASSIST, REPOSITIONED PATIENT, PILLOWS PLACED TO OFFLOAD PRESSURE, HEEL PROTECTORS IN PLACE. RELEASED SOFT WRISTS RESTRAINTS TO PERFORM ROM, NO SIGNS OF INJURY, PATIENT TOLERATED FAIR. REAPPLIED RESTRAINTS, INTACT AND SECURED. PROVIDED ORAL CARE. SAFETY MEASURES IN PLACE. BED IN LOW POSITION, HOB ELEVATED 35 DEGREE, AND BED LOCKED.
--- NOTE | 2021-02-13 10:51 | NUR ---
ATTEMPTED TO SEE PATIENT FOR PHYSICAL THERAPY TREATMENT HOWEVER PATIENT CONTINUES TO BE INTUBATED AND SEDATED. NO CHANGES AND IS CURRENTLY RECEIVING DIALYSIS TREATMENT. WILL FOLLOW UP IF APPROPRIATE; RN AWARE.
--- NOTE | 2021-02-13 11:24 | NUR ---
BLOOD GLUCOSE 160, 2 UNITS HUMALOG COVERED. PATIENT IS POSITIONED COMFORTABLY ON BED, SEDATED TO RASS -3, FLACC 0. RESPIRATION, EVEN, UNLABORED ON AC/VC FIO 45@ SPO2 97% AT THIS TIME. NO SIGNS OF ACUTE DISTRESS NOTED. SAFETY MEASURES IN PLACE.
--- NOTE | 2021-02-13 12:38 | NUR ---
STARTED A NEW BOTTLE OF PROPOFOL, CHANGED ALL TUBINGS, CONTINUE RUNNING AT 20 MCG/KG/MIN.
--- NOTE | 2021-02-13 13:55 | NUR ---
ORAL CARE PROVIDED. REPOSITIONED PATIENT, PILLOWS PLACED TO OFFLOAD PRESSURE, PATIENT TOLERATED FAIR. NO SIGNS OF DISTRESS NOTED. SAFETY MEASURES IN PLACE.
[2021-02-13] MEDS ORDERED: PROBIOTIC SCREEN 1 EA MISC MC PRN (14:05)
--- NOTE | 2021-02-13 15:50 | NUR ---
WITH ASSIST, PROVIDED HYGIENE CARE. REPOSITIONED PATIENT, PILLOWS PLACED TO OFFLOAD PRESSURE. RELEASED SOFT WRIST RESTRAINTS AND PERFORM ROM, NO SIGNS OF INJURY. SAFETY MEASURES IN PLACE.
--- NOTE | 2021-02-13 16:00 | NUR ---
DR HART IS ROUNDING ON PATIENT. SAID CPAP TRAIL TOMORROW.
--- NOTE | 2021-02-13 16:28 | NUR ---
BLOOD GLUCOSE 225, 4 UNITS HUMALOG COVERED. PATIENT IS POSITIONED COMFORTABLY ON BED WITH PILLOWS OFFLOAD PRESSURE, SEDATED TO RASS -3, FLACC 0. RESPIRATION, EVEN, UNLABORED ON AC/VC FIO 35%, SPO2 94% AT THIS TIME. NO SIGNS OF ACUTE DISTRESS NOTED. SAFETY MEASURES IN PLACE.
--- NOTE | 2021-02-13 17:12 | NUR ---
DR PRITCHARD IS ROUNDING ON PATIENT.
--- NOTE | 2021-02-13 18:15 | NUR ---
DR AUSTIN IS ROUNDING ON PATIENT.
--- NOTE | 2021-02-13 18:24 | NUR ---
RECEIVED A CALL FROM SON ANDREEA, UPDATED BRAIN WITH PATIENT'S CURRENT CONDITION AND ANSWERED ALL ANDREEA'S QUESTIONS, ANDREEA WAS AWARE OF CURRENT CONDITION AND VITAL SIGNS.
--- NOTE | 2021-02-13 19:30 | NUR ---
RECEIVED BEDSIDE REPORT FROM DAY RN. PATIENT IS SEDATED TO RASS -3, DRY WEIGHT 93.89 KG. RESPIRATION ARE EQUAL AND UNLABORED, DIMINISHED UPON AUSCULTATION, ETT TO VENT, AC/VC FIO2 35% %, RATE 24, VT 450, PEEP 5, SPO2 96% AT THIS TIME. FLACC 0. RIJ CARLITOS CATH WITH PIGTAIL, CLEAN AND DRY, ISIDRO PICC, RUNNING FENTANYL 1.5 MCG/KG/HR, 20 MCG/KG/MIN, AND IVF 10 ML/HR TKO. OGT IN PLACE, RUNNING NEPRO 30 ML/HR, WATER FLUSH 100 ML/Q4H. SKIN CLEAN, DRY, WARM TO TOUCH. MCCLAIN IN PLACE, DRAINING WITH GRAVITY, MINIMAL YELLOW URINE IN BAG NOTED. BILATERAL SOFT WRIST RESTRAINTS IN PLACE, NO SIGNS OF INJURY OR SKIN BREAK DOWN. PILLOWS USED TO OFFLOAD PRESSURE, HEEL PROTECTORS IN PLACE. DROPLET AND CONTACT PRECAUTION IN PLACE. SAFETY MEASURES IN PLACE. HOB ELEVATED 35 DEGREE, BED IN LOW POSITION, AND BED LOCKED. WILL CONTINUE TO MONITOR.
--- NOTE | 2021-02-13 19:36 | NUR ---
RCV'PD PT INTUBATED WITH CHARTED SETTINGS. NO SOB OR DISTRESS NOTED. VENT CONNECTED TO RED OUTLET. ALARMS AUDIBLE. AMBU BAG AT BEDSIDE. HHN TX GIVEN INLINE. PT TOLERATED VERY WELL. DECREASED FIO2 TO 30%. PT TOLERATING WELL. SPO2 97%. WILL CONTINUE TO MONITOR PATIENT.
[2021-02-13] MEDS: INSULIN LANTUS 100 UNITS/ML 10 ML VIAL SUBQ SCH (20:01)
--- NOTE | 2021-02-13 20:04 | NUR ---
OGT PLACEMENT VERIFIED BY AUSCULTATION. PT WITH 130CC OF GASTRIC RESIDUALS. MATTHIEU MEDS CRUSHED AND GIVEN VIA OGT. BLOOD SUGAR 22O COVERAGE GIVEN PER ORDERS.ORAL CARE PROVIDED. DEEP SUCTION MOD AMOUNT OF WINKLER COLORED SECRETIONS. PT TOLERATED WELL. SAFETY MEASURES ARE IN PLACE.
--- NOTE | 2021-02-13 22:08 | NUR ---
ROUNDS MADE. FLACC 0. REMAINS RASS -3 ON ETT TO VENT. HOB ELEVATED. BUE SOFT WRIST RESTRAINTS ON. CALL LIGHT IS WITHIN REACH. WILL CONTINUE TO MONITOR.
--- NOTE | 2021-02-13 23:22 | NUR ---
PT ASLEEP COMFORTABLY. NO SOB OR DISTRESS NOTED. WILL CONTINUE TO MONITOR.
[2021-02-14] VITALS (34 sets, daily range): BP systolic 108–177; BP diastolic 43–81
--- NOTE | 2021-02-14 00:06 | NUR ---
MADE ROUNDS. VSS. ORAL CARE PROVIDED. DEEP SUCTION SMALL AMOUNT OF WINKLER COLORED SECRETIONS. HOB ELEVATED. WILL CONTINUE TO MONITOR.
[2021-02-14] MEDS: ALBUTEROL SULFATE/IPRATROPIU 3 ML SOL IH SCH ×3 (00:30→19:14)
--- NOTE | 2021-02-14 00:45 | NUR ---
HHN TX GIVEN. PT TOLERATED WELL. NO SOB OR DISTRESS NOTED. WILL CONTINUE TO MONITOR.
--- NOTE | 2021-02-14 02:46 | NUR ---
MADE ROUNDS. PT APPEARS TO BE ASLEEP. NO S/S OF DISTRESS ON ETT TO VENT. WILL CONTINUE TO MONITOR.
--- NOTE | 2021-02-14 03:21 | NUR ---
VENT CHECK. PT IS COMFORTABLE. NO SOB OR DISTRESS NOTED. WILL CONTINUE TO MONITOR.
--- NOTE | 2021-02-14 04:45 | NUR ---
PATIENT WAS CLEANED, ORAL CARE PROVIDED, MCCLAIN CATH CARE AND ROBERTH CARE GIVEN. PT TOLERATED WELL. PATIENT WAS REPOSITION FOR COMFORT. ALL NEEDS MET. HOB ELEVATED. WILL CONTINUE TO MONITOR.
[2021-02-14] MEDS: PROPOFOL 1000 MG/100 ML PREMIX 100 ML IV PRN ×3 (05:18→23:42)
[2021-02-14] MEDS: BLOOD GLUCOSE MONITORING 1 DEV DEV FS SCH ×4 (05:32→21:11)
[2021-02-14] MEDS: INSULIN LISPRO SLIDING SCALE 100 UNITS/ML VIAL SUBQ PRN ×4 (05:34→21:12)
--- NOTE | 2021-02-14 07:44 | NUR ---
GAVE BEDSIDE REPORT TO DAY RN. PT ENDORSED IN STABLE CONDITION.
--- NOTE | 2021-02-14 07:46 | NUR ---
RECEIVED BEDSIDE REPORT FROM PANEL FLOW MACHINE OPERATOR NURSE FOR CONTINUITY OF CARE. PATIENT IS SEDATED RASS -3, DRY WEIGHT 93.89 KG. RESPIRATION ARE EQUAL AND UNLABORED ETT TO VENT, AC/VC FIO2 30%, RATE 24, VT 450, PEEP 5, SPO2 95% AT THIS TIME. FLACC 0. RIJ CARLITOS CATH, CLEAN AND DRY. ISIDRO PICC INFUSING FENTANYL 1.5 MCG/KG/HR, PROPOFOL 20 MCG/KG/MIN, AND IVF 10 ML/HR TKO. OGT IN PLACE, RUNNING NEPRO 30 ML/HR, WATER FLUSH 100 ML/Q4H. GOAL IS 40 ML/HR. SKIN CLEAN, DRY, WARM TO TOUCH. MCCLAIN IN PLACE, DRAINING WITH GRAVITY, MINIMAL YELLOW URINE IN BAG NOTED. BILATERAL SOFT WRIST RESTRAINTS IN PLACE, NO SIGNS OF SKIN BREAK DOWN. RESTRAINTS WILL BE RENEWED TODAY AT 1200. DROPLET AND CONTACT PRECAUTION IN PLACE. PLAN OF CARE DISCUSSED. SAFETY MEASURES IN PLACE. HOB ELEVATED 35 DEGREE, BED IN LOW POSITION, AND BED LOCKED. WILL CONTINUE TO MONITOR.
[2021-02-14 08:13] LABS: BASOPHILS % (AUTO) 0.2 % (0.0-2.0); EOSINOPHILS # (AUTO) 0.3 K/uL (0-0.4); EOSINOPHILS % (AUTO) 1.7 % (0.0-4.0); HEMATOCRIT 23.8 % (36-48); HEMOGLOBIN 7.9 g/dL (12.0-16.0); LYMPHOCYTES # (AUTO) 1.3 K/uL (2.5-16.5); LYMPHOCYTES % (AUTO) 8.9 % (20.5-51.1); MEAN CORPUSCULAR HEMOGLOBIN 28 pg (27-31); MEAN CORPUSCULAR HGB CONC 33 g/dL (33-37); MONOCYTES # (AUTO) 0.1 K/uL (0.8-1.0); MONOCYTES % (AUTO) 0.8 % (1.7-9.3); NEUTROPHILS # (AUTO) 13.2 K/uL (1.8-7.7); NEUTROPHILS % (AUTO) 88.4 % (42.2-75.2); PLATELET COUNT (AUTO) 220 K/uL (140-450); RED CELL DISTRIBUTION WIDTH 13.9 % (11.6-13.7); WHITE BLOOD COUNT (AUTO) 14.9 K/uL (4.8-10.8)
[2021-02-14 08:31] LABS: ANION GAP 14.5 (8-16); CARBON DIOXIDE 25.4 mmol/L (21-32); POTASSIUM 3.9 mmol/L (3.5-5.1)
[2021-02-14] MEDS: PANTOPRAZOLE 40 MG INJ VIAL IVP SCH (08:45)
[2021-02-14] MEDS: DEXAMETHASONE 4 MG/ML VIAL IVP SCH (08:47)
[2021-02-14 08:48] LABS: CREATININE 5.5 mg/dL (0.6-1.3)
--- NOTE | 2021-02-14 08:48 | NUR ---
CREATININE LEVELS TRENDING DOWN TO 5.5 FROM 6.1. HEMODIALYSIS PATIENT
[2021-02-14] MEDS: POLYETHYLENE GLYCOL 17 GM/PKT GT SCH (08:49)
[2021-02-14] MEDS: LACTOBACILLUS RHAMNOSUS GG 1 EACH CAP GT SCH (08:50)
[2021-02-14] MEDS: DOCUSATE 100 MG/10 ML UDC GT SCH ×2 (08:51→21:00)
[2021-02-14] MEDS: ATORVASTATIN 80 MG TAB PO SCH (08:52)
[2021-02-14] MEDS: METOPROLOL 25 MG TAB PO SCH ×2 (08:52→20:55)
[2021-02-14] MEDS: ASCORBIC ACID 500 MG TAB PO SCH (08:52)
[2021-02-14] MEDS: ASPIRIN 81 MG TAB.CHEW PO SCH (08:53)
[2021-02-14] MEDS: ZINC SULF 220 MG CAP PO SCH (08:53)
--- NOTE | 2021-02-14 09:17 | NUR ---
OGT PLACEMENT VERIFIED AND GASTRIC RESIDUALS OF 60 CC. SCHEDULED MEDS CRUSHED AND GIVEN. FLACC 0. NO DISTRESS NOTED. WILL CONTINUE TO MONITOR.
--- NOTE | 2021-02-14 09:18 | NUR ---
ATTEMPTED TO SEE PATIENT FOR PHYSICAL THERAPY TREATMENT HOWEVER PATIENT REMAINS SEDATED AND INTUBATED; UNABLE TO PARTICIPATE. WILL FOLLOW UP FOR ANY CHANGES; RN AWARE.
--- NOTE | 2021-02-14 09:35 | NUR ---
DR. HART AT BEDSIDE ASSESSING PATIENT.
[2021-02-14] MEDS: hydrALAZINE 20 MG/ML VIAL IVP PRN (11:13)
--- NOTE | 2021-02-14 11:30 | NUR ---
PT PLACED ON SBT TOLERATED, CPAP 5 PS 8 AND FIO2 30%. VENT ALARMS SET APPROPRIATELY. WILL CONTINUE TO MONITOR.
--- NOTE | 2021-02-14 11:34 | NUR ---
RT AT BEDSIDE PLACING PATIENT ON CPAP Addendum: 02/14/21 at 1135 by Bang Newell RN RN SBT MODE. FIO2 30% PEEP 5
--- NOTE | 2021-02-14 11:40 | NUR ---
REPLACED TUBE FEEDING. PROSOURCE SUPPLEMENT GIVEN. PT IS STABLE. NO DISTRESS NOTED
[2021-02-14] MEDS: LORazepam 2 MG/ML VIAL IM/IVP PRN (12:05)
--- NOTE | 2021-02-14 12:11 | NUR ---
BLOOD SUGAR CHECK IS 309. INSULIN COVERAGE NEEDED. ADMINISTERED 8 UNITS OF INSULIN SQ PER MD ORDERED.
--- NOTE | 2021-02-14 12:19 | NUR ---
RT AT PATIENT'S BEDSIDE
--- NOTE | 2021-02-14 12:20 | NUR ---
PT REMAINS ON SBT, PT SLIGHTLY OPENS EYES BUT IS NOT ALERT WHEN SPOKEN TO. PT SUCTIONED OBTAINED SMALL AMOUNT OF THICK PALE YELLOW SECRETIONS, AIRWAY IS PATENT AND ETT IS SECURE.
--- NOTE | 2021-02-14 14:10 | NUR ---
MADE ROUNDS. RASS -3. FLACC 0. NO SIGNS OF RESPIRATORY DISTRESS NOTED. WILL CONTINUE TO MONITOR.
--- NOTE | 2021-02-14 14:11 | NUR ---
02/14/21 RD FOLLOW UP COMPLETED PLEASE REFER TO NUTRITION ASSESSMENT UNDER CARE ACTIVITY FOR ESTIMATED NUTRITIONAL NEEDS. 1. CONTINUE NEPRO 1.8 @ 40 ML/HR WITH PROSOURCE ONCE DAILY -THIS IS MEETING 1788 KCAL AND 93 GM PROTEIN/DAY. THIS IS MEETING 100% OF ESTIMATED KCAL NEEDS AND PROTEIN NEEDS 2. HOLD TUBE FEEDING IF RESIDUALS ARE ABOVE 500 ML WITH GI SYMPTOMS 3. CONTINUE FREE WATER FLUSH OF 100 ML Q4H OR PER MD 4. RD TO FOLLOW-UP 2-3 DAYS, HIGH RISK DHARMESH SAUCEDO RD
--- NOTE | 2021-02-14 14:41 | NUR ---
PT COMPLETED 3 HOURS OF SBT CPAP 5 PS 8. PT RETURNED TO ORIGINAL FULL SUPPORT AC MODE. NURSE AWARE. WILL CONTINUE TO MONITOR.
--- NOTE | 2021-02-14 14:42 | NUR ---
PATIENT COMPLETED SBT CPAP. RT PLACED PATIENT BACK TO ORIGINAL VENT SETTINGS. AC/VC FIO2 30% VT 450 RATE 24 PEEP 5. NO DISTRESS NOTED. WILL CONTINUE TO MONITOR.
--- NOTE | 2021-02-14 15:55 | NUR ---
DIALYSIS NURSE KEAGAN NOTIFIED OF DIALYSIS ORDER FOR TOMORROW 02/15/2021
--- NOTE | 2021-02-14 15:56 | NUR ---
DIALYSIS NURSE NOTIFIED BY CHARGE NURSE FOR HD PROCEDURE TOMORROW
--- NOTE | 2021-02-14 17:30 | NUR ---
BLOOD SUGAR CHECK IS 308. INSULIN COVERAGE NEEDED. ADMINISTERED 8 UNITS OF INSULIN SQ PER MD ORDERED.
--- NOTE | 2021-02-14 17:35 | NUR ---
PT REMAINS ON DOCUMENTED VENT SETTINGS NO CHANGES. ETT IS SECURE WITH A PATENT AIRWAY. VENT REMAIN ON AND FUNCTIONING. PT NOT IN ANY DISTRESS AT THIS TIME.
--- NOTE | 2021-02-14 17:40 | NUR ---
CONTACTED DR. GARCIA. NOTIFIED THAT PATIENT HAS NOT HAD A BM SINCE THE 02/09/21. NEW ORDERS RECEIVED. WILL PLACE ACCORDINGLY.
--- NOTE | 2021-02-14 19:07 | NUR ---
ENDORSED TO POUCH MAKER NURSE FOR CONTINUITY OF CARE. PT IS STABLE.
--- NOTE | 2021-02-14 19:30 | NUR ---
RECEIVED CARE AND REPORT FROM SHANNAN RN. UPON ENTERING THE PATIENT ROOM, PATIENT INTUBATED AND SEDATED, RASS -3. PATIENT ETT TO VENT, FIO2 30%, VT 450, RR 24, PEEP 5, TOLERATING VENT SETTINGS WELL, NO SIGNS OF DISTRESS NOTED. HOB 30 DEGREES, INTUBATED, RESTING IN A POSITION OF COMFORT. PATIENT HAS OG TUBE SECURED, ASPIRATED, AUSCULTATED AND FLUSHING WELL. PATIENT HAS TUBE FEEDING ORDER OF NEPRO RUNNING 40 ML/HR, FWF 100 Q4, RESIDUALS AT 20 ML, TOLERATING WELL. PATIENT CONNECTED TO CONTINUOUS CARDIAC MONITORING, NSR ON THE MONITOR, WILL CONTINUE TO CLOSELY MONITOR. PATIENT IV SITES INCLUDE RIGHT UPPER ARM PICC LINE, RIGHT FOREARM 20G, AND RIGHT IJ CARLITOS CATH SITES INTACT, DRY AND FLUSHING WELL. PATIENT DRIPS CURRENTLY RUNNING INCLUDE FENTANYL AT 1 MCG/KG/HR, PROPOFOL 10 MCG/KG/MIN, AND IVF 0.9% 5 ML/HR. PATIENT APPROXIMATE WEIGHT IS 90.7 KG. PATIENT HAS A MCCLAIN IN PLACE, INTACT, SECURED AND DRAINING WELL. PATIENT CURRENTLY BEING OFFLOADED FROM PRESSURE POINTS WITH USE OF PILLOWS AND FREQUENT REPOSITIONING. PATIENT CALL LIGHT WITHIN AN ARMS REACH ACCESSIBLE TO PATIENT. BED LOCKED AND LOWERED INTO A POSITION OF SAFETY. WILL CONTINUE TO CLOSELY MONITOR AND FREQUENTLY ROUND THROUGHOUT THE SHIFT.
--- NOTE | 2021-02-14 20:00 | NUR ---
VAP ORAL CARE, ORAL/ET TUBE SUCTIONING, HYGIENE, AND REPOSITIONING PROVIDED. REMAINS INTUBATED AND HOB 30 DEGREES. PATIENT RESTING IN A POSITION OF COMFORT, NO SIGNS OF DISTRESS NOTED AT BEDSIDE OR ON THE MONITOR. WILL CONTINUE TO CLOSELY MONITOR AND FREQUENTLY ROUND.
[2021-02-14] MEDS: LEVOFLOXACIN 500 MG/D5W PREMIX 100 ML IV SCH (20:52)
--- NOTE | 2021-02-14 21:00 | NUR ---
BLOOD SUGAR 348, HUMALOG COVERAGE GIVEN PER PROTOCOL. SCHEDULED MEDICATIONS GIVEN. WILL CONTINUE TO CLOSELY MONITOR AND FREQUENTLY MONITOR.
[2021-02-14] MEDS: fentaNYL citrate - 50mL vial 2.5 MG in NACL 0.9% 200 ML IV PRN (21:10)
[2021-02-14] MEDS: INSULIN LANTUS 100 UNITS/ML 10 ML VIAL SUBQ SCH (21:11)
--- NOTE | 2021-02-14 21:40 | NUR ---
RADIOLOGY FOR XRAY AT BEDSIDE FOR ORDERED KUB.
--- NOTE | 2021-02-14 22:07 | NUR ---
PATIENT CONTINUES TO REST, RASS -3, INTUBATED AND SEDATED. REPOSITIONED. NO SIGNS OF DISTRESS NOTED AT THE BEDSIDE OR ON THE MONITOR. WILL CONTINUE TO CLOSELY MONITOR AND FREQUENTLY ROUND.
--- NOTE | 2021-02-14 23:15 | NUR ---
PATIENT HAD 1 BM, LINENS CLEANED/CHANGED. CONSISTENCY RUNNY, BROWN, MODERATE AMOUNT NOTED. WILL CONTINUE TO CLOSELY MONITOR AND FREQUENTLY ROUND.
[2021-02-15] VITALS (32 sets, daily range): BP systolic 91–194; BP diastolic 35–96
--- NOTE | 2021-02-15 00:12 | NUR ---
VAP ORAL CARE, REPOSITIONING, SAFETY CHECKS, ET/ORAL SUCTIONING, AND HYGIENE. PATIENT HOB 30 DEGREES, INTUBATED AND SEDATED, RASS -3. NO SIGNS OF DISTRESS WHEN AT BEDSIDE OR ON THE MONITOR. WILL CONTINUE TO CLOSELY MONITOR AND FREQUENTLY ROUND.
--- NOTE | 2021-02-15 00:35 | NUR ---
RECEIVED PHONE CALL FROM DR. YING. CONFIRMED PATIENT SODIUM LEVEL 130, GIVEN ORDER TO CONTINUE FEEDING BUT HOLD FWF. WILL CARRY OUT ORDERS AND CONTINUE TO CLOSELY MONITOR AND FREQUENTLY ROUND.
[2021-02-15] MEDS: ALBUTEROL SULFATE/IPRATROPIU 3 ML SOL IH SCH ×4 (01:02→19:49)
--- NOTE | 2021-02-15 02:00 | NUR ---
PATIENT CONTINUES TO REST IN A POSITION OF COMFORT, STILL OCCASIONALLY TRIES TO REACH FOR TUBES AND LINES. RESTRAINT INTERVENTIONS CONTINUE TO REMAIN IN PLACE WITH CLOSE MONITORING OF PMSC'S, SKINS INTACT, NO SIGNS OF INJURY. RELEASE AND REAPPLY FOR 15 MINUTES EVERY Q2 HOURS WITH RN ASSISTANCE. PATIENT IV SITES CONTINUE TO REMAIN INTACT, PATENT AND DRY. WILL CONTINUE TO CLOSELY MONITOR AND FREQUENTLY ROUND.
--- NOTE | 2021-02-15 04:06 | NUR ---
MORNING CARE, HYGIENE, ROBERTH CARE, GOWN CHANGE, LINEN CHANGE, ET/ORAL SUCTIONING, SAFETY CHECKS AND REPOSITIONING PROVIDED. PATIENT INTUBATED AND SEDATED, STILL OCCASIONALLY TRIES TO PULL LINES AND TUBES. BILATERAL SOFT WRIST RESTRAINTS REMAIN IN PLACE, NO SIGNS OF SKIN BREAKDOWN OR INJURY, FREQUENTLY MONITORED AND CHECKED. RELEASED 15 MINUTES EVERY Q 2 HOURS THEN REAPPLIED WITH RN ASSISTANCE, THROUGHOUT THE SHIFT. PMSC'S INTACT. PATIENT CONTINUES TO TOLERATE THERAPIES AND VENT WELL. WILL CONTINUE TO CLOSELY MONITOR AND FREQUENTLY ROUND.
--- NOTE | 2021-02-15 06:30 | NUR ---
BLOOD GLUCOSE 258. HUMALOG COVERAGE GIVEN PER PROTOCOL MD ORDER. PATIENT CONTINUES TO TOLERATE CURRENT THERAPIES WELL. WILL CONTINUE TO CLOSELY MONITOR AND FREQUENTLY ROUND.
[2021-02-15] MEDS: INSULIN LISPRO SLIDING SCALE 100 UNITS/ML VIAL SUBQ PRN ×2 (06:41→12:58)
[2021-02-15] MEDS: BLOOD GLUCOSE MONITORING 1 DEV DEV FS SCH ×4 (06:42→18:23)
[2021-02-15] MEDS: PROPOFOL 1000 MG/100 ML PREMIX 100 ML IV PRN ×2 (07:08→14:29)
--- NOTE | 2021-02-15 07:18 | NUR ---
RECEIVED BEDSIDE REPORT FROM WRAPPER STEMMER HAND NURSE WADE RN, PT SEDATED RASS -3, DRY WEIGHT 93KG. PT ON ETT TO VENT, FIO2 30%, RATE 24, PEEP 5, TV 450. R UPPER ARM PICC RUNNING PROPOFOL @ 20MCG/KG/MIN, FENTANYL @ 1MCG/KG/HR, INFUSING WELL, OGT IN PLACE WITH FEEDING NEPRO @ 40ML/HR. RESIDUAL 50ML, TOLERATING WELL, MCCLAIN CATH IN PLACE DRAINING TO GRAVITY. INITIAL ASSESSMENT DONE, ALL SAFETY PRECAUTION MET, CALL LIGHT WITHIN REACH, WILL CONTINUE TO MONITOR.
--- NOTE | 2021-02-15 07:19 | NUR ---
ENDORSED CARE AND GAVE REPORT TO SHANNAN LINTON.
[2021-02-15 08:10] LABS: BASOPHILS % (AUTO) 0.3 % (0.0-2.0); EOSINOPHILS # (AUTO) 0.1 K/uL (0-0.4); EOSINOPHILS % (AUTO) 0.8 % (0.0-4.0); HEMATOCRIT 20.7 % (36-48); LYMPHOCYTES # (AUTO) 0.9 K/uL (2.5-16.5); LYMPHOCYTES % (AUTO) 6.3 % (20.5-51.1); MEAN CORPUSCULAR HEMOGLOBIN 28 pg (27-31); MEAN CORPUSCULAR HGB CONC 34 g/dL (33-37); MEAN CORPUSCULAR VOLUME 83.7 fL (80-94); MONOCYTES # (AUTO) 0.2 K/uL (0.8-1.0); MONOCYTES % (AUTO) 1.3 % (1.7-9.3); NEUTROPHILS # (AUTO) 13.7 K/uL (1.8-7.7); NEUTROPHILS % (AUTO) 91.3 % (42.2-75.2); PLATELET COUNT (AUTO) 201 K/uL (140-450); RED BLOOD CELL COUNT(AUTO) 2.47 MIL/uL (4.20-5.40); RED CELL DISTRIBUTION WIDTH 13.7 % (11.6-13.7)
[2021-02-15 08:22] LABS: ALBUMIN 1.6 g/dL (3.4-5.0); ANION GAP 19.1 (8-16); CARBON DIOXIDE 21.3 mmol/L (21-32); MAGNESIUM 2.2 mg/dL (1.8-2.4); PHOSPHORUS 5.9 mg/dL (2.5-4.9); POTASSIUM 4.4 mmol/L (3.5-5.1); TOTAL BILIRUBIN 0.7 mg/dL (0.0-1.0)
[2021-02-15 08:40] LABS: CREATININE 7.2 mg/dL (0.6-1.3)
[2021-02-15] MEDS: METOPROLOL 25 MG TAB PO SCH ×2 (09:00→21:00)
[2021-02-15] MEDS: EPOETIN ALFA-EPBX 10,000 UNITS/ML VIAL IV SCH (09:00)
[2021-02-15] MEDS: POLYETHYLENE GLYCOL 17 GM/PKT GT SCH (09:08)
[2021-02-15] MEDS: DOCUSATE 100 MG/10 ML UDC GT SCH ×2 (09:08→21:00)
[2021-02-15] MEDS: LACTOBACILLUS RHAMNOSUS GG 1 EACH CAP GT SCH (09:08)
[2021-02-15] MEDS: PANTOPRAZOLE 40 MG INJ VIAL IVP SCH (09:09)
[2021-02-15] MEDS: ASPIRIN 81 MG TAB.CHEW PO SCH (09:09)
[2021-02-15] MEDS: ATORVASTATIN 80 MG TAB PO SCH (09:09)
[2021-02-15] MEDS: ASCORBIC ACID 500 MG TAB PO SCH (09:09)
[2021-02-15] MEDS: ZINC SULF 220 MG CAP PO SCH (09:09)
[2021-02-15] MEDS: DEXAMETHASONE 4 MG/ML VIAL IVP SCH (09:10)
--- NOTE | 2021-02-15 09:11 | NUR ---
DUE MEDICATIONS ADMINISTERED, PT TOLERATED WELL, MCCLAIN CATH DONE, CHG BATH GIVEN, ORAL CARE DONE, WILL CONTINUE TO MONITOR.
--- NOTE | 2021-02-15 12:58 | NUR ---
BLOOD SUGAR CHECKED 230, INSULIN PER PROTOCOL, GIVEN, WILL CONTINUE TO MONITOR.
[2021-02-15 13:37] LABS: EOSINOPHILS # (AUTO) 0.1 K/uL (0-0.4); EOSINOPHILS % (AUTO) 0.4 % (0.0-4.0); HEMATOCRIT 24.9 % (36-48); HEMOGLOBIN 8.5 g/dL (12.0-16.0); LYMPHOCYTES # (AUTO) 0.6 K/uL (2.5-16.5); LYMPHOCYTES % (AUTO) 3.6 % (20.5-51.1); MEAN CORPUSCULAR HEMOGLOBIN 28 pg (27-31); MEAN CORPUSCULAR HGB CONC 34 g/dL (33-37); MEAN CORPUSCULAR VOLUME 83.5 fL (80-94); MONOCYTES # (AUTO) 0.2 K/uL (0.8-1.0); NEUTROPHILS # (AUTO) 16.3 K/uL (1.8-7.7); PLATELET COUNT (AUTO) 249 K/uL (140-450); RED BLOOD CELL COUNT(AUTO) 2.98 MIL/uL (4.20-5.40); RED CELL DISTRIBUTION WIDTH 13.9 % (11.6-13.7); WHITE BLOOD COUNT (AUTO) 17.1 K/uL (4.8-10.8)
[2021-02-15] MEDS ORDERED: LABETALOL 100 MG/20 ML VIAL IVP PRN (15:40)
--- NOTE | 2021-02-15 15:40 | NUR ---
DR ORTIZ AT BEDSIDE, PT ON SBT TRIAL, TOLERATING WELL, PER DR TO KEEP PT INTUBATED FOR NOW, TO CHANGE SEDATION TO PRECEDEX, TITRATE PER PROTOCOL, AND PT BP 180/71, PER DR TO GIVE LABETALOL 10MG IVP Q4H PRN FOR SYSTOLIC BP >160. WILL CONTINUE WITH ORDERS.
[2021-02-15] MEDS: DEXMEDETOMIDINE HCL 400 MCG in NACL 0.9% 96 ML IV PRN ×2 (16:05→21:47)
--- NOTE | 2021-02-15 17:00 | NUR ---
PT DID A BM, CLEAND AND REPOSITIONED PT PT TOLERATED WELL, WILL CONTINUE O MONITOR.
[2021-02-15] MEDS: hydrALAZINE 20 MG/ML VIAL IVP PRN (18:31)
--- NOTE | 2021-02-15 19:14 | NUR ---
ENDORSED PT TO TRANSIT CLERK NURSE WADE LINTON FOR CONTINUOUS OF CARE.
--- NOTE | 2021-02-15 19:30 | NUR ---
RECEIVED CARE AND REPORT FROM DAYSHIFT RN. UPON ENTERING THE PATIENT ROOM, PATIENT INTUBATED AND LIGHT/MINIMAL SEDATION, RASS -1. PATIENT ETT TO VENT, FIO2 30%, VT 450, RR 24, PEEP 5, TOLERATING VENT SETTINGS WELL, NO SIGNS OF DISTRESS NOTED. HOB 30 DEGREES, INTUBATED, RESTING IN A POSITION OF COMFORT. PATIENT HAS OG TUBE SECURED, ASPIRATED, AUSCULTATED AND FLUSHING WELL. PATIENT HAS TUBE FEEDING ORDER OF NEPRO RUNNING 40 ML/HR, NO FWF PER DR. YING, TOLERATING WELL. PATIENT CONNECTED TO CONTINUOUS CARDIAC MONITORING, NSR/ST ON THE MONITOR, WILL CONTINUE TO CLOSELY MONITOR. PATIENT IV SITES INCLUDE RIGHT UPPER ARM PICC LINE, RIGHT FOREARM 20G, AND RIGHT IJ CARLITOS CATH SITES INTACT, DRY AND FLUSHING WELL. PATIENT DRIPS CURRENTLY RUNNING INCLUDE PRECEDEX AT 0.6 MCG/KG/HR AND IVF 0.9% 5 ML/HR. PATIENT APPROXIMATE WEIGHT IS 93 KG. PATIENT HAS A MCCLAIN IN PLACE, INTACT, SECURED AND DRAINING WELL. HD OUTPUT DURING THE 3 L. PATIENT CURRENTLY BEING OFFLOADED FROM PRESSURE POINTS WITH USE OF PILLOWS AND FREQUENT REPOSITIONING. BILATERAL SOFT WRIST RESTRAINTS APPLIED TO THE PATIENT'S LEFT AND RIGHT WRISTS. PATIENT OCCASIONALLY ATTEMPTING TO PULL AT TUBES AND LINES. PMSC'S INTACT AND CHECKED OFTEN AND FREQUENTLY. RELEASE AND REAPPLY FOR 15 MINUTES EVERY Q2 HOURS THROUGHOUT SHIFT. WILL CONTINUE TO CLOSELY MONITOR. BED LOCKED AND LOWERED INTO A POSITION OF SAFETY. PROMOTING A RESTFUL ENVIRONMENT IN ROOM WITH DECREASED STIMULI AND COMFORT MEASURES IN PLACE. WILL CONTINUE TO CLOSELY MONITOR AND FREQUENTLY ROUND THROUGHOUT THE SHIFT.
--- NOTE | 2021-02-15 19:44 | NUR ---
PT RECIEVED ON AC/VC 450 +5, f24, FIO2 30% W/ 8.0 ETT SECURED @ 22CM. VENT PLUGGED INTO RED OUTLET W/ ALARMS ON AND AUDIBLE + AMBU AT BEDSIDE WILL CONTINUE TO MONITOR
--- NOTE | 2021-02-15 20:04 | NUR ---
VAP ORAL CARE, HYGIENE, SAFETY CHECKS, ET/ORAL SUCTIONING, AND REPOSITIONING PROVIDED. PATIENT CONTINUES TO TOLERATE CURRENT VENT SETTINGS AND THERAPIES WELL. SKINS INTACT, POSITIVE PMSC'S, NO SIGNS OF INJURY. NO SIGNS OF DISTRESS OBSERVED WHEN AT BEDSIDE OR ON THE MONITOR. WILL CONTINUE TO CLOSELY MONITOR AND FREQUENTLY ROUND.
[2021-02-15] MEDS: LORazepam 2 MG/ML VIAL IM/IVP PRN (20:23)
--- NOTE | 2021-02-15 20:23 | NUR ---
PATIENT SHOWING SOME SIGNS OF SLIGHT AGITATION AND RESTLESSNESS, ATTEMPTING TO PULL ET TUBE AND IV SITES. PATIENT COMFORTED AT BEDSIDE WITH RN ASSISTANCE, PROMOTION OF RESTFUL ENVIRONMENT IMPLEMENTED, REPOSITIONED, DECREASED STIMULI IN ROOM AND PRN ATIVAN IVP GIVEN. WILL CONTINUE TO CLOSELY MONITOR AND FREQUENTLY ROUND.
[2021-02-15] MEDS ORDERED: INSULIN LANTUS 100 UNITS/ML 10 ML VIAL SUBQ SCH (21:00)
--- NOTE | 2021-02-15 21:00 | NUR ---
PO METOPROLOL NOT GIVEN, HELD, DUE TO HYPOTENSION AND COLACE HELD DUE TO LARGE RUNNY STOOLS. OTHER SCHEDULED MEDICATIONS GIVEN ORDERED. WILL CONTINUE TO CLOSELY MONITOR AND FREQUENTLY ROUND.
--- NOTE | 2021-02-15 21:03 | NUR ---
PATIENT HAD VERY LARGE BM, LARGE QUANTITIES OF RUNNY, WATERY STOOL, BROWN TO LIGHT BROWN. PATIENT CLEANED, CHG BATH, GOWN CHANGED, LINENS CHANGED, OPTIFOAM APPLIED, REPOSITIONED, SAFETY CHECKS, AND ROBERTH CARE PROVIDED. PATIENT HOB 30 DEGREES, INTUBATED, RASS -1. RESTRAINTS CONTINUE TO REMAIN IN PLACE DUE TO PATIENT TRYING TO PULL ET TUBE AND IV SITES ON OCCASION. SKINS INTACT, PMSC'S POSITIVE AND NO SIGNS OF INJURY NOTED. CONTINUING TO RELEASE 15 MINUTES EVERY Q2 HOURS WITH RN ASSISTANCE. WILL CONTINUE TO CLOSELY MONITOR AND FREQUENTLY ROUND.
--- NOTE | 2021-02-15 21:30 | NUR ---
COMFORT MEASURE INTERVENTIONS EFFECTIVE, PATIENT RESTING IN A POSITION OF COMFORT, RASS -1, WILL CONTINUE TO CLOSELY MONITOR AND FREQUENTLY ROUND.
[2021-02-16] VITALS (33 sets, daily range): BP systolic 106–173; BP diastolic 42–89
--- NOTE | 2021-02-16 00:02 | NUR ---
VAP ORAL CARE, HYGIENE, ET/ORAL SUCTIONING, REPOSITIONING AND SAFETY CHECKS PROVIDED. HOB 30 DEGREES, RASS -1, OCCASIONALLY ATTEMPTS TO PULL LINES AND TUBES IN PLACE. CONTINUES TO TOLERATE TUBE FEEDING, VENT SETTINGS AND OTHER THERAPIES WELL. WILL CONTINUE TO CLOSELY MONITOR AND FREQUENTLY ROUND.
--- NOTE | 2021-02-16 00:10 | NUR ---
BLOOD GLUCOSE 277, HUMALOG INSULIN COVERAGE GIVEN PER MD ORDER PROTOCOL, WILL CONTINUE TO CLOSELY MONITOR AND FREQUENTLY ROUND.
[2021-02-16] MEDS: BLOOD GLUCOSE MONITORING 1 DEV DEV FS SCH ×4 (00:18→18:56)
[2021-02-16] MEDS: INSULIN LISPRO SLIDING SCALE 100 UNITS/ML VIAL SUBQ PRN ×4 (00:20→18:55)
--- NOTE | 2021-02-16 00:45 | NUR ---
FIO2 TITRATED TO 24% PT TOLERATED WELL
[2021-02-16] MEDS: ALBUTEROL SULFATE/IPRATROPIU 3 ML SOL IH SCH ×4 (00:49→20:08)
--- NOTE | 2021-02-16 01:29 | NUR ---
PT TOLERATING TITRATION WELL CURRENT SPO2 97% HR 91 f 25 WILL CONTINUE TO MONITOR
--- NOTE | 2021-02-16 02:07 | NUR ---
PATIENT CONTINUES TO REST WITH HOB 30 DEGREES, RASS -1, REPOSITIONED, ET/ORAL SUCTIONING, HYGIENE AND SAFETY CHECKS PROVIDED. TOLERATING CURRENT THERAPIES AND INTERVENTIONS WELL. SKINS INTACT, PMSC'S POSITIVE WITH NO SIGNS OF INJURY. WILL CONTINUE TO CLOSELY MONITOR AND FREQUENTLY ROUND.
--- NOTE | 2021-02-16 04:12 | NUR ---
MORNING CARE, VAP ORAL CARE, HYGIENE, ET/ORAL SUCTIONING, REPOSITIONING, ROBERTH CARE, CHG BATH, AND SAFETY CHECKS IN PLACE. PATIENT HAD LARGE QUANTITY BM, PATIENT CLEANED, GOWN CHANGED, AND LINENS CHANGED AND REFRESHED. HOB 30 DEGREES, INTUBATED, RASS -1 AND TOLERATING CURRENT SETTINGS AND THERAPIES WELL. NO SIGNS OF DISTRESS AT BEDSIDE OR ON THE MONITOR. WILL CONTINUE TO CLOSELY MONITOR AND FREQUENTLY ROUND.
[2021-02-16 05:14] LABS: BASOPHILS % (AUTO) 0.1 % (0.0-2.0); EOSINOPHILS # (AUTO) 0.1 K/uL (0-0.4); EOSINOPHILS % (AUTO) 0.4 % (0.0-4.0); HEMOGLOBIN 8.1 g/dL (12.0-16.0); LYMPHOCYTES # (AUTO) 1.1 K/uL (2.5-16.5); MEAN CORPUSCULAR HEMOGLOBIN 29 pg (27-31); MEAN CORPUSCULAR HGB CONC 34 g/dL (33-37); MEAN CORPUSCULAR VOLUME 85.9 fL (80-94); MONOCYTES # (AUTO) 0.2 K/uL (0.8-1.0); MONOCYTES % (AUTO) 1.8 % (1.7-9.3); NEUTROPHILS # (AUTO) 12.4 K/uL (1.8-7.7); PLATELET COUNT (AUTO) 230 K/uL (140-450); RED BLOOD CELL COUNT(AUTO) 2.79 MIL/uL (4.20-5.40); RED CELL DISTRIBUTION WIDTH 13.9 % (11.6-13.7); WHITE BLOOD COUNT (AUTO) 13.8 K/uL (4.8-10.8)
[2021-02-16 05:49] LABS: ANION GAP 18.4 (8-16); CARBON DIOXIDE 23.4 mmol/L (21-32); POTASSIUM 3.8 mmol/L (3.5-5.1)
[2021-02-16 06:16] LABS: CREATININE 5.5 mg/dL (0.6-1.3)
[2021-02-16] MEDS: DEXMEDETOMIDINE HCL 400 MCG in NACL 0.9% 96 ML IV PRN ×3 (06:30→21:41)
[2021-02-16 06:36] LABS: LYMPHOCYTES % (AUTO) 7.9 % (20.5-51.1); NEUTROPHILS % (AUTO) 89.8 % (42.2-75.2)
--- NOTE | 2021-02-16 07:31 | NUR ---
REPORT AND CARE ENDORSED TO SHANNAN LINTON.
--- NOTE | 2021-02-16 07:32 | NUR ---
RECEIVED REPORT FROM UNDER WATER ASSISTANT NURSE. PATIENT LYING DOWN IN BED, SEDATED, ETT TO VENT. NO DISTRESS NOTED. ISIDRO PICC LINE INTACT, PATENT, AND INFUSING IVF PER MD ORDERS. RIGHT IJ CARLITOS CATHETER WITH PIGTAIL INTACT. SAFETY MEASURES IN PLACE. WILL CONTINUE TO MONITOR.
--- NOTE | 2021-02-16 08:45 | NUR ---
PLACED PT ON SBT PS 8/CPAP 5. PT LASTED ABOUT 10 MINUTES UNTIL PT BECAME TACHYPNEIC, RR > 45. ENDED SBT AND PLACED BACK ON ORIGINAL VENT SETTINGS. WILL CONTINUE TO MONITOR.
[2021-02-16] MEDS: DOCUSATE 100 MG/10 ML UDC GT SCH ×2 (09:00→21:00)
[2021-02-16] MEDS: POLYETHYLENE GLYCOL 17 GM/PKT GT SCH (09:00)
[2021-02-16] MEDS: METOPROLOL 25 MG TAB PO SCH ×2 (09:24→21:11)
[2021-02-16] MEDS: ASCORBIC ACID 500 MG TAB PO SCH (09:24)
[2021-02-16] MEDS: ASPIRIN 81 MG TAB.CHEW PO SCH (09:25)
[2021-02-16] MEDS: ATORVASTATIN 80 MG TAB PO SCH (09:25)
[2021-02-16] MEDS: PANTOPRAZOLE 40 MG INJ VIAL IVP SCH (09:25)
[2021-02-16] MEDS: LACTOBACILLUS RHAMNOSUS GG 1 EACH CAP GT SCH (09:25)
[2021-02-16] MEDS: ZINC SULF 220 MG CAP PO SCH (09:25)
[2021-02-16] MEDS: DEXAMETHASONE 4 MG/ML VIAL IVP SCH (09:25)
--- NOTE | 2021-02-16 09:53 | NUR ---
SCHEDULED MEDICATIONS DUE GIVEN. ORAL CARE PROVIDED AND SUCTIONINED PATIENT. WILL CONTINUE TO MONITOR.
--- NOTE | 2021-02-16 11:30 | NUR ---
PATIENT HAD BM, CLEANED AND REPOSITIONED PATIENT. WILL CONTINUE TO MONITOR.
--- NOTE | 2021-02-16 14:00 | NUR ---
REPOSITIONED PATIENT AND PERFORMED ORAL CARE. WILL CONTINUE TO MONITOR.
--- NOTE | 2021-02-16 15:19 | NUR ---
PLACED PT ON SBT PS 8, CPAP 5 30%. PT LASTED ABOUT 1 AND 1/2 HOURS BEFORE BECAME TACHYPNEIC RR>45. PLACED PT BACK ON ORIGINAL SETTINGS. WILL CONTINUE TO MONITOR.
--- NOTE | 2021-02-16 17:30 | NUR ---
CLEANED AND REPOSITIONED PATIENT. WILL CONTINUE TO MONITOR.
--- NOTE | 2021-02-16 18:56 | NUR ---
SCHEDULED MEDICATIONS DUE GIVEN. WILL CONTINUE TO MONITOR.
--- NOTE | 2021-02-16 19:30 | NUR ---
RECEIVED CARE AND REPORT FROM SHANNAN RN. UPON ENTERING THE PATIENT ROOM, PATIENT INTUBATED AND LIGHT/MINIMAL SEDATION, RASS -1. PATIENT ETT TO VENT, FIO2 24%, VT 450, RR 24, PEEP 5, TOLERATING VENT SETTINGS WELL, NO SIGNS OF DISTRESS NOTED. HOB 30 DEGREES, INTUBATED, RESTING IN A POSITION OF COMFORT. PATIENT HAS OG TUBE SECURED, ASPIRATED, AUSCULTATED AND FLUSHING WELL. PATIENT HAS TUBE FEEDING ORDER OF NEPRO RUNNING 40 ML/HR, NO FWF, TOLERATING WELL. PATIENT CONNECTED TO CONTINUOUS CARDIAC MONITORING, NSR/ST ON THE MONITOR, WILL CONTINUE TO CLOSELY MONITOR. PATIENT IV SITES INCLUDE RIGHT UPPER ARM PICC LINE, RIGHT FOREARM 20G, AND RIGHT IJ CARLITOS CATH SITES INTACT, DRY AND FLUSHING WELL. PATIENT DRIPS CURRENTLY RUNNING INCLUDE PRECEDEX AT 0.6 MCG/KG/HR AND IVF 0.9% 5 ML/HR. PATIENT APPROXIMATE WEIGHT IS 93 KG. PATIENT HAS A MCCLAIN IN PLACE, INTACT, SECURED AND DRAINING WELL. PATIENT CURRENTLY BEING OFFLOADED FROM PRESSURE POINTS WITH USE OF PILLOWS AND FREQUENT REPOSITIONING. BILATERAL SOFT WRIST RESTRAINTS APPLIED TO THE PATIENT'S LEFT AND RIGHT WRISTS. PATIENT CONTINUING TO OCCASIONALLY ATTEMPT TO PULL AT TUBES AND LINES. PMSC'S INTACT AND CHECKED OFTEN AND FREQUENTLY. RELEASE AND REAPPLY FOR 15 MINUTES EVERY Q2 HOURS THROUGHOUT SHIFT. SKINS INTACT. PATIENT HAS AN EXISTING LEFT LEG BKA. WILL CONTINUE TO CLOSELY MONITOR. BED LOCKED AND LOWERED INTO A POSITION OF SAFETY. PROMOTING A RESTFUL ENVIRONMENT IN ROOM WITH DECREASED STIMULI AND COMFORT MEASURES IN PLACE. WILL CONTINUE TO CLOSELY MONITOR AND FREQUENTLY ROUND THROUGHOUT THE SHIFT.
--- NOTE | 2021-02-16 20:06 | NUR ---
VAP ORAL CARE, ET/ORAL SUCTIONING, HYGIENE, SAFETY CHECKS, SKIN CHECKS AND REPOSITIONING PROVIDED. PATIENT CONTINUES TO TOLERATE CURRENT THERAPIES WELL. INTUBATED, RASS -1, RESTING IN A POSITION OF COMFORT. CONTINUES TO OCCASIONALLY TRY TO GRAB ET TUBE AND IV SITE LINES. RESTRAINTS RELEASED FOR 15 MINUTES EVERY Q2 HOURS, SKINS CONSTANTLY CHECKED, NO SIGNS OF INJURY, PMSC'S POSITIVE AND INTACT. WILL CONTINUE TO CLOSELY MONITOR AND FREQUENTLY ROUND.
[2021-02-16] MEDS: LEVOFLOXACIN 500 MG/D5W PREMIX 100 ML IV SCH (20:59)
[2021-02-16] MEDS: INSULIN LANTUS 100 UNITS/ML 10 ML VIAL SUBQ SCH (21:23)
--- NOTE | 2021-02-16 21:45 | NUR ---
SCHEDULED MEDICATIONS GIVEN ORDERED. PATIENT CONTINUES TO BE RASS -1, HOB 30 DEGREES, INTUBATED. PATIENT CONTINUES TO BE IN RESTRAINTS, RELEASED 15 MINUTES EVERY Q2 HOURS, SKINS INTACT, PMSC'S POSITIVE AND NO SIGNS OF INJURY PRESENT. PATIENT RESTING IN A POSITION OF COMFORT, NO SIGNS OF DISTRESS NOTED WHILE AT BEDSIDE OR ON THE MONITOR. WILL CONTINUE TO CLOSELY MONITOR AND FREQUENTLY ROUND.
--- NOTE | 2021-02-16 22:25 | NUR ---
PATIENT HAD BM, RUNNY WATERY STOOL, LARGE QUANTITY, LIGHT BROWN. PATIENT CLEANED, CHG BATH, LINENS CHANGED, GOWN CHANGED, ROBERTH CARE, HYGIENE, ET/ORAL SUCTIONING, REPOSITIONING, AND SAFETY CHECKS IN PLACE. PATIENT CONTINUES TO REST IN A POSITION OF COMFORT, HOB 30 DEGREES, INTUBATED, RASS -1. NO SIGNS OF DISTRESS NOTED AT THE BEDSIDE. WILL CONINUE TO CLOSELY MONITOR AND FREQUENTLY ROUND.
[2021-02-17] VITALS (32 sets, daily range): BP systolic 108–159; BP diastolic 40–105
--- NOTE | 2021-02-17 00:45 | NUR ---
BLOOD GLUCOSE CHECKED, 369. HUMALOG COVERAGE GIVEN PER MD ORDERED PROTOCOL. WILL CONTINUE TO CLOSELY MONITOR AND FREQUENTLY ROUND.
[2021-02-17] MEDS: BLOOD GLUCOSE MONITORING 1 DEV DEV FS SCH ×5 (00:53→23:39)
[2021-02-17] MEDS: INSULIN LISPRO SLIDING SCALE 100 UNITS/ML VIAL SUBQ PRN ×5 (00:54→23:42)
[2021-02-17] MEDS: ALBUTEROL SULFATE/IPRATROPIU 3 ML SOL IH SCH ×4 (01:00→19:37)
--- NOTE | 2021-02-17 02:03 | NUR ---
PATIENT RESTING IN A POSITION OF COMFORT. HOB 30 DEGREES, RASS -1, INTUBATED, TOLERATING CURRENT THERAPIES WELL. NO SIGNS OF DISTRESS NOTED AT BEDSIDE OR ON THE MONITOR. SAFETY CHECKS REMAIN IN PLACE. WILL CONTINUE TO CLOSELY MONITOR AND FREQUENTLY ROUND.
[2021-02-17] MEDS: DEXMEDETOMIDINE HCL 400 MCG in NACL 0.9% 96 ML IV PRN ×3 (04:10→18:54)
--- NOTE | 2021-02-17 04:17 | NUR ---
MORNING CARE, GOWN CHANGE, LINEN CHANGE, ROBERTH CARE, HYGIENE, ET/ORAL SUCTIONING, REPOSITIONING, AND SAFETY CHECKS. PATIENT CONTINUES TO OCCASIONALLY PULL AT LINES AND TUBES. RESTRAINTS RELEASED AND REAPPLIED FOR 15 MINUTES EVERY Q 2 HOURS, SKINS INTACT, POSITIVE PMSC'S, NO SIGNS OF INJURY. PATIENT IN A POSITION OF COMFORT, RASS -1, HOB 30 DEGREES. CONTINUES TO TOLERATE THERAPIES WELL, NO SIGNS OF DISTRESS OBSERVED. WILL CONTINUE TO CLOSELY MONITOR AND FREQUENTLY ROUND.
--- NOTE | 2021-02-17 05:52 | NUR ---
BLOOD GLUCOSE CHECKED, 300, HUMALOG COVERAGE GIVEN ORDERED BY MD. WILL CONTINUE TO CLOSELY MONITOR AND FREQUENTLY ROUND.
--- NOTE | 2021-02-17 06:00 | NUR ---
CALLED AND SPOKE WITH KEAGAN TUTORING MANAGER, REGARDING PATIENT HD SCHEDULED FOR THIS MORNING.
[2021-02-17 06:20] LABS: ANION GAP 19.6 (8-16); BASOPHILS % (AUTO) 0.2 % (0.0-2.0); CARBON DIOXIDE 21.7 mmol/L (21-32); EOSINOPHILS # (AUTO) 0.1 K/uL (0-0.4); EOSINOPHILS % (AUTO) 0.8 % (0.0-4.0); HEMATOCRIT 23.9 % (36-48); HEMOGLOBIN 7.9 g/dL (12.0-16.0); LYMPHOCYTES # (AUTO) 0.9 K/uL (2.5-16.5); LYMPHOCYTES % (AUTO) 5.8 % (20.5-51.1); MEAN CORPUSCULAR HEMOGLOBIN 29 pg (27-31); MEAN CORPUSCULAR HGB CONC 33 g/dL (33-37); MONOCYTES # (AUTO) 0.2 K/uL (0.8-1.0); MONOCYTES % (AUTO) 1.4 % (1.7-9.3); NEUTROPHILS # (AUTO) 13.9 K/uL (1.8-7.7); NEUTROPHILS % (AUTO) 91.8 % (42.2-75.2); PLATELET COUNT (AUTO) 223 K/uL (140-450); POTASSIUM 4.3 mmol/L (3.5-5.1); RED BLOOD CELL COUNT(AUTO) 2.74 MIL/uL (4.20-5.40); RED CELL DISTRIBUTION WIDTH 14.1 % (11.6-13.7); WHITE BLOOD COUNT (AUTO) 15.2 K/uL (4.8-10.8)
[2021-02-17 06:24] LABS: CREATININE 7.2 mg/dL (0.6-1.3)
--- NOTE | 2021-02-17 07:20 | NUR ---
RECEIVED HANDOFF FROM ASP DEVELOPER RN. PT IS ABLE TO TRACK, NOD YES OR NO TO SIMPLE QUESTIONS. PT IS ETT TO VENT ACVC FIO2 24%, VT 450, R 24, PEEP 5, SATURATING WELL, RESPIRATIONS EVEN AND UNLABORED. PT IS CURRENTLY SR ON MONITOR. FOR ACCESS PT HAS ISIDRO PICC LINE, R FA 20 G, AND R IJ CARLITOS CATHETER WITH PIGTAIL. PRECEDEX 0.6 MCG/KG/HR AND IVF TKO. PT HAS OG TUBE TO FEED WITH NEPRO AT 40 ML/HR WITH NO FWF. MCCLAIN CATHETER IS IN PLACE, BUT WITH MINIMAL OUTPUT. HOB IS 30 DEG WITH BED IN LOW, LOCKED POSITION. SAFETY MEASURES IN PLACE.
--- NOTE | 2021-02-17 07:29 | NUR ---
REPORT AND CARE ENDORSED TO SHANNAN LINTON.
--- NOTE | 2021-02-17 07:40 | NUR ---
RCV'D PT INTUBATED WITH 8.0 ETT AT 22 CM AT TEETH. VENT CONNECTED TO RED OUTLET. ALARMS AUDIBLE. AMBU BAG AT BEDSIDE. HHN TX GIVEN WITH NO ADVERSE REACTION. MD AT BEDSIDE. NO SOB OR DISTRESS NOTED. WILL CONTINUE TO MONITOR.
[2021-02-17] MEDS: ASCORBIC ACID 500 MG TAB PO SCH (08:04)
[2021-02-17] MEDS: ASPIRIN 81 MG TAB.CHEW PO SCH (08:04)
[2021-02-17] MEDS: DEXAMETHASONE 4 MG/ML VIAL IVP SCH (08:04)
[2021-02-17] MEDS: LACTOBACILLUS RHAMNOSUS GG 1 EACH CAP GT SCH (08:04)
[2021-02-17] MEDS: PANTOPRAZOLE 40 MG INJ VIAL IVP SCH (08:05)
[2021-02-17] MEDS: ZINC SULF 220 MG CAP PO SCH (08:05)
[2021-02-17] MEDS: METOPROLOL 25 MG TAB PO SCH ×2 (08:05→20:47)
[2021-02-17] MEDS: ATORVASTATIN 80 MG TAB PO SCH (08:05)
[2021-02-17] MEDS: DOCUSATE 100 MG/10 ML UDC GT SCH ×2 (08:07→20:46)
[2021-02-17] MEDS: POLYETHYLENE GLYCOL 17 GM/PKT GT SCH (08:07)
--- NOTE | 2021-02-17 08:30 | NUR ---
SE. SYED AT [facility] Addendum: 02/17/21 at 1102 by Gaye Naylor RN RN *DR. SYED
--- NOTE | 2021-02-17 08:48 | NUR ---
MEDICATIONS ADMINISTERED PER ORDER, PT TOLERATED WELL. STOOL SOFTENERS HELD DUE TO PT HAVING WATERY BOWEL MOVEMENTS. OG TUBE AUSCULTATED TO CONFIRM PLACEMENT, 0 ML RESIDUAL FROM TUBE FEED. VAP ORAL CARE, CHG BATH, AND MCCLAIN CARE PROVIDED. TEMPERATURE 98.0 TEMPORALLY. PT REPOSITIONED AND OFFLOADED WITH PILLOWS. SAFETY MEASURES IN PLACE.
--- NOTE | 2021-02-17 10:35 | NUR ---
MEAT MOLDER AT BEDSIDE
--- NOTE | 2021-02-17 12:05 | NUR ---
BS 251, 6 UNITS OF INSULIN ADMINISTERED FOR COVERAGE PER SLIDING SCALE. TEMPERATURE 97.8 TEMPORALLY. VAP ORAL CARE PROVIDED. HD STILL OCCURRING AT THIS TIME.
--- NOTE | 2021-02-17 12:56 | NUR ---
DR. CANO SEEING PT. CHANGED VENT SETTINGS TO RR 20, FIO2 30%
--- NOTE | 2021-02-17 15:07 | NUR ---
02/17/21 RD FOLLOW UP COMPLETED PLEASE REFER TO NUTRITION ASSESSMENT UNDER CARE ACTIVITY FOR ESTIMATED NUTRITIONAL NEEDS. 1. CONTINUE NEPRO 1.8 @ 40 ML/HR WITH PROSOURCE ONCE DAILY -THIS IS MEETING 1788 KCAL AND 93 GM PROTEIN/DAY. THIS IS MEETING 100% OF ESTIMATED KCAL NEEDS AND PROTEIN NEEDS 2. HOLD TUBE FEEDING IF RESIDUALS ARE ABOVE 500 ML WITH GI SYMPTOMS 3. RD TO FOLLOW-UP 2-3 DAYS, HIGH RISK DHARMESH SAUCEDO, RD
--- NOTE | 2021-02-17 16:14 | NUR ---
PT REMAINS INTUBATED, TOLERATING CPAP TRIALS DAILY, BREATH SOUNDS IMPROVED, RECEIVED HER DIALYSIS TODAY, AND COULD TOLERATE LONGER CPAP TRIALS FOR GOAL OF EXTUBATION.
--- NOTE | 2021-02-17 17:37 | NUR ---
PT HAD LARGE WATERY BROWN/ORANGE BM. CLEANED PT, CHANGED ALL LINENS. REPOSITIONED PT AND OFFLOADED WITH PILLOWS. TEMPERATURE 97.9 TEMPORALLY. VAP ORAL CARE PROVIDED
--- NOTE | 2021-02-17 18:38 | NUR ---
DR. AUSTIN SEEING PT
--- NOTE | 2021-02-17 19:17 | NUR ---
HANDOFF GIVEN TO SENIOR MEDIA PLANNER RN FOR CONTINUITY OF CARE
--- NOTE | 2021-02-17 19:25 | NUR ---
RECEIVED CARE AND REPORT FROM SHANNAN LINTON. WHEN ENTERING THE PATIENT ROOM, PATIENT INTUBATED AND LIGHT/MINIMAL SEDATION, RASS -1. PATIENT ABLE TO COMMUNICATE BY NODDING, OPENS EYES WHEN BEING SPOKEN TO. PATIENT ETT TO VENT, FIO2 30%, VT 450, RR 20, PEEP 5, TOLERATING VENT SETTINGS WELL, NO SIGNS OF DISTRESS NOTED WHEN AT THE BEDSIDE OR ON THE MONITOR. HOB 30 DEGREES, INTUBATED, RESTING IN A POSITION OF COMFORT. PATIENT HAS OG TUBE SECURED, ASPIRATED, AUSCULTATED AND FLUSHING WELL, RESIDUALS 10 ML. PATIENT HAS TUBE FEEDING ORDER OF NEPRO RUNNING 40 ML/HR, NO FWF, TOLERATING WELL. PATIENT CONNECTED TO CONTINUOUS CARDIAC MONITORING, NSR/ST ON THE MONITOR, WILL CONTINUE TO CLOSELY MONITOR THROUGHOUT THE SHIFT. PATIENT IV SITES INCLUDE RIGHT UPPER ARM PICC LINE, RIGHT FOREARM 20G, AND RIGHT IJ CARLITOS CATH SITES INTACT, DRY AND FLUSHING WELL, IV CAPS CHANGED. PATIENT DRIPS CURRENTLY RUNNING INCLUDE PRECEDEX AT 0.6 MCG/KG/HR AND IVF 0.9% 5 ML/HR, TKO. PATIENT APPROXIMATE WEIGHT IS 93 KG. PATIENT HAS A MCCLAIN CATHETER IN PLACE, INTACT, SECURED AND DRAINING WELL. PATIENT CURRENTLY BEING OFFLOADED FROM PRESSURE POINTS WITH USE OF PILLOWS AND FREQUENT REPOSITIONING. BILATERAL SOFT WRIST RESTRAINTS APPLIED TO THE PATIENT'S LEFT AND RIGHT WRISTS. PATIENT CONTINUING TO OCCASIONALLY ATTEMPT TO PULL AT TUBES AND LINES, RESTRAINTS CONTINUE TO BE NEEDED FOR PATIENT SAFETY. PMSC'S INTACT AND CHECKED OFTEN AND FREQUENTLY. RELEASE AND REAPPLY FOR 15 MINUTES EVERY Q2 HOURS THROUGHOUT SHIFT. SKINS INTACT. PATIENT HAS AN EXISTING LEFT LEG BKA. WILL CONTINUE TO CLOSELY MONITOR. BED LOCKED AND LOWERED INTO A POSITION OF SAFETY. COMFORT MEASURES IN PLACE, PROMOTION OF A RESTFUL ENVIRONMENT IN ROOM WITH DECREASED STIMULI. WILL CONTINUE TO CLOSELY MONITOR AND FREQUENTLY ROUND THROUGHOUT THE SHIFT. Addendum: 02/17/21 at 2223 by Leonard Melchor RN RN VENT MODE AC/VC
--- NOTE | 2021-02-17 20:01 | NUR ---
VAP ORAL CARE, HYGIENE, SAFETY CHECKS, ET/ORAL SUCTIONING AND REPOSITIONING PROVIDED. PATIENT HAS MODERATE, CLEAR GREEN TINGED SECRETIONS. PATIENT RESTING IN A POSITION OF COMFORT. NO SIGNS OF DISTRESS OBSERVED WHILE AT BEDSIDE OR ON THE MONITOR. HOB 30 DEGREES, RASS -1, TOLERATING CURRENT THERAPIES IN PLACE WELL. PATIENT RESTING/ASLEEP. WILL CONTINUE TO CLOSELY MONITOR AND FREQUENTLY ROUND.
--- NOTE | 2021-02-17 20:24 | NUR ---
PTS SON ANDREEA PERRY, HERE TO PICKUP ALL BELONGINGS, PT's BELONGING LIST SIGNED. UPDATED ON PATIENT CONDITION, ALL CONCERNS ADDRESSED.
[2021-02-17] MEDS: INSULIN LANTUS 100 UNITS/ML 10 ML VIAL SUBQ SCH (20:55)
--- NOTE | 2021-02-17 21:04 | NUR ---
PT RECEIVED ON AC/VC 450 +5, f20, 30% W/ 8 ETT SECURED @ 22CM. VENT PLUGGED INTO RED OUTLET, ALARMS ON & AUDIBLE, AND AMBU @ BEDSIDE WILL CONTINUE TO MONITOR
--- NOTE | 2021-02-17 21:05 | NUR ---
SCHEDULED MEDICATIONS GIVEN ORDERED. HELD COLACE, NOT GIVEN, DUE TO PATIENT CONTINUES TO HAVE LARGE QUANTITY RUNNY STOOLS. WILL CONTINUE TO FREQUENTLY REASSESS OFTEN. PATIENT TOLERATING THERAPIES, NO SIGNS OF DISTRESS OBSERVED AT BEDSIDE. WILL CONTINUE TO CLOSELY MONITOR AND FREQUENTLY ROUND.
--- NOTE | 2021-02-17 22:19 | NUR ---
PATIENT HAD MODERATE QUANTITY BM, SOFT, LIGHT BROWN, SEMI FORMED. PATIENT CLEANED, GOWN CHANGED, LINENS CHANGED, ROBERTH CARE, CHG BATH, REPOSITIONED AND PLACED IN A POSITION OF COMFORT. WILL CONTINUE TO CLOSELY MONITOR AND FREQUENTLY ROUND.
--- NOTE | 2021-02-17 23:36 | NUR ---
VAP ORAL CARE, ET/ORAL SUCTIONING, HYGIENE, SAFETY CHECKS AND REPOSITIONING PROVIDED. PATIENT CONTINUES TO HAVE RESTRAINTS RELEASED EVERY 15 MINUTES AND REAPPLIED EVERY Q2 HOURS WITH RN ASSISTANCE, CONTINUES TO OCCASIONALLY ATTEMPT TO GRAB AT ET TUBE AND IV SITE LINES. SKINS INTACT, PMSC'S POSITIVE, NO SIGNS OF INJURY. PATIENT IN A POSITION OF COMFORT, HOB 30 DEGREES, RASS -1. WILL CONTINUE TO CLOSELY MONITOR AND FREQUENTLY ROUND.
[2021-02-18] VITALS (35 sets, daily range): BP systolic 122–168; BP diastolic 47–77
--- NOTE | 2021-02-18 00:16 | NUR ---
BLOOD GLUCOSE 392, HUMALOG COVERAGE GIVEN ORDERED BY MD. WILL CONTINUE TO REASSESS OFTEN, CLOSELY MONITOR AND FREQUENTLY ROUND.
[2021-02-18] MEDS: ALBUTEROL SULFATE/IPRATROPIU 3 ML SOL IH SCH ×4 (00:49→19:24)
--- NOTE | 2021-02-18 02:21 | NUR ---
PATIENT CONTINUES TO REST IN A POSITION OF COMFORT. HOB 30 DEGREES, RASS -1, INTUBATED. PATIENT STILL OCCASIONALLY TRYING TO PULL LINES AND TUBES. RESTRAINTS CONTINUE TO BE RELEASED AND REAPPLIED FOR 15 MINUTES EVERY Q 2HOURS. PMSC'S POSITIVE, SKINS INTACT AND NO SIGNS OF INJURY. PATIENT ET/ORAL SUCTIONED AND REPOSITIONED. WILL CONTINUE TO CLOSELY MONITOR AND FREQUENTLY ROUND.
[2021-02-18] MEDS: DEXMEDETOMIDINE HCL 400 MCG in NACL 0.9% 96 ML IV PRN ×3 (03:15→22:51)
[2021-02-18] MEDS: BLOOD GLUCOSE MONITORING 1 DEV DEV FS SCH ×15 (05:33→23:46)
[2021-02-18] MEDS: INSULIN LISPRO SLIDING SCALE 100 UNITS/ML VIAL SUBQ PRN (05:35)
[2021-02-18 05:46] LABS: HEMATOCRIT 22.3 % (36-48); HEMOGLOBIN 7.5 g/dL (12.0-16.0); MEAN CORPUSCULAR HEMOGLOBIN 30 pg (27-31); MEAN CORPUSCULAR HGB CONC 34 g/dL (33-37); MEAN CORPUSCULAR VOLUME 89.3 fL (80-94); PLATELET COUNT (AUTO) 227 K/uL (140-450); RED CELL DISTRIBUTION WIDTH 13.8 % (11.6-13.7); WHITE BLOOD COUNT (AUTO) 18.4 K/uL (4.8-10.8)
[2021-02-18 05:55] LABS: ANION GAP 18.5 (8-16); CARBON DIOXIDE 24.9 mmol/L (21-32); POTASSIUM 4.4 mmol/L (3.5-5.1)
[2021-02-18 06:08] LABS: CREATININE 5.9 mg/dL (0.6-1.3)
--- NOTE | 2021-02-18 07:05 | NUR ---
REPORT AND CARE ENDORSED TO SHANNAN LINTON.
--- NOTE | 2021-02-18 07:20 | NUR ---
RECEIVED HANDOFF FROM OFFICE MACHINE REPAIR SHOP SUPERVISOR RN. PT IS ABLE TO TRACK, NOD YES OR NO TO SIMPLE QUESTIONS. PT IS ETT TO VENT ACVC FIO2 26%, VT 450, R 20, PEEP 5, SATURATING WELL, RESPIRATIONS EVEN AND UNLABORED. PT IS CURRENTLY SR ON MONITOR. FOR ACCESS PT HAS ISIDRO PICC LINE, R FA 20 G, AND R IJ CARLITOS CATHETER WITH PIGTAIL. PRECEDEX IS RUNNING AT 0.6 MCG/KG/HR AND IVF TKO. PT HAS OG TUBE TO FEED WITH NEPRO AT 40 ML/HR WITH NO FWF. MCCLAIN CATHETER IS IN PLACE, BUT WITH MINIMAL OUTPUT. HOB IS 30 DEG WITH BED IN LOW, LOCKED POSITION. SAFETY MEASURES IN PLACE.
[2021-02-18 07:22] LABS: LYMPHOCYTES % (MANUAL) 4 % (20-46); MONOCYTES % (MANUAL) 2 % (5-12)
[2021-02-18] MEDS: METOPROLOL 25 MG TAB PO SCH ×2 (08:04→20:32)
[2021-02-18] MEDS: ZINC SULF 220 MG CAP PO SCH (08:05)
[2021-02-18] MEDS: EPOETIN ALFA-EPBX 10,000 UNITS/ML VIAL IV SCH (08:05)
[2021-02-18] MEDS: PANTOPRAZOLE 40 MG INJ VIAL IVP SCH (08:05)
[2021-02-18] MEDS: ATORVASTATIN 80 MG TAB PO SCH (08:06)
[2021-02-18] MEDS: DOCUSATE 100 MG/10 ML UDC GT SCH ×2 (08:06→20:32)
[2021-02-18] MEDS: LACTOBACILLUS RHAMNOSUS GG 1 EACH CAP GT SCH (08:06)
[2021-02-18] MEDS: DEXAMETHASONE 4 MG/ML VIAL IVP SCH (08:06)
[2021-02-18] MEDS: POLYETHYLENE GLYCOL 17 GM/PKT GT SCH (08:06)
[2021-02-18] MEDS: ASCORBIC ACID 500 MG TAB PO SCH (08:06)
[2021-02-18] MEDS: ASPIRIN 81 MG TAB.CHEW PO SCH (08:06)
--- NOTE | 2021-02-18 09:00 | NUR ---
DR. YING SEEING PT, AWARE OF PT'S CONDITION
--- NOTE | 2021-02-18 09:06 | NUR ---
MEDICATIONS ADMINISTERED PER ORDER, STOOL SOFTENERS HELD DUE TO PT HAVING WATERY STOOL. OG TUBE AUSCULTATED TO CONFIRM PLACEMENT, 0 ML RESIDUAL FROM TUBE FEED. VAP ORAL CARE, CHG BATH, AND MCCLAIN CARE PROVIDED. CENTRAL LINE DRESSING CHANGED USING STERILE TECHNIQUE. TEMPERATURE 97.5 TEMPORALLY. PT REPOSITIONED AND OFFLOADED USING PILLOWS FOR OPTIMAL SKIN INTEGRITY.
--- NOTE | 2021-02-18 09:27 | NUR ---
PER DR. STRAUSS, OKAY TO CANCEL URINE CULTURE DUE TO PT BEING OLIGURIC
--- NOTE | 2021-02-18 10:09 | NUR ---
SPOKE TO SON ANDREEA, PROVIDED HIM WITH UPDATE. PLAN IS TO HAVE ANDREEA ON THE PHONE TALKING TO PT DURING CPAP TRIALS AT APPROXIMATELY 10:30
--- NOTE | 2021-02-18 10:34 | NUR ---
PT NOW PLACED ON CPAP BY RT SCHWARTZ, TRICIA DORAN ON THE PHONE WITH PT AT THIS TIME
--- NOTE | 2021-02-18 10:39 | NUR ---
STARTED CPAP TRIAL, CPAP5 PS 12 30%. PT IS TOLERATING WELL, WILL MONITOR CLOSELY.
[2021-02-18] MEDS: INSULIN REGULAR, HUMAN 100 UNIT in NACL 0.9% 100 ML IV SCH ×4 (11:58→20:56)
--- NOTE | 2021-02-18 12:00 | NUR ---
VAP ORAL CARE PROVIDED. TEMPERATURE 98.5 TEMPORALLY. INSULIN DRIP STARTED AT THIS TIME.
[2021-02-18 12:39] LABS: MAGNESIUM 2.3 mg/dL (1.8-2.4); PHOSPHORUS 6.1 mg/dL (2.5-4.9)
--- NOTE | 2021-02-18 13:56 | NUR ---
PT TOLERATED SBT FOR ABOUT 3 HOURS, THEN BECAME TACHYPNEIC. PLACED BACK ON AC MODE.
[2021-02-18] MEDS ORDERED: Z-GUARD PASTE TP ONE (14:08)
--- NOTE | 2021-02-18 14:37 | NUR ---
PT HAD SMALL WATERY BM. PT CLEANED, Z GUARD APPLIED. LINENS CHANGED. PT REPOSITIONED AND OFFLOADED WITH PILLOWS
--- NOTE | 2021-02-18 15:23 | NUR ---
DR. CANO SEEING PT, AWARE OF PT'S STATUS. PER DR. CANO, TOMORROW SEDATION SHOULD BE TURNED OFF COMPLETELY PRIOR TO CPAP TRIAL. WILL ENDORSE TO HEALTH RECORDS TECHNOLOGY TEACHER.
--- NOTE | 2021-02-18 16:18 | NUR ---
DR. GALVEZ SEEING PT, AWARE OF PT'S STATUS
[2021-02-18 16:33] LABS: ANION GAP 21.1 (8-16); CARBON DIOXIDE 21.7 mmol/L (21-32); POTASSIUM 4.8 mmol/L (3.5-5.1)
[2021-02-18 16:36] LABS: MAGNESIUM 2.2 mg/dL (1.8-2.4); PHOSPHORUS 6.2 mg/dL (2.5-4.9)
[2021-02-18 16:37] LABS: CREATININE 6.9 mg/dL (0.6-1.3)
--- NOTE | 2021-02-18 17:48 | NUR ---
PT REPOSITIONED, VAP ORAL CARE PROVIDED. TEMPERATURE 98.9 TEMPORALLY.
--- NOTE | 2021-02-18 18:32 | NUR ---
DR. AUSTIN SEEING PT. PER DR. AUSTIN, DISCONTINUE ORDER FOR LEVOFLOXACIN, ORDERS UPDATED
--- NOTE | 2021-02-18 19:21 | NUR ---
HANDOFF GIVEN TO OPERATIONS VICE PRESIDENT RN FOR CONTINUITY OF CARE
--- NOTE | 2021-02-18 19:25 | NUR ---
PT SEEN AND ASSESSED. RECEIVED INTUBATED PT ON VENTILATOR SUPPORT. ETT SIZE 8.0 AND SECURED WITH ANCHOR-FAST @ 22cm TEETH. VENT SETTINGS: AC/VC RR 20, VT 450, PEEP 5, FiO2 28%. SPO2 85%. ALARMS SET AND FUNCTIONING. VENT PLUGGED IN RED OUTLET. AMBU BAG AT BEDSIDE. AUSCULTATION REVEALS BILATERAL CLEAR BREATH SOUNDS. SUCTION SMALL CLEAR/ WHITE THICK SECRETIONS. PT IS IN NO RESPIRATORY DISTRESS. HHN TX GIVEN AND PT TOLERATED TX WELL. NO ADVERSE REACTION. WILL CONTINUE TO MONITOR PT.
--- NOTE | 2021-02-18 19:30 | NUR ---
AT BEDSIDE PT DESATURATING IN 80s. SUCTIONED SMALL WHITE THICK SECRETIONS. SPO2 PROBE CHANGED WITH NO IMPROVEMENT. TITRATED FiO2 FROM 28% TO 30%. SPO2 93%. WILL CONTINUE TO MONITOR PT.
--- NOTE | 2021-02-18 19:35 | NUR ---
RECIEVED BEDSIDE ENDORSMENT FROM DAY SHIFT RN, PT A&0X2, ABLE TO TRACH TO VOICE AND NOD YES OR NO TO QUESTIONS, ST ON MONITOR, ETT TO VENT ACVC FIO2 28% TV 450 RATE 20 PEEP 5, OGT CLAMPED, PT NPO EXCEPT MEDS, ABD SOFT AND NON TENDER TO TOUCH, SKIN WARM DRY AND INTACT, LEFT BKA NOTED, RFA 20G SALINE LOCKED, RIJ QC PIGTAIL INFUSING INSULIN @ 1 UNIT/KG/HR, ISIDRO PICC INFUSING PRECEDEX 0.4 MCG/KG/HR AND NS TKO, FC IN PLACE DRAINING VIA GRAVITY, PT SHOWING NO SIGNS OF ACUTE DISTRESS, SAFETY MEASURES IN PLACE, WILL CONTINUE WITH CURRENT POC MNURTS
--- NOTE | 2021-02-18 19:45 | NUR ---
BLOOD GLUCOSE 205
--- NOTE | 2021-02-18 20:45 | NUR ---
BLOOD GLUCOSE 190
[2021-02-18] MEDS: INSULIN LANTUS 100 UNITS/ML 10 ML VIAL SUBQ SCH (20:55)
--- NOTE | 2021-02-18 20:55 | NUR ---
STARTED NEW BAG OF INSULIN DRIP @ 0.1 UNIT/KG/HR
--- NOTE | 2021-02-18 21:10 | NUR ---
ADMINISTERED 2100H MEDICAITONS PER MD ORDERS, REPOSITONED PT, ORAL CARE AND SUCTIONING GIVEN, PT SHOWING NO SIGNS OF ACUTE DISTRESS
[2021-02-18 21:16] LABS: CARBON DIOXIDE 23.8 mmol/L (21-32); MAGNESIUM 2.2 mg/dL (1.8-2.4); POTASSIUM 4.8 mmol/L (3.5-5.1)
[2021-02-18 21:17] LABS: PHOSPHORUS 6.3 mg/dL (2.5-4.9)
[2021-02-18 21:19] LABS: CREATININE 7.3 mg/dL (0.6-1.3)
--- NOTE | 2021-02-18 21:45 | NUR ---
BLOOD GLUCOSE 155
--- NOTE | 2021-02-18 22:45 | NUR ---
BLOOD GLUCOSE 147
--- NOTE | 2021-02-18 23:26 | NUR ---
HUNG NEW BAG OF PRECEDEX @ 0.4 MCG/KG/HR
--- NOTE | 2021-02-18 23:46 | NUR ---
BLOOD GLUCOSE 141
[2021-02-19] VITALS (36 sets, daily range): BP systolic 101–164; BP diastolic 33–93
[2021-02-19 00:32] LABS: ANION GAP 22.2 (8-16); CARBON DIOXIDE 21.7 mmol/L (21-32); MAGNESIUM 2.3 mg/dL (1.8-2.4); PHOSPHORUS 6.4 mg/dL (2.5-4.9); POTASSIUM 4.9 mmol/L (3.5-5.1)
[2021-02-19 00:35] LABS: CREATININE 7.4 mg/dL (0.6-1.3)
[2021-02-19] MEDS: ALBUTEROL SULFATE/IPRATROPIU 3 ML SOL IH SCH ×4 (00:43→19:35)
[2021-02-19] MEDS: BLOOD GLUCOSE MONITORING 1 DEV DEV FS SCH ×11 (00:52→23:11)
--- NOTE | 2021-02-19 00:53 | NUR ---
BLOOD GLUCOSE 107, REPOSITIONED PT, ORAL CARE AND SUCTIONING PERFORMED
--- NOTE | 2021-02-19 01:46 | NUR ---
BLOOD GLUCOSE 96, ORAL CARE AND SUCTIONING PERFORMED, REPOSITIONED PT
--- NOTE | 2021-02-19 03:45 | NUR ---
BLOOD GLUCOSE 86
--- NOTE | 2021-02-19 04:10 | NUR ---
MORNING CARE GIVEN, CHANGED LINEN, ORAL CARE AND SUCTIONING GIVEN, REPOSITIONED PT,
[2021-02-19 05:44] LABS: CREATININE 7.8 mg/dL (0.6-1.3)
--- NOTE | 2021-02-19 05:45 | NUR ---
BLOOD GLUCOSE 75
[2021-02-19 06:00] LABS: HEMATOCRIT 22.1 % (36-48); HEMOGLOBIN 7.2 g/dL (12.0-16.0); MEAN CORPUSCULAR HEMOGLOBIN 28 pg (27-31); MEAN CORPUSCULAR HGB CONC 33 g/dL (33-37); MEAN CORPUSCULAR VOLUME 86.4 fL (80-94); PLATELET COUNT (AUTO) 245 K/uL (140-450); RED BLOOD CELL COUNT(AUTO) 2.56 MIL/uL (4.20-5.40); RED CELL DISTRIBUTION WIDTH 14.1 % (11.6-13.7); WHITE BLOOD COUNT (AUTO) 20.5 K/uL (4.8-10.8)
--- NOTE | 2021-02-19 06:00 | NUR ---
PT STILL REMAINS ON VENT SUPPORT. ETT SECURED WITH ANCHOR-FAST. VENT PLUGGED IN RED OUTLET. PT TOLERATING WELL AT THIS TIME. NOTICE ADEQUATE CHEST RISE AND FALL. EQUAL BILATERAL BREATH SOUNDS.
[2021-02-19 06:53] LABS: LYMPHOCYTES % (MANUAL) 5 % (20-46); MONOCYTES % (MANUAL) 2 % (5-12)
--- NOTE | 2021-02-19 07:14 | NUR ---
ENDORSED TO DAY SHIFT RN FOR CONTINUITY OF CARE
--- NOTE | 2021-02-19 07:30 | NUR ---
RECEIVED REPORT FROM WHEEL MILL OPERATOR NURSE, KANDIS LINTON, FOR CONTINUITY OF CARE. AOX2. SR-ST ON MONITOR. ETT TO VENT, AC/VC FIO2 30%, TD 450, RATE 20, PEEP 5. IVS ARE CLEAN, DRY, AND INTACT, WITH A RFA 20G SALINE LOCKED, A ISIDRO PICC LINE INFUSING PRECEDEX AT 0.4 MCG/KG/HR, AND A RIJ CARLITOS INFUSING INSULIN R AT 0.05 UNITS/KG/HR. MCCLAIN CATH IN PLACE, DRAINING YELLOW URINE TO GRAVITY. LAST ACCUCHECK IS 75. LAST ANION GAP 20. RESTRAINTS IN PLACE WITH NO SIGN OF INJURY. CERTIFIED SOCIAL WORKERS IN HEALTH CARE AND PULSE OXIMETER IN PLACE. PATIENT LYING IN BED WITH HEAD OF BED AT 30 DEGREES, BED IN LOW POSITION, BED LOCKED, AND SAFETY MEASURES IN PLACE. WILL CONTINUE TO MONITOR.
[2021-02-19] MEDS: DEXTROSE 50% 50 ML SYR IVP PRN ×2 (08:26→16:18)
--- NOTE | 2021-02-19 08:26 | NUR ---
DIALYSIS NURSE ARRIVED. WILL HOLD MEDICATIONS POST DIALYSIS. CHECKED BLOOD SUGAR, 39, HELD INSULIN. PUSHED DEXTROSE 50, WILL RECHECK IN 30 MINS. WILL CONTINUE TO MONITOR.
--- NOTE | 2021-02-19 08:33 | NUR ---
PATIENT IS ON INSULIN DRIP AND NOT ON ANY IVF, LAST GLUCOSE CHECK 39, PATIENT IS NPO EXCEPT MED, DR STRAUSS MADE AWARE. PER DR STRAUSS, START PATIENT ON TUBE FEEDING AT 20 ML/HR. PRIMARY RN MARIVEL MADE AWARE.
--- NOTE | 2021-02-19 08:56 | NUR ---
STARTED FEEDING AT 20 ML/HR PER DR. STRAUSS. RECHECKED BLOOD SUGAR, 108. RESTARTED INSULIN DRIP AT 0.05 UNITS/KG/HR. WILL CONTINUE TO MONITOR.
--- NOTE | 2021-02-19 10:00 | NUR ---
DR.WERTZ BERRIOS. AWARE OF PATIENTS CONDITION AND STATUS. UPDATED HER ON PATIENTS INCREASED BLOOD SUGAR. STATED TO CHANGE FREQUENCY OF ACCUCHECKS TO EVERY 4 HOURS IF NEXT BLOOD SUGAR IS LESS THAN 200. WILL CONTINUE TO MONITOR.
--- NOTE | 2021-02-19 10:05 | NUR ---
CHECKED BLOOD SUGAR, 122. SECOND ACCUCHECK IN A ROW BETWEEN 80-150. WILL SWITCH FREQUENCY TO EVERY [address] STRAUSS. WILL CONTINUE TO MONITOR. Addendum: 02/19/21 at 1012 by Camilla Delvalle RN RN 4 ACCUCHECKS IN A ROW BETWEEN 80-150. DISCUSSED WITH CHARGE NURSE, CONTINUED FREQUENCY OF EVERY 2 HOURS RELATED TO PATIENT HAD PREVIOUS LOW BLOOD SUGAR OF 39. WILL CONTINUE TO MONITOR.
--- NOTE | 2021-02-19 10:24 | NUR ---
ATTEMPTED TO SEE PATIENT FOR PHYSICAL THERAPY TREATMENT HOWEVER REQUESTED TO HOLD PT SERVICES FOR TODAY PER CHARGE NURSE. WILL FOLLOW UP IF PATIENT IS APPROPRIATE.
--- NOTE | 2021-02-19 11:22 | NUR ---
RECEIVED A CALL FROM SISTER AKIL, UPDATED AKIL WITH PATIENT'S CURRENT CONDITION THAT PATIENT IS IN DIALYSIS AT THIS TIME AND ANSWERED ALL AKIL'S QUESTIONS, AKIL WAS AWARE OF CURRENT CONDITION AND PLAN OF CARE.
[2021-02-19] MEDS: ASPIRIN 81 MG TAB.CHEW PO SCH (11:55)
[2021-02-19] MEDS: LACTOBACILLUS RHAMNOSUS GG 1 EACH CAP GT SCH (11:55)
[2021-02-19] MEDS: DOCUSATE 100 MG/10 ML UDC GT SCH ×2 (11:55→21:00)
[2021-02-19] MEDS: DEXAMETHASONE 4 MG/ML VIAL IVP SCH (11:56)
[2021-02-19] MEDS: PANTOPRAZOLE 40 MG INJ VIAL IVP SCH (11:57)
[2021-02-19] MEDS: ZINC SULF 220 MG CAP PO SCH (11:58)
[2021-02-19] MEDS: ASCORBIC ACID 500 MG TAB PO SCH (11:58)
[2021-02-19] MEDS: ATORVASTATIN 80 MG TAB PO SCH (11:58)
[2021-02-19] MEDS: METOPROLOL 25 MG TAB PO SCH ×2 (11:59→21:00)
[2021-02-19] MEDS: POLYETHYLENE GLYCOL 17 GM/PKT GT SCH (12:00)
--- NOTE | 2021-02-19 12:00 | NUR ---
CHECKED RESIDUAL, 30 ML. ADMINISTERED MEDICATION. HELD HEPARIN DUE TO DIALYSIS NURSE ADMINISTERING 42759 UNITS POST DIALYSIS. FLUSHED AFTER. PROVIDED ORAL CARE, HYGIENE CARE, MCCLAIN CARE, AND CHG BATH. NO SIGNS OF PAIN OR DISTRESS. RESTRAINTS ON AND NO SIGNS OF INJURY. BARBACK AND PULSE OXIMETER IN PLACE. PATIENT LYING IN BED, HEAD OF BED AT 30 DEGREES, BED LOCKED AND LOW POSITION. SAFETY MEASURES IN PLACE. WILL CONTINUE TO MONITOR.
--- NOTE | 2021-02-19 13:15 | NUR ---
CHECKED ON PATIENT. NO SIGNS OF PAIN OR DISTRESS. WILL CONTINUE TO MONITOR.
--- NOTE | 2021-02-19 13:40 | NUR ---
PT PLACED ON SBT CPAP 5 PS 8 FIO2 28%. NURSE MADE AWARE. WILL CONTINUE TO MONITOR.
[2021-02-19 13:58] LABS: ANION GAP 22.4 (8-16); CARBON DIOXIDE 21.4 mmol/L (21-32); POTASSIUM 4.8 mmol/L (3.5-5.1)
[2021-02-19 14:01] LABS: CREATININE 4.8 mg/dL (0.6-1.3)
--- NOTE | 2021-02-19 14:30 | NUR ---
CHECKED ON PATIENT. NO SIGNS OF DISTRESS OR PAIN. ON CPAP TRIAL. WILL CONTINUE TO MONITOR.
--- NOTE | 2021-02-19 15:31 | NUR ---
PT REMAINS ON SBT RR 30, ADEQUATE VT AND WEANING PARAMETERS OBTAINED. FIO2 INCREASED TO 30% DUE TO 87% SPO2. WILL CONTINUE TO MONITOR.
--- NOTE | 2021-02-19 16:00 | NUR ---
CHECKED PATIENTS BLOOD SUGAR, 38, RECHECKED ON OTHER HAND, 39. CHECKED RESIDUAL, 5 ML, TOLERATING FEEDING. ADMINISTERED D50 TO CORRECT BLOOD SUGAR. WILL REEVALUATE IN 30 MINS.
[2021-02-19 16:34] LABS: ANION GAP 22.9 (8-16); CARBON DIOXIDE 20.7 mmol/L (21-32); POTASSIUM 5.6 mmol/L (3.5-5.1)
[2021-02-19 16:49] LABS: CREATININE 5.4 mg/dL (0.6-1.3)
--- NOTE | 2021-02-19 17:00 | NUR ---
RECEIVED CRITICAL LAB FOR BLOOD GLUCOSE 48, BUN 71, CR 5.4, DR STRAUSS MADE AWARE. PER DR STRAUSS, DC INSULIN DRIP AND CHECK BLOOD GLUCOSE Q4H. PRIMARY RN MARIVEL MADE AWARE.
--- NOTE | 2021-02-19 17:05 | NUR ---
RECHECKED BLOOD SUGAR, 164. SWITCH FREQUENCY TO EVERY 4 HOURS. WILL CONTINUE TO MONITOR.
--- NOTE | 2021-02-19 17:31 | NUR ---
PT NOT IN ANY DISTRESS AT THIS TIME. NURSE IS BEDSIDE. PT REMAINS ON AC MODE. ETT IS SECURE WITH A PATENT AIRWAY. VENT ALARMS REMAIN ON AND FUNCTIONING.
--- NOTE | 2021-02-19 19:15 | NUR ---
ENDORSED TO WIRE PH[employer] OPERATOR NEWS NURSE, WADE LINTON, FOR CONTINUITY OF CARE.
--- NOTE | 2021-02-19 19:30 | NUR ---
RECEIVED CARE AND REPORT FROM SHANNAN RN. WHEN ENTERING THE PATIENT ROOM, PATIENT INTUBATED AND LIGHT/MINIMAL SEDATION, RASS -1. PATIENT ABLE TO COMMUNICATE BY NODDING, OPENS EYES WHEN BEING SPOKEN TO. PATIENT ETT TO VENT, AC/VC MODE FIO2 28%, VT 450, RR 20, PEEP 5, TOLERATING VENT SETTINGS WELL, NO SIGNS OF DISTRESS NOTED WHEN AT THE BEDSIDE OR ON THE MONITOR. HOB 30 DEGREES, INTUBATED, RESTING IN A POSITION OF COMFORT. PATIENT HAS OG TUBE SECURED, ASPIRATED, AUSCULTATED AND FLUSHING WELL. PATIENT HAS TUBE FEEDING ORDER OF NEPRO RUNNING 40 ML/HR, NO FWF, TOLERATING WELL. PATIENT CONNECTED TO CONTINUOUS CARDIAC MONITORING, NSR/ST ON THE MONITOR, WILL CONTINUE TO CLOSELY MONITOR THROUGHOUT THE SHIFT. PATIENT IV SITES INCLUDE RIGHT UPPER ARM PICC LINE, RIGHT FOREARM 20G, AND RIGHT IJ CARLITOS CATH SITES INTACT, DRY AND FLUSHING WELL, IV CAPS CHANGED. PATIENT DRIPS CURRENTLY RUNNING INCLUDE PRECEDEX AT 0.4 MCG/KG/HR AND IVF 0.9% 5 ML/HR, TKO. PATIENT APPROXIMATE WEIGHT IS 93 KG. PATIENT HAS A MCCLAIN CATHETER IN PLACE, INTACT, SECURED AND DRAINING WELL. PATIENT CURRENTLY BEING OFFLOADED FROM PRESSURE POINTS WITH USE OF PILLOWS AND FREQUENT REPOSITIONING. BILATERAL SOFT WRIST RESTRAINTS APPLIED TO THE PATIENT'S LEFT AND RIGHT WRISTS. PATIENT CONTINUING TO OCCASIONALLY ATTEMPT TO PULL AT TUBES AND LINES, RESTRAINTS CONTINUE TO BE NEEDED FOR PATIENT SAFETY. PMSC'S INTACT AND CHECKED OFTEN AND FREQUENTLY. RELEASE AND REAPPLY FOR 15 MINUTES EVERY Q2 HOURS. SKINS INTACT. PATIENT HAS AN EXISTING LEFT LEG BKA. WILL CONTINUE TO CLOSELY MONITOR. BED LOCKED AND LOWERED INTO A POSITION OF SAFETY. COMFORT MEASURES IN PLACE, PROMOTION OF A RESTFUL ENVIRONMENT IN ROOM WITH DECREASED STIMULI, CLOSE TO THE NURSES STATION. WILL CONTINUE TO CLOSELY MONITOR AND FREQUENTLY ROUND THROUGHOUT THE SHIFT.
--- NOTE | 2021-02-19 19:35 | NUR ---
PT SEEN AND ASSESSED. RECEIVED INTUBATED PT ON VENTILATOR SUPPORT. ETT SIZE 8.0 AND SECURED WITH ANCHOR-FAST @ 22cm TEETH. NOTICE ADEQUATE CHEST RISE AND FALL. VENT SETTINGS: AC/VC RR 20, VT 450, PEEP 5, FiO2 28%. SPO2 92%. ALARMS SET AND FUNCTIONING. VENT PLUGGED IN RED OUTLET. AMBU BAG AT BEDSIDE. AUSCULTATION REVEALS BILATERAL CLEAR BREATH SOUNDS. SUCTION SMALL CLEAR/ WHITE THICK SECRETIONS. PT IS IN NO RESPIRATORY DISTRESS. HHN TX GIVEN AND PT TOLERATED TX WELL. NO ADVERSE REACTION. WILL CONTINUE TO MONITOR PT.
[2021-02-19] MEDS: INSULIN LISPRO SLIDING SCALE 100 UNITS/ML VIAL SUBQ PRN ×2 (20:04→23:19)
--- NOTE | 2021-02-19 20:09 | NUR ---
VAP ORAL CARE, ET/ORAL SUCTIONING, REPOSITIONING, HYGIENE AND SAFETY CHECKS IN PLACE AND PROVIDED. NO OBVIOUS SIGNS OF DISTRESS OBSERVED WHILE AT BEDSIDE WITH THE PATIENT. HOB 30 DEGREES, INTUBATED, RASS -1. WILL CONTINUE TO CLOSELY MONITOR AND FREQUENTLY ROUND THROUGHOUT THE SHIFT.
--- NOTE | 2021-02-19 20:34 | NUR ---
RT CALLED DUE TO PATIENT OCCASIONALLY DESATURATING ON THE MONITOR. WILL CONTINUE TO CLOSELY MONITOR AND FREQUENTLY ROUND.
--- NOTE | 2021-02-19 20:35 | NUR ---
CALLED TO BEDSIDE DUE TO PT DESATURATING. CHANGED SPO2 PROBE SITE AND SUCTIONED PT. NO IMPROVEMENT. FiO2 TITRATED TO 35%. SPO2 92%. RN NOTIFIED. WILL CONTINUE TO MONITOR PT.
[2021-02-19 20:49] LABS: ANION GAP 26.3 (8-16); CARBON DIOXIDE 19.3 mmol/L (21-32)
--- NOTE | 2021-02-19 20:53 | NUR ---
RECIEVED CALL FROM LAB REGARDING CRITICAL LAB VALUES.
[2021-02-19 20:54] LABS: CREATININE 5.8 mg/dL (0.6-1.3); POTASSIUM 6.6 mmol/L (3.5-5.1)
--- NOTE | 2021-02-19 21:05 | NUR ---
CALLED FOR DR. KATHLEEN, CLIENT SPECIALIST [facility] REGARDING CRITICAL LAB VALUES. AWAITING CALLBACK.
--- NOTE | 2021-02-19 21:37 | NUR ---
PATIENT HAD LARGE QUANTITY BM, RUNNY, LIGHT BROWN-GREENISH TINGE. PATIENT FULLY CLEANED, GOWN CHANGED, LINEN CHANGED, Z GUARD PASTE APPLIED TO SACRAL AREA, ET/ORAL SUCTIONED, REPOSITIONED, HYGIENE, SAFETY CHECKS PROVIDED. WILL CONTINUE TO CLOSELY MONITOR AND FREQUENTLY ROUND OFTEN.
[2021-02-19] MEDS: INSULIN LANTUS 100 UNITS/ML 10 ML VIAL SUBQ SCH (21:38)
--- NOTE | 2021-02-19 21:45 | NUR ---
RE-CALLED DR. KATHLEEN REGARDING CRITICAL LAB VALUES, WILL CONTINUE TO RECONTACT TO GIVE UPDATE AND NOTIFY OF LAB VALUES.
--- NOTE | 2021-02-19 21:50 | NUR ---
RECEIVED CALL FROM DR. KATHLEEN, GAVE UPDATE REGARDING PATIENT STATUS AND NOTIFIED OF ABNORMAL LAB VALUES OF POTASSIUM 6.6, GLUCOSE 226, BUN [address] KATHLEEN GAVE NO NEW ORDERS, ADVISED TO CONTINUE TO MONITOR.
--- NOTE | 2021-02-19 22:59 | NUR ---
RT TO CALLED TO BEDSIDE DO TO PATIENT DESATURATING. WILL CONTINUE TO CLOSELY MONITOR AND FREQUENTLY ROUND.
--- NOTE | 2021-02-19 23:01 | NUR ---
CALLED TO BEDSIDE DUE TO PT DESATURATING. TITRATED FiO2 TO 100%. ABG COLLECTED.
--- NOTE | 2021-02-19 23:35 | NUR ---
VAP ORAL CARE, ET/ORAL SUCTIONING, HYGIENE, SAFETY CHECKS AND REPOSITIONING PROVIDED. PATIENT RESTING, NO SIGNS OF DISTRESS OBSERVED WHILE AT BEDSIDE. WILL CONTINUE TO CLOSELY MONITOR AND FREQUENTLY ROUND.
--- NOTE | 2021-02-19 23:55 | NUR ---
ABG RESULTS WERE REPORTED TO DR. HART.
[2021-02-20] VITALS: BP 123/43
--- NOTE | 2021-02-20 00:15 | NUR ---
PATIENT APPEARS TO HAVE NO GAG/COUGH REFLEX. PRECEDEX DRIP TURNED OFF, CONTINUE TO CLOSELY MONITOR AND REASSESS OFTEN.
[2021-02-20 00:49] LABS: ANION GAP 25.8 (8-16); CARBON DIOXIDE 18.3 mmol/L (21-32)
[2021-02-20 00:55] LABS: CREATININE 6.3 mg/dL (0.6-1.3); POTASSIUM 7.1 mmol/L (3.5-5.1)
--- NOTE | 2021-02-20 00:55 | NUR ---
RECEIVED CALL FROM LAB REGARDING CRITICAL LAB VALUES. WILL CONTINUE TO CLOSELY MONITOR AND FREQUENTLY ROUND.
[2021-02-20 01:02] VITALS: BP 102/35
--- NOTE | 2021-02-20 01:02 | NUR ---
CALLED FOR DR. KATHLEEN, TO UPDATE OF PATIENT STATUS AND NOTIFY OF CRITICAL LAB VALUES. AWAITING CALL BACK.
--- NOTE | 2021-02-20 01:10 | NUR ---
TITRATED FiO2 TO 100%. DUE TO PT DESATURATING.
[2021-02-20] MEDS: ALBUTEROL SULFATE/IPRATROPIU 3 ML SOL IH SCH (01:15)
--- NOTE | 2021-02-20 01:25 | NUR ---
PT O2 DROPS WITH BP. CHECK PULSE, NO PULSE. CODE BLUE CALLED. CHEST COMPRESSIONS STARTED. SEE CODE SHEET FOR MORE DETAILS.
--- NOTE | 2021-02-20 01:25 | NUR ---
JIMENEZ HATCH CALLED, AT BEDSIDE WITH RT. CPR INTERVENTIONS STARTED. JIMENEZ TEAM AND DR. LESTER ARRIVED TO BEDSIDE TO CONTINUE CPR FOR APPROXIMATELY 30 MIN.
[2021-02-20] MEDS ORDERED: CALCIUM CHLORIDE 10% 100 MG/ML SYR IVP ONE (01:45)
[2021-02-20] MEDS ORDERED: BLOOD GLUCOSE MONITORING 1 DEV DEV FS SCH (01:45)
--- NOTE | 2021-02-20 01:51 | NUR ---
CPR INTERVENTIONS CONTINUED BUT UNSUCCESSFUL. PATIENT PRONOUNCED BY DR. LESTER AT [id number].
--- NOTE | 2021-02-20 02:01 | NUR ---
FAMILY NOTIFIED OF PATIENT CONDITION.
--- NOTE | 2021-02-20 02:20 | NUR ---
CNA CAREGIVER NOTIFIED.
--- NOTE | 2021-02-20 02:30 | NUR ---
[facility] NOTIFIED.
--- NOTE | 2021-02-20 06:00 | NUR ---
BODY PICKED UP/TRANSPORTED BY [facility].
== END 2021-02-20 01:51 | DRG 870 ==
LOC: MED 07:57 → MIC 09:34
PROVIDERS: ADMIT Family Medicine; ATTEND Family Medicine
PROC: 02HV33Z Insertion of Infusion Device into Superior Vena Cava, Percutaneous Approach (ICD-10-PCS; 2021-02-06)
PROC: B548ZZA Ultrasonography of Superior Vena Cava, Guidance (ICD-10-PCS; 2021-02-06)
PROC: XW13325 Transfusion of Convalescent Plasma (Nonautologous) into Peripheral Vein, Percutaneous Approach, New Technology Group 5 (ICD-10-PCS; 2021-02-06)
PROC: 5A09357 Assistance with Respiratory Ventilation, Less than 24 Consecutive Hours, Continuous Positive Airway Pressure (ICD-10-PCS; 2021-02-06)
PROC: 5A09357 Assistance with Respiratory Ventilation, Less than 24 Consecutive Hours, Continuous Positive Airway Pressure (ICD-10-PCS; 2021-02-07)
PROC: 5A1955Z Respiratory Ventilation, Greater than 96 Consecutive Hours (ICD-10-PCS; principal; 2021-02-08)
PROC: 0BH17EZ Insertion of Endotracheal Airway into Trachea, Via Natural or Artificial Opening (ICD-10-PCS; 2021-02-08)
PROC: 02HV33Z Insertion of Infusion Device into Superior Vena Cava, Percutaneous Approach (ICD-10-PCS; 2021-02-08)
PROC: B548ZZA Ultrasonography of Superior Vena Cava, Guidance (ICD-10-PCS; 2021-02-08)
PROC: 5A1D70Z Performance of Urinary Filtration, Intermittent, Less than 6 Hours Per Day (ICD-10-PCS; 2021-02-09)
PROC: 30233N1 Transfusion of Nonautologous Red Blood Cells into Peripheral Vein, Percutaneous Approach (ICD-10-PCS; 2021-02-10)
PROC: 5A1D70Z Performance of Urinary Filtration, Intermittent, Less than 6 Hours Per Day (ICD-10-PCS; 2021-02-11)
PROC: 5A1D70Z Performance of Urinary Filtration, Intermittent, Less than 6 Hours Per Day (ICD-10-PCS; 2021-02-13)
PROC: 5A1D70Z Performance of Urinary Filtration, Intermittent, Less than 6 Hours Per Day (ICD-10-PCS; 2021-02-15)
PROC: 5A1D70Z Performance of Urinary Filtration, Intermittent, Less than 6 Hours Per Day (ICD-10-PCS; 2021-02-17)
PROC: 5A1D70Z Performance of Urinary Filtration, Intermittent, Less than 6 Hours Per Day (ICD-10-PCS; 2021-02-19)
PROC: 5A12012 Performance of Cardiac Output, Single, Manual (ICD-10-PCS; 2021-02-20)
DX: A41.9 Sepsis, unspecified organism (principal); E11.10 Type 2 diabetes mellitus with ketoacidosis without coma; U07.1 COVID-19; J12.82 Pneumonia due to coronavirus disease 2019; N17.0 Acute kidney failure with tubular necrosis; J80 Acute respiratory distress syndrome; I21.A1 Myocardial infarction type 2; N18.6 End stage renal disease; E43 Unspecified severe protein-calorie malnutrition; E87.1 Hypo-osmolality and hyponatremia; E87.2 Acidosis; N18.4 Chronic kidney disease, stage 4 (severe); I12.0 Hypertensive chronic kidney disease with stage 5 chronic kidney disease or end stage renal disease; D63.8 Anemia in other chronic diseases classified elsewhere; E11.22 Type 2 diabetes mellitus with diabetic chronic kidney disease; E11.51 Type 2 diabetes mellitus with diabetic peripheral angiopathy without gangrene; E78.5 Hyperlipidemia, unspecified; J45.909 Unspecified asthma, uncomplicated; M19.90 Unspecified osteoarthritis, unspecified site; E87.5 Hyperkalemia; K72.90 Hepatic failure, unspecified without coma; E66.9 Obesity, unspecified; I46.9 Cardiac arrest, cause unspecified; Z22.322 Carrier or suspected carrier of Methicillin resistant Staphylococcus aureus; Z82.49 Family history of ischemic heart disease and other diseases of the circulatory system; Z83.3 Family history of diabetes mellitus; Z89.512 Acquired absence of left leg below knee; Z79.4 Long term (current) use of insulin; Z79.82 Long term (current) use of aspirin; Z79.899 Other long term (current) drug therapy; Z68.28 Body mass index [BMI] 28.0-28.9, adult
CPT/HCPCS: 36415; 36430; 36600; 70450; 71045; 74018; 76705; 76770; 78582; 80048; 80053; 81001; 82140; 82150; 82550; 82553; 82803; 83036; 83605; 83615; 83690; 83735; 83880; 84100; 84436; 84439; 84443; 84479; 84484; 85025; 85379; 85610; 85651; 85730; 86140; 86704; 86706; 86708; 86709; 86803; 86886; 86900; 86901; 86920; 87040; 87070; 87081; 87205; 87340; 92610; 92700; 93005; 93925; 93970; 94003; 94640; 94660; 96365; 96368; 96375; 97110; 97163-GP; 99291; C9113; J0360; J0456; J0696; J1100; J1644; J1815; J1940; J1956; J2001; J2060; J2270; J2704; J3010; J3480; J3490; J3535; J7030; J7042; J7060; P9016; P9017; Q5106; U0003